=== PATIENT | male | born 1935 | race Asian ===

== ENCOUNTER 2017-03-28 13:10 | Inpatient (IN) | payer MEDICARE ==
[~2017-03-28] VITALS: Ht 167.6 cm; Wt 72.7 kg
[2017-03-28] VITALS (24 sets, daily range): BP systolic 97–124; BP diastolic 62–90
[2017-03-28] MEDS ORDERED: Piperacillin/Tazobactam 4.5 GM in NS 110 ML IV STA (13:19)
--- NOTE | 2017-03-28 13:25 | Emergency Room Report ---
History of Present Illness General Chief Complaint: Dyspnea/Respdistress Source: Medical Record Present Illness HPI 81YOM BIBEMS from SNF for cough, fever from [facility] Supposedly pulled out Gtube, Sandoval was placed in its place to hold open stoma History of Atrial Fib with Rvr- unsure if took Cardizem today On Coumadin Not contributing to HPI All info from patient record, chart Allergies: Coded Allergies: No Known Allergies (Unverified , 03/28/17) Patient History Past Medical History: AFib, psych hx, other - PNA Past Surgical History: unable to obtain Pertinent Family History: unable to obtain Social History: Denies: alcohol use, drug use, smoking Immunizations: UTD Reviewed Nursing Documentation: PMH: Agreed, PSxH: Agreed Nursing Documentation-PMH Hx Cardiac Problems: Yes Hx Hypertension: Yes Hx Pacemaker: No Hx Asthma: No Hx Diabetes: No Hx Cancer: No Hx Dialysis: No History Of Psychiatric Problem: Yes Review of Systems All Other Systems: limited - Non-verbal Physical Exam Vital Signs Date Time Temp Pulse Resp B/P Pulse Ox O2 Delivery O2 Flow Rate FiO2 03/28/17 13:12 104.2 116 26 130/90 94 Non-Rebreather Sp02 EP Interpretation: reviewed, abnormal General Appearance: normal inspection, well appearing, no apparent distress, alert, GCS 15, moderate distress, other - Diaphoretic Head: normocephalic, atraumatic Eyes: bilateral eye EOMI, bilateral eye PERRL ENT: normal ENT inspection, hearing grossly normal, normal voice Neck: normal inspection, full range of motion, supple, no bony tend Respiratory: normal inspection, lungs clear, normal breath sounds, no respiratory distress, no retraction, no wheezing Cardiovascular #1: no edema, tachycardia, irregularly irregular Gastrointestinal: normal inspection, normal bowel sounds, non tender, soft, no guarding, no hernia, other - Sandoval cath in Gtube access site. Genitourinary: no CVA tenderness Musculoskeletal: normal inspection, back normal, normal range of motion, Charbel' s Sign negative Neurologic: normal inspection, alert, oriented x3, responsive, record press supervisor III-XII nml as tested, motor strength/tone normal, speech normal Psychiatric: normal inspection, judgement/insight normal, mood/affect normal Skin: normal inspection, normal color, no rash Medical Decision Making Medicare Attestation I Keke Johnson MD hereby attest that the medical record entry for date of service, 03/28/17 accurately reflects signatures/notations that I made in my capacity as MD when I treated/diagnosed the above listed Medicare beneficiary. I attest that this information is true, accurate and complete to the best of my knowledge. I understand that any falsification, omission, or concealment of material fact may subject me to administrative, civil, or criminal liability. This patient warrants hospital admission for extreme of age and has a condition that cannot be treated as outpatient. Diagnostic Impression: Primary Impression: Sepsis Qualified Codes: A41.9 - Sepsis, unspecified organism Additional Impressions: Atrial fibrillation with tachycardic ventricular rate Hyperkalemia NANI (acute kidney injury) ER Course Sepsis - Tachycardia, fever - From SNF, covered with empiric Abx - CXR no obvious PNA - ?aspiration - Blood, Urine Cx pending Atrial fib with RVR - On Cardizem. Initial rate 160 - Improved after tx for sepsis and with IV cardizem 10mg IV Elevated troponin - Likely demand ischemia in setting of sepsis, RVR - On Coumadin so will NOT give ASA HyperK - Gave calcium, kayexelate - Did NOT give albuterol given tachycardia Gtube replacement to Dr Ayers for consult placed by Dr Whittington Endorsed to Dr Whittington at 2pm for tele admit EKG Diagnostic Results Rate: tachycardiac Rhythm: other - Atrial fib ST Segments: no acute changes ASA given to the pt in ED: No Rhythm Strip Diag. Results EP Interpretation: yes Rate: 160 Rhythm: NSR, no PVC's, no ectopy Last Vital Signs Date Time Temp Pulse Resp B/P Pulse Ox O2 Delivery O2 Flow Rate FiO2 03/28/17 13:12 104.2 116 26 130/90 94 Non-Rebreather Status: improved Disposition: ADMITTED INPATIENT Condition: Serious KEKE JOHNSON M.D. Mar 28, 2017 13:25
[2017-03-28] MEDS ORDERED: ACETAMINOP160 MG/51 GT (13:28)
[2017-03-28] MEDS ORDERED: PROTONIX40 M2 GT (13:28)
[2017-03-28] MEDS ORDERED: REGLAN10 MG GT (13:28)
[2017-03-28] MEDS ORDERED: CARDIZEM60 MG GT (13:28)
[2017-03-28] MEDS ORDERED: ALBUTEROL2.5 MG/3 M INH (13:28)
[2017-03-28] MEDS ORDERED: Acetaminophen 650 MG SUPP RECTAL ONE (13:30)
[2017-03-28] MEDS ORDERED: JEVITY 1.5 CA1000 ML GT (13:33)
[2017-03-28] MEDS ORDERED: COUMADIN4 MG GT (13:33)
[2017-03-28] MEDS ORDERED: Zosyn 4.5gm inj ONE (13:40)
[2017-03-28 13:44] LABS: MEAN CORPUSCULAR HEMOGLOBIN 30.5 PG (27.0-31.0); MEAN CORPUSCULAR HGB CONC 31.8 G/DL (32.0-36.0); MEAN CORPUSCULAR VOLUME 96 FL (80-99); MEAN PLATELET VOLUME 5.4 FL (6.5-10.1); PLATELET COUNT 212 K/UL (150-450); RED BLOOD COUNT 5.25 M/UL (4.70-6.10); RED CELL DISTRIBUTION WIDTH 15.9 % (11.6-14.8); WHITE BLOOD COUNT 10.9 K/UL (4.8-10.8)
[2017-03-28 13:56] LABS: ALANINE AMINOTRANSFERASE 18 U/L (3-41); ALBUMIN/GLOBULIN RATIO 1.2 (1.0-2.7); ANION GAP 19 (5-15); ASPARTATE AMINO TRANSFERASE 24 U/L (5-40); CALCIUM 9.9 mg/dL (8.6-10.2); CARBON DIOXIDE 21 mEQ/L (20-30); CHLORIDE 105 mEQ/L (98-107); CREATININE 1.3 mg/dL (0.7-1.2); HEMOLYSIS 4; POTASSIUM 5.6 mEQ/L (3.4-4.9); SODIUM 145 mEQ/L (135-145)
[2017-03-28 13:59] LABS: TROPONIN I 0.52 ng/mL (<=0.30)
[2017-03-28] MEDS ORDERED: Diltiazem 25mg/5ml IV ONE ×2 (14:00→14:45)
[2017-03-28 14:03] LABS: BAND NEUTROPHILS % (MANUAL) 0 % (0-8); BASOPHILS % (MANUAL) 0 % (0-2); EOSINOPHILS % (MANUAL) 0 % (0-3); LYMPHOCYTES % (MANUAL) 15 % (20-45); NEUTROPHILS % (MANUAL) 77 % (45-75); PLATELET ESTIMATE ADEQUATE; PLATELET MORPHOLOGY NORMAL; REFLEX LACTIC ACID YES OR NO YES; TOTAL CELLS COUNTED 100
[2017-03-28 14:04] LABS: ANISOCYTOSIS 1+; STOMATOCYTES 1+
[2017-03-28 14:07] LABS: CKMB 1.6 ng/mL (< 6.7)
[2017-03-28] MEDS ORDERED: Calcium Gluconate 1gm/10ml vial IVP ONE (14:15)
[2017-03-28] MEDS: Sodium Polystyrene Sulfonate 15gm Powder ORAL ONE ×2 (14:15→14:52)
[2017-03-28 14:17] LABS: BILIRUBIN,DIRECT 0.2 mg/dL (0.1-0.3)
[2017-03-28] MEDS ORDERED: DuoNeb 0.5-3(2.5)mg/3ml neb HHN PRN (14:30)
[2017-03-28] MEDS ORDERED: Vancomycin 1gm inj IVPB ONE (14:36)
--- NOTE | 2017-03-28 14:40 | Diagnostic Imaging Report ---
Indication: Dyspnea Comparison: None A single view chest radiograph was obtained. Findings: Lungs are clear. Heart is mildly enlarged. Bones are osteopenic. Aorta is mildly enlarged. Impression: No acute disease
[2017-03-28] MEDS ORDERED: Sodium Polystyrene Sulfonate Enema RECTAL ONE (15:15)
[2017-03-28 16:27] LABS: APPEARANCE,URINE SLIGHTLY CLOUDY; KETONES,URINE 1+ (NEGATIVE); LEUKOCYTE ESTERASE ,URINE 1+ (NEGATIVE); NITRITE,URINE NEGATIVE (NEGATIVE); PH,URINE 5 (4.5-8.0); PROTEIN,URINE 3+ (NEGATIVE); UROBILINOGEN,URINE NORMAL MG/DL (0.0-1.0)
[2017-03-28 16:38] LABS: AMORPHOUS SEDIMENT,UR FEW /LPF; BACTERIA,URINE MANY /HPF; RBC,URINE 60-80 /HPF (0 - 0)
[2017-03-28] MEDS ORDERED: Acetaminophen 650 MG SUPP RECTAL PRN (17:00)
[2017-03-28] MEDS: Solu-MEDROL 40mg Inj IVP SCH (17:00)
[2017-03-28] MEDS ORDERED: Vancomycin 1250mg/D5W 250ml IVPB ONE (18:00)
--- NOTE | 2017-03-28 21:45 | Cardiology Progress Note ---
Subjective Subjective 48 Objective Last 24 Hour Vital Signs Date Time Temp Pulse Resp B/P Pulse Ox O2 Delivery O2 Flow Rate FiO2 03/28/17 18:54 159 107/78 03/28/17 18:46 98.7 150 33 107/78 100 Simple Mask 8.0 03/28/17 18:05 133 27 112/86 100 Simple Mask 4.0 03/28/17 18:00 151 03/28/17 17:00 133 27 112/86 100 Simple Mask 8.0 03/28/17 14:50 122 119/90 03/28/17 14:30 104.2 122 7 119/90 100 Non-Rebreather 15.0 03/28/17 14:01 116 130/90 03/28/17 13:20 134 26 Simple Mask 8.0 03/28/17 13:20 102.0 134 26 115/82 100 Simple Mask 8.0 03/28/17 13:12 104.2 116 26 130/90 94 Non-Rebreather Laboratory Tests Test 03/28/17 13:25 03/28/17 15:25 03/28/17 16:00 White Blood Count 10.9 K/UL (4.8-10.8) H Red Blood Count 5.25 M/UL (4.70-6.10) Hemoglobin 16.0 G/DL (14.2-18.0) Hematocrit 50.5 % (42.0-52.0) Mean Corpuscular Volume 96 FL (80-99) Mean Corpuscular Hemoglobin 30.5 PG (27.0-31.0) Mean Corpuscular Hemoglobin Concent 31.8 G/DL (32.0-36.0) L Red Cell Distribution Width 15.9 % (11.6-14.8) H Platelet Count 212 K/UL (150-450) Mean Platelet Volume 5.4 FL (6.5-10.1) L Neutrophils (%) (Auto) % (45.0-75.0) Lymphocytes (%) (Auto) % (20.0-45.0) Monocytes (%) (Auto) % (1.0-10.0) Eosinophils (%) (Auto) % (0.0-3.0) Basophils (%) (Auto) % (0.0-2.0) Differential Total Cells Counted 100 Neutrophils % (Manual) 77 % (45-75) H Lymphocytes % (Manual) 15 % (20-45) L Monocytes % (Manual) 8 % (1-10) Eosinophils % (Manual) 0 % (0-3) Basophils % (Manual) 0 % (0-2) Band Neutrophils 0 % (0-8) Platelet Estimate Adequate Platelet Morphology Normal Anisocytosis 1+ Stomatocytes 1+ Sodium Level 145 mEQ/L (135-145) Potassium Level 5.6 mEQ/L (3.4-4.9) H Chloride Level 105 mEQ/L (98-107) Carbon Dioxide Level 21 mEQ/L (20-30) Anion Gap 19 (5-15) H Blood Urea Nitrogen 45 mg/dL (7-23) H Creatinine 1.3 mg/dL (0.7-1.2) H Estimat Glomerular Filtration Rate mL/min (>60) Glucose Level 136 mg/dL (74-106) H Lactic Acid Level 3.40 mmol/L (0.66-2.22) H 2.10 mmol/L (0.66-2.22) Calcium Level 9.9 mg/dL (8.6-10.2) Total Bilirubin 1.3 mg/dL (0.0-1.2) H Direct Bilirubin 0.2 mg/dL (0.1-0.3) Aspartate Amino Transf (AST/SGOT) 24 U/L (5-40) Alanine Aminotransferase (ALT/SGPT) 18 U/L (3-41) Alkaline Phosphatase 94 U/L (40-129) Total Creatine Kinase 56 U/L (38-174) Creatine Kinase MB 1.6 ng/mL (< 6.7) Creatine Kinase MB Relative Index 2.8 Troponin I 0.52 ng/mL (<=0.30) *H Pro-B-Type Natriuretic Peptide 83178 pg/mL (0-450) H Total Protein 8.0 g/dL (6.6-8.7) Albumin 4.4 g/dL (3.5-5.2) Globulin 3.6 g/dL Albumin/Globulin Ratio 1.2 (1.0-2.7) Urine Color Red Urine Appearance Slightly cloudy Urine pH 5 (4.5-8.0) Urine Specific [place] 1.025 (1.005-1.035) Urine Protein 3+ (NEGATIVE) H Urine Glucose (UA) Negative (NEGATIVE) Urine Ketones 1+ (NEGATIVE) H Urine Occult Blood 5+ (NEGATIVE) H Urine Nitrite Negative (NEGATIVE) Urine Bilirubin Negative (NEGATIVE) Urine Urobilinogen Normal MG/DL (0.0-1.0) Urine Leukocyte Esterase 1+ (NEGATIVE) H Urine RBC 60-80 /HPF (0 - 0) H Urine WBC 10-15 /HPF (0 - 0) H Urine Squamous Epithelial Cells None /LPF (NONE/OCC) Urine Amorphous Sediment Few /LPF (NONE) H Urine Bacteria Many /HPF (NONE) H NOBLE MALDONADO Mar 28, 2017 21:45
[2017-03-28] MEDS ORDERED: Zosyn 2.25gm inj IV SCH (22:00)
[2017-03-28] MEDS: Zoysn 3.37gm in D5W 110ml IVPB SCH (22:06)
--- NOTE | 2017-03-28 22:11 | Infectious Diseases Prog Note ---
Assessment/Plan Assessment/Plan Full consult dictated: A) 1) sepsis, uti, fevers, sob 2) arely 3) pmh noted P) 1) zosyn and vancomycin 2) check labs, cultures and chest x-ray 3) thank you Subjective Allergies: Coded Allergies: No Known Allergies (Unverified , 03/28/17) Objective Vital Signs Last 24 Hour Vital Signs Date Time Temp Pulse Resp B/P Pulse Ox O2 Delivery O2 Flow Rate FiO2 03/28/17 21:00 108 24 124/83 100 Simple Mask 8.0 03/28/17 20:00 111 23 120/71 100 Simple Mask 8.0 03/28/17 18:54 159 107/78 03/28/17 18:46 98.7 150 33 107/78 100 Simple Mask 8.0 03/28/17 18:05 133 27 112/86 100 Simple Mask 4.0 03/28/17 18:00 151 03/28/17 17:00 133 27 112/86 100 Simple Mask 8.0 03/28/17 14:50 122 119/90 03/28/17 14:30 104.2 122 7 119/90 100 Non-Rebreather 15.0 03/28/17 14:01 116 130/90 03/28/17 13:20 134 26 Simple Mask 8.0 03/28/17 13:20 102.0 134 26 115/82 100 Simple Mask 8.0 03/28/17 13:12 104.2 116 26 130/90 94 Non-Rebreather Height (Feet): 5 Height (Inches): 6.00 Weight (Pounds): 130 Laboratory Tests Test 03/28/17 13:25 03/28/17 15:25 03/28/17 16:00 03/28/17 21:50 White Blood Count 10.9 K/UL (4.8-10.8) H Red Blood Count 5.25 M/UL (4.70-6.10) Hemoglobin 16.0 G/DL (14.2-18.0) Hematocrit 50.5 % (42.0-52.0) Mean Corpuscular Volume 96 FL (80-99) Mean Corpuscular Hemoglobin 30.5 PG (27.0-31.0) Mean Corpuscular Hemoglobin Concent 31.8 G/DL (32.0-36.0) L Red Cell Distribution Width 15.9 % (11.6-14.8) H Platelet Count 212 K/UL (150-450) Mean Platelet Volume 5.4 FL (6.5-10.1) L Neutrophils (%) (Auto) % (45.0-75.0) Lymphocytes (%) (Auto) % (20.0-45.0) Monocytes (%) (Auto) % (1.0-10.0) Eosinophils (%) (Auto) % (0.0-3.0) Basophils (%) (Auto) % (0.0-2.0) Differential Total Cells Counted 100 Neutrophils % (Manual) 77 % (45-75) H Lymphocytes % (Manual) 15 % (20-45) L Monocytes % (Manual) 8 % (1-10) Eosinophils % (Manual) 0 % (0-3) Basophils % (Manual) 0 % (0-2) Band Neutrophils 0 % (0-8) Platelet Estimate Adequate Platelet Morphology Normal Anisocytosis 1+ Stomatocytes 1+ Sodium Level 145 mEQ/L (135-145) Potassium Level 5.6 mEQ/L (3.4-4.9) H Chloride Level 105 mEQ/L (98-107) Carbon Dioxide Level 21 mEQ/L (20-30) Anion Gap 19 (5-15) H Blood Urea Nitrogen 45 mg/dL (7-23) H Creatinine 1.3 mg/dL (0.7-1.2) H Estimat Glomerular Filtration Rate mL/min (>60) Glucose Level 136 mg/dL (74-106) H Lactic Acid Level 3.40 mmol/L (0.66-2.22) H 2.10 mmol/L (0.66-2.22) Pending Calcium Level 9.9 mg/dL (8.6-10.2) Total Bilirubin 1.3 mg/dL (0.0-1.2) H Direct Bilirubin 0.2 mg/dL (0.1-0.3) Aspartate Amino Transf (AST/SGOT) 24 U/L (5-40) Alanine Aminotransferase (ALT/SGPT) 18 U/L (3-41) Alkaline Phosphatase 94 U/L (40-129) Total Creatine Kinase 56 U/L (38-174) Creatine Kinase MB 1.6 ng/mL (< 6.7) Creatine Kinase MB Relative Index 2.8 Troponin I 0.52 ng/mL (<=0.30) *H Pending Pro-B-Type Natriuretic Peptide 97036 pg/mL (0-450) H Total Protein 8.0 g/dL (6.6-8.7) Albumin 4.4 g/dL (3.5-5.2) Globulin 3.6 g/dL Albumin/Globulin Ratio 1.2 (1.0-2.7) Urine Color Red Urine Appearance Slightly cloudy Urine pH 5 (4.5-8.0) Urine Specific [place] 1.025 (1.005-1.035) Urine Protein 3+ (NEGATIVE) H Urine Glucose (UA) Negative (NEGATIVE) Urine Ketones 1+ (NEGATIVE) H Urine Occult Blood 5+ (NEGATIVE) H Urine Nitrite Negative (NEGATIVE) Urine Bilirubin Negative (NEGATIVE) Urine Urobilinogen Normal MG/DL (0.0-1.0) Urine Leukocyte Esterase 1+ (NEGATIVE) H Urine RBC 60-80 /HPF (0 - 0) H Urine WBC 10-15 /HPF (0 - 0) H Urine Squamous Epithelial Cells None /LPF (NONE/OCC) Urine Amorphous Sediment Few /LPF (NONE) H Urine Bacteria Many /HPF (NONE) H Current Medications Medications (Trade) Dose Ordered Sig/Angel Route PRN Reason Start Time Stop Time Status Last Admin Dose Admin Acetaminophen 650 mg 650 mg Q4H PRN RECTAL Mild Pain (Pain Scale 1-3) 03/28/17 17:00 04/27/17 16:59 03/28/17 17:20 Albuterol/ Ipratropium (DuoNeb 0.5-3(2.5)mg/3ml) 3 ml 5x DAILYPRN PRN HHN Shortness of Breath 03/28/17 14:30 04/02/17 14:29 Clotrimazole (Lotrimin) 1 applic TWICE A DAY TOPIC 03/28/17 18:00 04/27/17 17:59 Dextrose STAT PRN IV Hypoglycemia 03/28/17 14:30 04/27/17 14:29 Diltiazem HCl/ Dextrose (Cardizem/D5W) 125 ml @ 0 mls/hr Q24H IV 03/28/17 19:00 03/29/17 18:59 03/28/17 18:54 Methylprednisolone Sodium Succinate (Solu-MEDROL) 40 mg EVERY 6 HOURS IVP 03/28/17 17:00 04/27/17 16:59 03/28/17 17:00 Ondansetron HCl (Zofran) 4 mg Q6H PRN IVP Nausea & Vomiting 03/28/17 14:30 04/27/17 14:29 Piperacillin Sod/ Tazobactam Sod/ Dextrose (Zosyn/D5W) 110 ml @ 27.5 mls/hr EVERY 8 HOURS IVPB 03/28/17 22:00 04/02/17 21:59 03/28/17 22:06 Sodium Chloride (0.45% NS 1000ml) 1,000 ml @ 50 mls/hr Q20H IV 03/28/17 17:00 04/27/17 16:59 03/28/17 17:00 Vancomycin HCl (Vanco rx to dose) 1 ea DAILY PRN MISC PRN RX PROTOCOL 03/28/17 16:30 04/27/17 16:29 Vancomycin HCl 750 mg/Dextrose 275 ml @ 183.708 mls/hr Q24H IVPB 03/29/17 18:00 04/03/17 17:59 ZANE DE LEON Mar 28, 2017 22:11
[2017-03-28 22:26] LABS: TROPONIN I < 0.30 ng/mL (<=0.30)
--- NOTE | 2017-03-28 23:15 | History and Physical Report ---
DATE OF ADMISSION: 03/28/2017 CHIEF COMPLAINT: Shortness of breath. HISTORY OF PRESENT ILLNESS: This is an 81-year-old [place] male, who is a resident of [facility]. I was called yesterday about the patient pulling his GT tube. This morning, the patient became short of breath and is transferred to this hospital ER. He is admitted to ICU in full-blown respiratory failure. The patient's daughter is at the bedside. The patient just came in few weeks ago to a [place] from [facility]. PAST MEDICAL HISTORY: 1. Status post CVA. 2. Chronic atrial fibrillation. 3. Hypokalemia. 4. COPD. HOME MEDICATIONS: Tylenol, albuterol, diltiazem, metoclopramide, Protonix, and Coumadin. ALLERGIES: No known drug allergies. FAMILY HISTORY: Unremarkable. SOCIAL HISTORY: [facility]. HABITS: He is nonsmoker. REVIEW OF SYSTEMS: Unable to obtain due to his mental status. PHYSICAL EXAMINATION: GENERAL: This is an elderly [place] male, who is in respiratory distress. VITAL SIGNS: Blood pressure 130/70, heart rate initially 160 to 170 and after Cardizem bolus went down to 116, . HEENT: Head is normocephalic and atraumatic. Pupils are equal, round, and reactive to light and accommodation. The patient is diaphoretic. NECK: Supple. Trachea midline. There was no lymphadenopathy or thyromegaly. LUNGS: HEART: Tachycardic and irregularly irregular. ABDOMEN: Slightly distended. Bowel sounds were active. He has a Sandoval catheter inserted in lieu of the G-tube. EXTREMITIES: No clubbing, cyanosis, or edema. He has advanced muscle wasting. NEUROLOGICAL: He is obtunded. There were no gross focal findings. LABORATORY AND ANCILLARY DATA: CBC, hemoglobin 16, otherwise within normal limits. Chemistry shows a sodium 145, potassium 5.6, BUN 45, creatinine 1.3, and glucose 136. Lactic acid is 3.4. Troponin level 0.52. ProBNP 11,116. ASSESSMENT: 1. Most likely aspiration episode with pneumonia. 2. Sepsis. 3. Status post cerebrovascular accident. 4. Chronic atrial fibrillation. 5. Hypokalemia. 6. Chronic obstructive pulmonary disease. PLAN: 1. Admit to intensive care unit. 2. Intravenous antibiotics. 3. ID, Pulmonary, and Cardiology consult. 4. Continue Coumadin per pharmacy protocol. 5. Obtain new G-tube. Eugene Caraballo M.D. DR: LUIS M JOB#: [id number] CC:
[2017-03-28 23:23] LABS: INR 1.3 (0.9-1.1)
[2017-03-29] VITALS (61 sets, daily range): BP systolic 94–134; BP diastolic 64–93
[2017-03-29] MEDS: Solu-MEDROL 40mg Inj IVP SCH ×5 (00:22→23:34)
[2017-03-29 05:45] LABS: TROPONIN I < 0.30 ng/mL (<=0.30)
[2017-03-29 05:54] LABS: BASOPHILS % (AUTO) 0.2 % (0.0-2.0); LYMPHOCYTES % (AUTO) 25.8 % (20.0-45.0); MEAN CORPUSCULAR HEMOGLOBIN 31.2 PG (27.0-31.0); MEAN CORPUSCULAR HGB CONC 32.6 G/DL (32.0-36.0); MEAN CORPUSCULAR VOLUME 96 FL (80-99); MEAN PLATELET VOLUME 5.9 FL (6.5-10.1); MONOCYTES % (AUTO) 1.5 % (1.0-10.0); NEUTROPHILS % (AUTO) 72.6 % (45.0-75.0); PLATELET COUNT 173 K/UL (150-450); RED BLOOD COUNT 4.06 M/UL (4.70-6.10); RED CELL DISTRIBUTION WIDTH 15.6 % (11.6-14.8); WHITE BLOOD COUNT 9.2 K/UL (4.8-10.8)
[2017-03-29] MEDS: Zoysn 3.37gm in D5W 110ml IVPB SCH ×3 (05:54→21:42)
[2017-03-29 05:56] LABS: ANION GAP 12 (5-15); CALCIUM 8.7 mg/dL (8.6-10.2); CARBON DIOXIDE 23 mEQ/L (20-30); CHLORIDE 111 mEQ/L (98-107); HEMOLYSIS 4; MAGNESIUM 2.3 mg/dL (1.7-2.5); POTASSIUM 4.4 mEQ/L (3.4-4.9); SODIUM 146 mEQ/L (135-145)
[2017-03-29] MEDS ORDERED: Tubing IV Secondary IV ONE (10:19)
[2017-03-29] MEDS ORDERED: Acetaminophen 650mg/20.3ml GT PRN (11:00)
--- NOTE | 2017-03-29 11:45 | Diagnostic Imaging Report ---
Indications: Dorsal breath Technique: Portable AP chest Findings: Comparison: 03/28/17 Inspiratory effort has decreased. Linear density has developed in the left lung base. Right lung remains clear except for persistent mild prominence of bronchovascular markings in space. Cardiac silhouette remains enlarged. Pulmonary vasculature remains within normal limits. No pleural abnormality. IMPRESSION: Element of subsegmental atelectasis left lung base Persistent prominence vascular markings right lung base, likely compressive Stable cardiomegaly
--- NOTE | 2017-03-29 12:00 | Consultation ---
DATE OF CONSULTATION: 03/28/2017 CARDIOLOGY CONSULTATION CONSULTING PHYSICIAN: Alona Frye M.D. REFERRING PHYSICIAN: Eugene Caraballo M.D. REASON FOR EVALUATION: Septic shock and atrial fibrillation with rapid ventricular rate. HISTORY OF PRESENT ILLNESS: History is taken from discussion with the emergency department physician, . The patient is nonverbal and unable to give any history. [facility] and heart rate increasing, atrial fibrillation, which appears to be chronic. He also has some significant psychiatric background disorder and has a G-tube which actually he pulled and a Sandoval catheter was put in place. Based on the previous records, the patient was on Coumadin before. Unfortunately, because of lack of communication with the patient, I cannot obtain review of systems. MEDICATIONS: His home medications prior to admission were all reviewed. PHYSICAL EXAMINATION: GENERAL: Reveals a sick man, stiff without motion, opens his eyes, does not follow any instructions. He has clutches rubber ball in his right hand. He appears to be flushed. VITAL SIGNS: Significant for blood pressure 115/80, heart rate is 130, temperature was 102.0, and oxygen saturation was on simple mask, it was 94 to 100%. Again, the patient appears to be very toxic, stiff. HEENT: He opens only his right eye, but I do not see obvious facial asymmetry. LUNGS: He has scattered rales. He looks cachectic. His PMI is palpable in the sixth intercostal space in anterior axillary line. He has a bouncing PMI, left ventricular heave. S1 is loud. S2 is physiologically split and also loud. HEART: His heart rate is extremely fast and irregular. ABDOMEN: Soft. There is a G-tube sticking out and there is Band-Aid on the top of it. EXTREMITIES: Lower extremity, he has skin discoloration in the ankle areas, brownish discoloration. Distal pulses barely palpable. His extremities are cold, but there is no acute ischemic changes. NEUROLOGICAL: Again, the patient is very stiff, not moving and not clear if he has lateralized neurologic deficit. LABORATORY AND DIAGNOSTIC DATA: His chest x-ray did not show pneumonia. His EKG shows heart rate about 130 beats per minute and he has evidence of left ventricular hypertrophy with strain. His laboratory data revealed potassium of 5.6, creatinine 1.3, BUN is 45. Lactic acid 3.4 . Troponin 0.52. ProBNP is 11,015. Creatinine is 1.3. Anion gap is 19. IMPRESSION AND RECOMMENDATIONS: Atrial fibrillation with rapid ventricular rate, most likely due to sepsis and looks like it was not new because the patient was anticoagulated in the past, so rate is going to be controlled with IV diltiazem. Also, the patient is septic, source of sepsis is unclear. The workup is going to be done, maybe he does not show pneumonia because he is very dehydrated. He is on the way to intensive care unit. We are going to check his PT/INR. We are going to control his rate with diltiazem drip. His condition is critical and I spent approximately one hour evaluating this patient and I am going him follow him on a daily basis. Thank you very much for your consultation. Alona Frye M.D. DR: INDERJIT JOB#: [id number] CC:
--- NOTE | 2017-03-29 12:16 | Infectious Diseases Prog Note ---
Assessment/Plan Assessment/Plan Full consult dictated: A) 1) sepsis, uti, fevers, sob, chest x-ray - atx 2) arely 3) pmh noted 4) allergies - negative P) 1) zosyn and vancomycin 2) check labs, cultures and chest x-ray 3) d/w Dr Hernandez Subjective Allergies: Coded Allergies: No Known Allergies (Unverified , 03/28/17) Objective Vital Signs Last 24 Hour Vital Signs Date Time Temp Pulse Resp B/P Pulse Ox O2 Delivery O2 Flow Rate FiO2 03/29/17 12:02 89 03/29/17 12:01 97.6 89 16 118/80 100 Non-Rebreather 35 03/29/17 11:30 90 16 120/75 100 Non-Rebreather 35 03/29/17 11:10 89 16 118/80 100 Non-Rebreather 35 03/29/17 10:30 86 16 113/75 100 Non-Rebreather 35 03/29/17 10:02 90 16 124/90 100 Non-Rebreather 35 03/29/17 09:43 95 124/90 03/29/17 09:33 92 16 129/90 100 Non-Rebreather 35 03/29/17 09:02 98 15 134/72 100 Non-Rebreather 35 03/29/17 08:30 96 15 128/86 100 Non-Rebreather 35 03/29/17 08:00 97.5 98 15 124/68 100 Non-Rebreather 35 03/29/17 08:00 98 03/29/17 07:22 Venturi Mask 6.0 35 03/29/17 07:21 99 Venturi Mask 6.0 35 03/29/17 07:21 103 20 Venturi Mask 6.0 35 03/29/17 07:00 93 15 123/86 100 Non-Rebreather 35 03/29/17 06:45 100 17 117/81 100 Non-Rebreather 35 03/29/17 06:30 102 15 117/81 100 Non-Rebreather 35 03/29/17 06:15 102 18 115/68 100 Non-Rebreather 35 03/29/17 06:00 101 18 121/90 99 Non-Rebreather 35 03/29/17 05:45 100 16 110/93 99 Non-Rebreather 35 03/29/17 05:30 98 15 111/83 100 Non-Rebreather 35 03/29/17 05:15 100 15 126/69 100 Non-Rebreather 35 03/29/17 05:00 104 17 107/75 99 Non-Rebreather 35 03/29/17 04:45 108 17 107/75 99 Non-Rebreather 35 03/29/17 04:30 102 17 113/80 98 Non-Rebreather 35 03/29/17 04:15 99 18 110/74 99 Non-Rebreather 35 03/29/17 04:00 97.8 100 16 98/70 99 Non-Rebreather 35 03/29/17 04:00 100 03/29/17 03:45 101 18 105/70 99 Non-Rebreather 35 03/29/17 03:30 101 18 111/65 99 Non-Rebreather 35 03/29/17 03:15 100 16 105/80 99 Non-Rebreather 35 03/29/17 03:00 100 17 100/78 99 Non-Rebreather 35 03/29/17 02:45 103 19 101/77 99 Non-Rebreather 35 03/29/17 02:30 102 18 115/73 99 Non-Rebreather 35 03/29/17 02:15 108 21 116/80 98 Non-Rebreather 35 03/29/17 02:00 106 18 106/81 99 Non-Rebreather 35 03/29/17 01:45 109 20 114/82 99 Non-Rebreather 35 03/29/17 01:30 110 21 120/90 99 Non-Rebreather 35 03/29/17 01:15 113 21 123/93 99 Non-Rebreather 35 03/29/17 01:00 109 21 114/73 99 Non-Rebreather 35 03/29/17 00:45 110 22 98/66 98 Non-Rebreather 35 03/29/17 00:30 109 23 118/80 98 Non-Rebreather 35 03/29/17 00:15 111 22 106/78 97 Non-Rebreather 35 03/29/17 00:00 110 03/29/17 00:00 98.4 109 21 106/78 98 Non-Rebreather 35 03/28/17 23:45 110 22 110/72 98 Non-Rebreather 35 03/28/17 23:30 110 22 112/75 100 Non-Rebreather 35 03/28/17 23:15 108 22 97/73 100 Non-Rebreather 35 03/28/17 23:00 110 24 116/68 100 Non-Rebreather 35 03/28/17 22:45 108 23 116/68 100 Non-Rebreather 35 03/28/17 22:30 109 23 120/84 100 Non-Rebreather 35 03/28/17 22:15 110 24 104/83 100 Non-Rebreather 35 03/28/17 22:00 115 24 109/87 100 Simple Mask 8.0 03/28/17 21:45 107 24 105/62 100 Non-Rebreather 35 03/28/17 21:30 107 24 105/62 100 Non-Rebreather 35 03/28/17 21:15 108 23 116/71 100 Non-Rebreather 35 03/28/17 21:00 108 24 124/83 100 Simple Mask 8.0 03/28/17 20:45 109 22 115/83 100 Non-Rebreather 35 03/28/17 20:30 110 23 99/70 100 Non-Rebreather 35 03/28/17 20:15 111 23 112/74 100 Non-Rebreather 35 03/28/17 20:00 121 03/28/17 20:00 111 23 120/71 100 Simple Mask 8.0 03/28/17 19:45 98.8 116 25 108/89 100 Non-Rebreather 35 03/28/17 19:30 118 24 108/89 100 Non-Rebreather 35 03/28/17 19:30 96 Venturi Mask 6.0 35 03/28/17 19:30 Venturi Mask 6.0 35 03/28/17 19:30 120 20 Venturi Mask 6.0 35 03/28/17 19:15 121 25 120/71 100 Non-Rebreather 35 03/28/17 19:00 131 24 120/71 100 Non-Rebreather 35 03/28/17 18:54 159 107/78 03/28/17 18:46 98.7 150 33 107/78 100 Simple Mask 8.0 03/28/17 18:05 133 27 112/86 100 Simple Mask 4.0 03/28/17 18:00 151 03/28/17 17:00 133 27 112/86 100 Simple Mask 8.0 03/28/17 14:50 122 119/90 03/28/17 14:30 104.2 122 7 119/90 100 Non-Rebreather 15.0 03/28/17 14:01 116 130/90 03/28/17 13:20 134 26 Simple Mask 8.0 03/28/17 13:20 102.0 134 26 115/82 100 Simple Mask 8.0 03/28/17 13:12 104.2 116 26 130/90 94 Non-Rebreather Height (Feet): 5 Height (Inches): 6.00 Weight (Pounds): 133 Microbiology Date/Time Source Procedure Growth Status 03/28/17 16:00 Urine,Clean Catch Urine Culture - Preliminary NO GROWTH Resulted Laboratory Tests Test 03/28/17 13:25 03/28/17 15:25 03/28/17 16:00 03/28/17 21:50 White Blood Count 10.9 K/UL (4.8-10.8) H Red Blood Count 5.25 M/UL (4.70-6.10) Hemoglobin 16.0 G/DL (14.2-18.0) Hematocrit 50.5 % (42.0-52.0) Mean Corpuscular Volume 96 FL (80-99) Mean Corpuscular Hemoglobin 30.5 PG (27.0-31.0) Mean Corpuscular Hemoglobin Concent 31.8 G/DL (32.0-36.0) L Red Cell Distribution Width 15.9 % (11.6-14.8) H Platelet Count 212 K/UL (150-450) Mean Platelet Volume 5.4 FL (6.5-10.1) L Neutrophils (%) (Auto) % (45.0-75.0) Lymphocytes (%) (Auto) % (20.0-45.0) Monocytes (%) (Auto) % (1.0-10.0) Eosinophils (%) (Auto) % (0.0-3.0) Basophils (%) (Auto) % (0.0-2.0) Differential Total Cells Counted 100 Neutrophils % (Manual) 77 % (45-75) H Lymphocytes % (Manual) 15 % (20-45) L Monocytes % (Manual) 8 % (1-10) Eosinophils % (Manual) 0 % (0-3) Basophils % (Manual) 0 % (0-2) Band Neutrophils 0 % (0-8) Platelet Estimate Adequate Platelet Morphology Normal Anisocytosis 1+ Stomatocytes 1+ Sodium Level 145 mEQ/L (135-145) Potassium Level 5.6 mEQ/L (3.4-4.9) H Chloride Level 105 mEQ/L (98-107) Carbon Dioxide Level 21 mEQ/L (20-30) Anion Gap 19 (5-15) H Blood Urea Nitrogen 45 mg/dL (7-23) H Creatinine 1.3 mg/dL (0.7-1.2) H Estimat Glomerular Filtration Rate mL/min (>60) Glucose Level 136 mg/dL (74-106) H Lactic Acid Level 3.40 mmol/L (0.66-2.22) H 2.10 mmol/L (0.66-2.22) 1.50 mmol/L (0.66-2.22) Calcium Level 9.9 mg/dL (8.6-10.2) Total Bilirubin 1.3 mg/dL (0.0-1.2) H Direct Bilirubin 0.2 mg/dL (0.1-0.3) Aspartate Amino Transf (AST/SGOT) 24 U/L (5-40) Alanine Aminotransferase (ALT/SGPT) 18 U/L (3-41) Alkaline Phosphatase 94 U/L (40-129) Total Creatine Kinase 56 U/L (38-174) Creatine Kinase MB 1.6 ng/mL (< 6.7) Creatine Kinase MB Relative Index 2.8 Troponin I 0.52 ng/mL (<=0.30) *H < 0.30 ng/mL (<=0.30) Pro-B-Type Natriuretic Peptide 69541 pg/mL (0-450) H Total Protein 8.0 g/dL (6.6-8.7) Albumin 4.4 g/dL (3.5-5.2) Globulin 3.6 g/dL Albumin/Globulin Ratio 1.2 (1.0-2.7) Urine Color Red Urine Appearance Slightly cloudy Urine pH 5 (4.5-8.0) Urine Specific [place] 1.025 (1.005-1.035) Urine Protein 3+ (NEGATIVE) H Urine Glucose (UA) Negative (NEGATIVE) Urine Ketones 1+ (NEGATIVE) H Urine Occult Blood 5+ (NEGATIVE) H Urine Nitrite Negative (NEGATIVE) Urine Bilirubin Negative (NEGATIVE) Urine Urobilinogen Normal MG/DL (0.0-1.0) Urine Leukocyte Esterase 1+ (NEGATIVE) H Urine RBC 60-80 /HPF (0 - 0) H Urine WBC 10-15 /HPF (0 - 0) H Urine Squamous Epithelial Cells None /LPF (NONE/OCC) Urine Amorphous Sediment Few /LPF (NONE) H Urine Bacteria Many /HPF (NONE) H Test 03/28/17 23:00 03/29/17 04:30 Prothrombin Time 14.0 SEC (9.30-11.50) H Prothromb Time International Ratio 1.3 (0.9-1.1) H White Blood Count 9.2 K/UL (4.8-10.8) Red Blood Count 4.06 M/UL (4.70-6.10) L Hemoglobin 12.7 G/DL (14.2-18.0) L Hematocrit 39.0 % (42.0-52.0) L Mean Corpuscular Volume 96 FL (80-99) Mean Corpuscular Hemoglobin 31.2 PG (27.0-31.0) H Mean Corpuscular Hemoglobin Concent 32.6 G/DL (32.0-36.0) Red Cell Distribution Width 15.6 % (11.6-14.8) H Platelet Count 173 K/UL (150-450) Mean Platelet Volume 5.9 FL (6.5-10.1) L Neutrophils (%) (Auto) 72.6 % (45.0-75.0) Lymphocytes (%) (Auto) 25.8 % (20.0-45.0) Monocytes (%) (Auto) 1.5 % (1.0-10.0) Eosinophils (%) (Auto) 0.0 % (0.0-3.0) Basophils (%) (Auto) 0.2 % (0.0-2.0) Sodium Level 146 mEQ/L (135-145) H Potassium Level 4.4 mEQ/L (3.4-4.9) Chloride Level 111 mEQ/L (98-107) H Carbon Dioxide Level 23 mEQ/L (20-30) Anion Gap 12 (5-15) Blood Urea Nitrogen 46 mg/dL (7-23) H Creatinine 1.0 mg/dL (0.7-1.2) Estimat Glomerular Filtration Rate mL/min (>60) Glucose Level 166 mg/dL (74-106) H Calcium Level 8.7 mg/dL (8.6-10.2) Magnesium Level 2.3 mg/dL (1.7-2.5) Troponin I < 0.30 ng/mL (<=0.30) Current Medications Medications (Trade) Dose Ordered Sig/Angel Route PRN Reason Start Time Stop Time Status Last Admin Dose Admin Acetaminophen (Tylenol) 650 mg Q4H PRN GT Mild Pain/Temp > 100.5 03/29/17 11:00 04/28/17 10:59 Albuterol/ Ipratropium (DuoNeb 0.5-3(2.5)mg/3ml) 3 ml 5x DAILYPRN PRN HHN Shortness of Breath 03/28/17 14:30 04/02/17 14:29 Clotrimazole (Lotrimin) 1 applic TWICE A DAY TOPIC 03/28/17 18:00 04/27/17 17:59 03/29/17 08:57 Dextrose STAT PRN IV Hypoglycemia 03/28/17 14:30 04/27/17 14:29 Diltiazem HCl/ Dextrose (Cardizem/D5W) 125 ml @ 0 mls/hr Q24H IV 03/28/17 19:00 03/29/17 18:59 03/29/17 09:43 Methylprednisolone Sodium Succinate (Solu-MEDROL) 40 mg EVERY 6 HOURS IVP 03/28/17 17:00 04/27/17 16:59 03/29/17 12:13 Ondansetron HCl (Zofran) 4 mg Q6H PRN IVP Nausea & Vomiting 03/28/17 14:30 04/27/17 14:29 Piperacillin Sod/ Tazobactam Sod/ Dextrose (Zosyn/D5W) 110 ml @ 27.5 mls/hr EVERY 8 HOURS IVPB 03/28/17 22:00 04/02/17 21:59 03/29/17 05:54 Sodium Chloride (0.45% NS 1000ml) 1,000 ml @ 50 mls/hr Q20H IV 03/28/17 17:00 04/27/17 16:59 03/28/17 17:00 Vancomycin HCl 750 mg/Dextrose 275 ml @ 183.708 mls/hr Q24H IVPB 03/29/17 18:00 04/03/17 17:59 Vancomycin HCl 1 ea 1 ea DAILY PRN MISC PRN RX PROTOCOL 03/28/17 16:30 04/27/17 16:29 ZANE DE LEON Mar 29, 2017 12:16
--- NOTE | 2017-03-29 12:23 | General Progress Note ---
Assessment/Plan Assessment/Plan Aspiration Pneumonia + Sepsis -improving. Rapid A. Fib. - improving DW pt's son + ID Subjective Allergies: Coded Allergies: No Known Allergies (Unverified , 03/28/17) Subjective More alert. Objective Last 24 Hour Vital Signs Date Time Temp Pulse Resp B/P Pulse Ox O2 Delivery O2 Flow Rate FiO2 03/29/17 12:02 89 03/29/17 12:01 97.6 89 16 118/80 100 Non-Rebreather 35 03/29/17 11:30 90 16 120/75 100 Non-Rebreather 35 03/29/17 11:10 89 16 118/80 100 Non-Rebreather 35 03/29/17 10:30 86 16 113/75 100 Non-Rebreather 35 03/29/17 10:02 90 16 124/90 100 Non-Rebreather 35 03/29/17 09:43 95 124/90 03/29/17 09:33 92 16 129/90 100 Non-Rebreather 35 03/29/17 09:02 98 15 134/72 100 Non-Rebreather 35 03/29/17 08:30 96 15 128/86 100 Non-Rebreather 35 03/29/17 08:00 97.5 98 15 124/68 100 Non-Rebreather 35 03/29/17 08:00 98 03/29/17 07:22 Venturi Mask 6.0 35 03/29/17 07:21 99 Venturi Mask 6.0 35 03/29/17 07:21 103 20 Venturi Mask 6.0 35 03/29/17 07:00 93 15 123/86 100 Non-Rebreather 35 03/29/17 06:45 100 17 117/81 100 Non-Rebreather 35 03/29/17 06:30 102 15 117/81 100 Non-Rebreather 35 03/29/17 06:15 102 18 115/68 100 Non-Rebreather 35 03/29/17 06:00 101 18 121/90 99 Non-Rebreather 35 03/29/17 05:45 100 16 110/93 99 Non-Rebreather 35 03/29/17 05:30 98 15 111/83 100 Non-Rebreather 35 03/29/17 05:15 100 15 126/69 100 Non-Rebreather 35 03/29/17 05:00 104 17 107/75 99 Non-Rebreather 35 03/29/17 04:45 108 17 107/75 99 Non-Rebreather 35 03/29/17 04:30 102 17 113/80 98 Non-Rebreather 35 03/29/17 04:15 99 18 110/74 99 Non-Rebreather 35 03/29/17 04:00 97.8 100 16 98/70 99 Non-Rebreather 35 03/29/17 04:00 100 03/29/17 03:45 101 18 105/70 99 Non-Rebreather 35 03/29/17 03:30 101 18 111/65 99 Non-Rebreather 35 03/29/17 03:15 100 16 105/80 99 Non-Rebreather 35 03/29/17 03:00 100 17 100/78 99 Non-Rebreather 35 03/29/17 02:45 103 19 101/77 99 Non-Rebreather 35 03/29/17 02:30 102 18 115/73 99 Non-Rebreather 35 03/29/17 02:15 108 21 116/80 98 Non-Rebreather 35 03/29/17 02:00 106 18 106/81 99 Non-Rebreather 35 03/29/17 01:45 109 20 114/82 99 Non-Rebreather 35 03/29/17 01:30 110 21 120/90 99 Non-Rebreather 35 03/29/17 01:15 113 21 123/93 99 Non-Rebreather 35 03/29/17 01:00 109 21 114/73 99 Non-Rebreather 35 03/29/17 00:45 110 22 98/66 98 Non-Rebreather 35 03/29/17 00:30 109 23 118/80 98 Non-Rebreather 35 03/29/17 00:15 111 22 106/78 97 Non-Rebreather 35 03/29/17 00:00 110 03/29/17 00:00 98.4 109 21 106/78 98 Non-Rebreather 35 03/28/17 23:45 110 22 110/72 98 Non-Rebreather 35 03/28/17 23:30 110 22 112/75 100 Non-Rebreather 35 03/28/17 23:15 108 22 97/73 100 Non-Rebreather 35 03/28/17 23:00 110 24 116/68 100 Non-Rebreather 35 03/28/17 22:45 108 23 116/68 100 Non-Rebreather 35 03/28/17 22:30 109 23 120/84 100 Non-Rebreather 35 03/28/17 22:15 110 24 104/83 100 Non-Rebreather 35 03/28/17 22:00 115 24 109/87 100 Simple Mask 8.0 03/28/17 21:45 107 24 105/62 100 Non-Rebreather 35 03/28/17 21:30 107 24 105/62 100 Non-Rebreather 35 03/28/17 21:15 108 23 116/71 100 Non-Rebreather 35 03/28/17 21:00 108 24 124/83 100 Simple Mask 8.0 03/28/17 20:45 109 22 115/83 100 Non-Rebreather 35 03/28/17 20:30 110 23 99/70 100 Non-Rebreather 35 03/28/17 20:15 111 23 112/74 100 Non-Rebreather 35 03/28/17 20:00 121 03/28/17 20:00 111 23 120/71 100 Simple Mask 8.0 03/28/17 19:45 98.8 116 25 108/89 100 Non-Rebreather 35 03/28/17 19:30 118 24 108/89 100 Non-Rebreather 35 03/28/17 19:30 96 Venturi Mask 6.0 35 03/28/17 19:30 Venturi Mask 6.0 35 03/28/17 19:30 120 20 Venturi Mask 6.0 35 03/28/17 19:15 121 25 120/71 100 Non-Rebreather 35 03/28/17 19:00 131 24 120/71 100 Non-Rebreather 35 03/28/17 18:54 159 107/78 03/28/17 18:46 98.7 150 33 107/78 100 Simple Mask 8.0 03/28/17 18:05 133 27 112/86 100 Simple Mask 4.0 03/28/17 18:00 151 03/28/17 17:00 133 27 112/86 100 Simple Mask 8.0 03/28/17 14:50 122 119/90 03/28/17 14:30 104.2 122 7 119/90 100 Non-Rebreather 15.0 03/28/17 14:01 116 130/90 03/28/17 13:20 134 26 Simple Mask 8.0 03/28/17 13:20 102.0 134 26 115/82 100 Simple Mask 8.0 03/28/17 13:12 104.2 116 26 130/90 94 Non-Rebreather Intake and Output 03/28/17 03/29/17 19:00 07:00 Intake Total 175 ml 735.0 ml Output Total 300 ml 480 ml Balance -125 ml 255.0 ml Intake IV Total 175 ml 735.0 ml Output Urine Total 300 ml 480 ml # Voids 2 1 Laboratory Tests 03/28/17 13:25: White Blood Count 10.9H, Red Blood Count 5.25, Hemoglobin 16.0, Hematocrit 50.5 , Mean Corpuscular Volume 96, Mean Corpuscular Hemoglobin 30.5, Mean Corpuscular Hemoglobin Concent 31.8L, Red Cell Distribution Width 15.9H, Platelet Count 212, Mean Platelet Volume 5.4L, Neutrophils (%) (Auto) , Lymphocytes (%) (Auto) , Monocytes (%) (Auto) , Eosinophils (%) (Auto) , Basophils (%) (Auto) , Differential Total Cells Counted 100, Neutrophils % ( Manual) 77H, Lymphocytes % (Manual) 15L, Monocytes % (Manual) 8, Eosinophils % ( Manual) 0, Basophils % (Manual) 0, Band Neutrophils 0, Platelet Estimate Adequate, Platelet Morphology Normal, Anisocytosis 1+, Stomatocytes 1+, Sodium Level 145, Potassium Level 5.6H, Chloride Level 105, Carbon Dioxide Level 21, Anion Gap 19H, Blood Urea Nitrogen 45H, Creatinine 1.3H, Estimat Glomerular Filtration Rate , Glucose Level 136H, Lactic Acid Level 3.40H, Calcium Level 9.9 , Total Bilirubin 1.3H, Direct Bilirubin 0.2, Aspartate Amino Transf (AST/SGOT) 24, Alanine Aminotransferase (ALT/SGPT) 18, Alkaline Phosphatase 94, Total Creatine Kinase 56, Creatine Kinase MB 1.6, Creatine Kinase MB Relative Index 2.8, Troponin I 0.52*H, Pro-B-Type Natriuretic Peptide [id number], Total Protein 8.0 , Albumin 4.4, Globulin 3.6, Albumin/Globulin Ratio 1.2 03/28/17 15:25: Lactic Acid Level 2.10 03/28/17 16:00: Urine Color Red, Urine Appearance Slightly cloudy, Urine pH 5, Urine Specific [place] 1.025, Urine Protein 3+H, Urine Glucose (UA) Negative, Urine Ketones 1+H , Urine Occult Blood 5+H, Urine Nitrite Negative, Urine Bilirubin Negative, Urine Urobilinogen Normal, Urine Leukocyte Esterase 1+H, Urine RBC 60-80H, Urine WBC 10-15H, Urine Squamous Epithelial Cells None, Urine Amorphous Sediment FewH, Urine Bacteria ManyH 03/28/17 21:50: Lactic Acid Level 1.50, Troponin I < 0.30 03/28/17 23:00: Prothrombin Time 14.0H, Prothromb Time International Ratio 1.3H 03/29/17 04:30: White Blood Count 9.2, Red Blood Count 4.06L, Hemoglobin 12.7L, Hematocrit 39.0L , Mean Corpuscular Volume 96, Mean Corpuscular Hemoglobin 31.2H, Mean Corpuscular Hemoglobin Concent 32.6, Red Cell Distribution Width 15.6H, Platelet Count 173, Mean Platelet Volume 5.9L, Neutrophils (%) (Auto) 72.6, Lymphocytes (%) (Auto) 25.8, Monocytes (%) (Auto) 1.5, Eosinophils (%) (Auto) 0.0, Basophils (%) (Auto) 0.2, Sodium Level 146H, Potassium Level 4.4, Chloride Level 111H, Carbon Dioxide Level 23, Anion Gap 12, Blood Urea Nitrogen 46H, Creatinine 1.0, Estimat Glomerular Filtration Rate , Glucose Level 166H, Calcium Level 8.7, Magnesium Level 2.3, Troponin I < 0.30 Height (Feet): 5 Height (Inches): 6.00 Weight (Pounds): 133 Objective CV IRR/IRR Lungs CTA Abd SNT + E No CCE VELIA RESENDIZ Mar 29, 2017 12:23
[2017-03-29 12:38] LABS: ABG ALLEN TEST POSITIVE; ABG BASE EXCESS -1.2; ABG PCO2 42.6 mmHg (35.0-45.0)
--- NOTE | 2017-03-29 12:38 | Consultation ---
Consult Note Consult Note HISTORY OF PRESENT ILLNESS: 81-year-old male patient, who is a resident of [facility]. Patient presented with acute shortness of breath and admitted to ICU with respiratory failure. The patient with recent admission to SNF. Patient unable to give any history. Patient admitted for sepsis and pneumonia and required antibiotics and oxygen. Patient care discussed in detail. I was asked to evaluate and recommend further. PAST MEDICAL HISTORY: 1. Status post CVA. 2. Chronic atrial fibrillation. 3. Hypokalemia. 4. COPD. [facility] MEDICATIONS: REVIEWED AND RECONCILED ALLERGIES: No known drug allergies. FAMILY HISTORY: noted SOCIAL HISTORY: He lives in skilled nursing. nonsmoker; debilitated REVIEW OF SYSTEMS: Unable to obtain PHYSICAL EXAMINATION: GENERAL: This is an elderly male chronically ill VITAL SIGNS: 118/80 89 98.4 14 HEENT: Head is normocephalic and atraumatic. Pupils are equal, round, and reactive to light and accommodation. NECK: Supple. Trachea midline. There was no lymphadenopathy or thyromegaly. LUNGS: scattered rhonchi with reduced air entry HEART: RR and irregularly irregular. ABDOMEN: Bowel sounds were active. He has a Sandoval catheter inserted in lieu of the G-tube. EXTREMITIES: No clubbing, cyanosis, or edema. He has advanced muscle wasting. NEUROLOGICAL: poor LOC nonfocal LABORATORY AND ANCILLARY DATA: Labs Test 03/28/17 13:25 03/28/17 15:25 03/28/17 16:00 03/28/17 21:50 White Blood Count 10.9 K/UL (4.8-10.8) Red Blood Count 5.25 M/UL (4.70-6.10) Hemoglobin 16.0 G/DL (14.2-18.0) Hematocrit 50.5 % (42.0-52.0) Mean Corpuscular Volume 96 FL (80-99) Mean Corpuscular Hemoglobin 30.5 PG (27.0-31.0) Mean Corpuscular Hemoglobin Concent 31.8 G/DL (32.0-36.0) Red Cell Distribution Width 15.9 % (11.6-14.8) Platelet Count 212 K/UL (150-450) Mean Platelet Volume 5.4 FL (6.5-10.1) Neutrophils (%) (Auto) % (45.0-75.0) Lymphocytes (%) (Auto) % (20.0-45.0) Monocytes (%) (Auto) % (1.0-10.0) Eosinophils (%) (Auto) % (0.0-3.0) Basophils (%) (Auto) % (0.0-2.0) Differential Total Cells Counted 100 Neutrophils % (Manual) 77 % (45-75) Lymphocytes % (Manual) 15 % (20-45) Monocytes % (Manual) 8 % (1-10) Eosinophils % (Manual) 0 % (0-3) Basophils % (Manual) 0 % (0-2) Band Neutrophils 0 % (0-8) Platelet Estimate Adequate Platelet Morphology Normal Anisocytosis 1+ Stomatocytes 1+ Sodium Level 145 mEQ/L (135-145) Potassium Level 5.6 mEQ/L (3.4-4.9) Chloride Level 105 mEQ/L (98-107) Carbon Dioxide Level 21 mEQ/L (20-30) Anion Gap 19 (5-15) Blood Urea Nitrogen 45 mg/dL (7-23) Creatinine 1.3 mg/dL (0.7-1.2) Estimat Glomerular Filtration Rate mL/min (>60) Glucose Level 136 mg/dL (74-106) Lactic Acid Level 3.40 mmol/L (0.66-2.22) 2.10 mmol/L (0.66-2.22) 1.50 mmol/L (0.66-2.22) Calcium Level 9.9 mg/dL (8.6-10.2) Total Bilirubin 1.3 mg/dL (0.0-1.2) Direct Bilirubin 0.2 mg/dL (0.1-0.3) Aspartate Amino Transf (AST/SGOT) 24 U/L (5-40) Alanine Aminotransferase (ALT/SGPT) 18 U/L (3-41) Alkaline Phosphatase 94 U/L (40-129) Total Creatine Kinase 56 U/L (38-174) Creatine Kinase MB 1.6 ng/mL (< 6.7) Creatine Kinase MB Relative Index 2.8 Troponin I 0.52 ng/mL (<=0.30) < 0.30 ng/mL (<=0.30) Pro-B-Type Natriuretic Peptide 39484 pg/mL (0-450) Total Protein 8.0 g/dL (6.6-8.7) Albumin 4.4 g/dL (3.5-5.2) Globulin 3.6 g/dL Albumin/Globulin Ratio 1.2 (1.0-2.7) Urine Color Red Urine Appearance Slightly cloudy Urine pH 5 (4.5-8.0) Urine Specific [place] 1.025 (1.005-1.035) Urine Protein 3+ (NEGATIVE) Urine Glucose (UA) Negative (NEGATIVE) Urine Ketones 1+ (NEGATIVE) Urine Occult Blood 5+ (NEGATIVE) Urine Nitrite Negative (NEGATIVE) Urine Bilirubin Negative (NEGATIVE) Urine Urobilinogen Normal MG/DL (0.0-1.0) Urine Leukocyte Esterase 1+ (NEGATIVE) Urine RBC 60-80 /HPF (0 - 0) Urine WBC 10-15 /HPF (0 - 0) Urine Squamous Epithelial Cells None /LPF (NONE/OCC) Urine Amorphous Sediment Few /LPF (NONE) Urine Bacteria Many /HPF (NONE) Test 03/28/17 23:00 03/29/17 04:30 Prothrombin Time 14.0 SEC (9.30-11.50) Prothromb Time International Ratio 1.3 (0.9-1.1) White Blood Count 9.2 K/UL (4.8-10.8) Red Blood Count 4.06 M/UL (4.70-6.10) Hemoglobin 12.7 G/DL (14.2-18.0) Hematocrit 39.0 % (42.0-52.0) Mean Corpuscular Volume 96 FL (80-99) Mean Corpuscular Hemoglobin 31.2 PG (27.0-31.0) Mean Corpuscular Hemoglobin Concent 32.6 G/DL (32.0-36.0) Red Cell Distribution Width 15.6 % (11.6-14.8) Platelet Count 173 K/UL (150-450) Mean Platelet Volume 5.9 FL (6.5-10.1) Neutrophils (%) (Auto) 72.6 % (45.0-75.0) Lymphocytes (%) (Auto) 25.8 % (20.0-45.0) Monocytes (%) (Auto) 1.5 % (1.0-10.0) Eosinophils (%) (Auto) 0.0 % (0.0-3.0) Basophils (%) (Auto) 0.2 % (0.0-2.0) Sodium Level 146 mEQ/L (135-145) Potassium Level 4.4 mEQ/L (3.4-4.9) Chloride Level 111 mEQ/L (98-107) Carbon Dioxide Level 23 mEQ/L (20-30) Anion Gap 12 (5-15) Blood Urea Nitrogen 46 mg/dL (7-23) Creatinine 1.0 mg/dL (0.7-1.2) Estimat Glomerular Filtration Rate mL/min (>60) Glucose Level 166 mg/dL (74-106) Calcium Level 8.7 mg/dL (8.6-10.2) Magnesium Level 2.3 mg/dL (1.7-2.5) Troponin I < 0.30 ng/mL (<=0.30) ASSESSMENT: 1. Probable pneumonia aspiration. 2. Sepsis syndrome. 3. Significant hypoxemia 4. Chronic atrial fibrillation. 5. Respiratory insufficiency 6. Chronic obstructive pulmonary disease. 7. acute renal insufficiency 8. Hypernatremia PLAN: 1. Admit to intensive care unit. 2. Intravenous antibiotics. 3. titrate oxygen 4. Continue Coumadin per pharmacy protocol. 5. obtain chest Xray and ABG 6. obtain Venous US impression, plan, and exam edited and reviewed in detail care discussed with WEN. FAY LLANOS Mar 29, 2017 12:38
--- NOTE | 2017-03-29 15:04 | Diagnostic Imaging Report ---
Indications: Percutaneous gastrostomy tube placement Technique: Portable AP view of the abdomen with administration of water soluble contrast through gastrostomy tube Findings: Comparison: None Percutaneous gastrostomy tube is present in the stomach. Injected contrast opacifies lumens of the tube, stomach both proximal and distal to the tube, and proximal small bowel. All are normal in caliber. No extraluminal contrast extravasation is demonstrated. Abdomen and pelvis incompletely imaged. Visualized portions of bowel gas pattern unremarkable. Degenerative changes and scoliosis are present in the lumbar spine. IMPRESSION: Percutaneous gastrostomy tube in stomach. No evidence of obstruction or extravasation. No other evidence of acute abdominopelvic disease, with limitation as described. Chronic changes as described.
[2017-03-29] MEDS: Famotidine 20 MG/ 2ML VIAL IVP SCH ×2 (15:19→21:42)
[2017-03-29 15:20] LABS: TROPONIN I < 0.30 ng/mL (<=0.30)
--- NOTE | 2017-03-29 15:20 | GI Initial Consult Note ---
History of Present Illness General Date patient seen: Mar 29, 2017 Time patient seen: 15:13 Reason for Hospitalization: Dyspnea/Respdistress Referring physician: VELIA HULL Reason for Consultation: GT REPLACEMENT Present Illness HPI 81YOM BIBEMS from SNF for cough, fever from [facility] Supposedly pulled out Gtube, Pierce was placed in its place to hold open stoma History of Atrial Fib with Rvr- unsure if took Cardizem today On Coumadin Not contributing to HPI All info from patient record, chart GI consult. HPI as noted. GI consulted for GT replacement. ROS limited, patient seen on floor with daughter bedside. NAD with no active s/sx of N/V/D. Per report GT needs to be replaced, pierce noted at site at this time. Patient presents today with mild anemia, elevated troponin levels and elevated lactic acid levels. Unknown history of endoscopic procedures. Home Meds Reported Medications Warfarin Sod* (COUMADIN*) 4 Mg Tablet, 4 MG GT DAILY, TAB 03/28/17 Lactose-Reduced Food/Fiber (Jevity 1.5 Jamaal Liquid) 237 Ml Liquid, 1000 ML GT, ML 03/28/17 Metoclopramide Hcl* (REGLAN*) 10 Mg Tablet, 10 MG GT Q8HR, TAB 03/28/17 Acetaminophen* (ACETAMINOPHEN*) 160 Mg/5 Ml Liquid, 320 MG GT Q4HR Y for Mild Pain/Temp > 100.5, ML 03/28/17 Pantoprazole Sodium (Protonix) 40 Mg Granpkt.dr, 20 MG GT EVERY 6 HOURS, PKT 03/28/17 Diltiazem Hcl* (CARDIZEM*) 60 Mg Tablet, 60 MG GT EVERY 6 HOURS, TAB 03/28/17 Albuterol Sulfate* (ALBUTEROL SULFATE HHN*) 2.5 Mg/3 Ml Vial.neb, 3 ML INH Q6H Y for Shortness of Breath, #30 EA 0 Refills 03/28/17 Med list reviewed/reconciled: Yes Allergies: Coded Allergies: No Known Allergies (Unverified , 03/28/17) Patient History Limited by: medical condition History Provided By: Family Member PMH Narrative Past Medical History: AFib, psych hx, other - PNA Past Surgical History: unable to obtain Pertinent Family History: unable to obtain Social History: Denies: alcohol use, drug use, smoking Immunizations: UTD Reviewed Nursing Documentation: PMH: Agreed, PSxH: Agreed Nursing Documentation-PMH Hx Cardiac Problems: Yes Hx Hypertension: Yes Hx Pacemaker: No Hx Asthma: No Hx Diabetes: No Hx Cancer: No Hx Dialysis: No History Of Psychiatric Problem: Yes Review of Systems All Other Systems: limited Physical Exam Vital Signs Date Time Temp Pulse Resp B/P Pulse Ox O2 Delivery O2 Flow Rate FiO2 03/28/17 13:12 104.2 116 26 130/90 94 Non-Rebreather 03/28/17 13:20 8.0 03/28/17 19:00 35 Sp02 EP Interpretation: reviewed Labs Laboratory Tests Test 03/28/17 15:25 03/28/17 16:00 03/28/17 21:50 03/28/17 23:00 Lactic Acid Level 2.10 mmol/L (0.66-2.22) 1.50 mmol/L (0.66-2.22) Urine Color Red Urine Appearance Slightly cloudy Urine pH 5 (4.5-8.0) Urine Specific [place] 1.025 (1.005-1.035) Urine Protein 3+ (NEGATIVE) H Urine Glucose (UA) Negative (NEGATIVE) Urine Ketones 1+ (NEGATIVE) H Urine Occult Blood 5+ (NEGATIVE) H Urine Nitrite Negative (NEGATIVE) Urine Bilirubin Negative (NEGATIVE) Urine Urobilinogen Normal MG/DL (0.0-1.0) Urine Leukocyte Esterase 1+ (NEGATIVE) H Urine RBC 60-80 /HPF (0 - 0) H Urine WBC 10-15 /HPF (0 - 0) H Urine Squamous Epithelial Cells None /LPF (NONE/OCC) Urine Amorphous Sediment Few /LPF (NONE) H Urine Bacteria Many /HPF (NONE) H Troponin I < 0.30 ng/mL (<=0.30) Prothrombin Time 14.0 SEC (9.30-11.50) H Prothromb Time International Ratio 1.3 (0.9-1.1) H Test 03/29/17 04:30 03/29/17 12:25 03/29/17 14:07 White Blood Count 9.2 K/UL (4.8-10.8) Red Blood Count 4.06 M/UL (4.70-6.10) L Hemoglobin 12.7 G/DL (14.2-18.0) L Hematocrit 39.0 % (42.0-52.0) L Mean Corpuscular Volume 96 FL (80-99) Mean Corpuscular Hemoglobin 31.2 PG (27.0-31.0) H Mean Corpuscular Hemoglobin Concent 32.6 G/DL (32.0-36.0) Red Cell Distribution Width 15.6 % (11.6-14.8) H Platelet Count 173 K/UL (150-450) Mean Platelet Volume 5.9 FL (6.5-10.1) L Neutrophils (%) (Auto) 72.6 % (45.0-75.0) Lymphocytes (%) (Auto) 25.8 % (20.0-45.0) Monocytes (%) (Auto) 1.5 % (1.0-10.0) Eosinophils (%) (Auto) 0.0 % (0.0-3.0) Basophils (%) (Auto) 0.2 % (0.0-2.0) Sodium Level 146 mEQ/L (135-145) H Potassium Level 4.4 mEQ/L (3.4-4.9) Chloride Level 111 mEQ/L (98-107) H Carbon Dioxide Level 23 mEQ/L (20-30) Anion Gap 12 (5-15) Blood Urea Nitrogen 46 mg/dL (7-23) H Creatinine 1.0 mg/dL (0.7-1.2) Estimat Glomerular Filtration Rate mL/min (>60) Glucose Level 166 mg/dL (74-106) H Calcium Level 8.7 mg/dL (8.6-10.2) Magnesium Level 2.3 mg/dL (1.7-2.5) Troponin I < 0.30 ng/mL (<=0.30) Pending Pro-B-Type Natriuretic Peptide 9240 pg/mL (0-450) H Arterial Blood pH 7.371 (7.350-7.450) Arterial Blood Partial Pressure CO2 42.6 mmHg (35.0-45.0) Arterial Blood Partial Pressure O2 106.6 mmHg (75.0-100.0) H Arterial Blood HCO3 24.1 mmol/L (22.0-26.0) Arterial Blood Oxygen Saturation 96.4 % (92.0-98.0) Arterial Blood Base Excess -1.2 Robert Test Positive General Appearance: no apparent distress Head: normocephalic EENT: normal ENT inspection Neck: full range of motion, supple Respiratory: other - mech vent Cardiovascular: normal rate Gastrointestinal: gt - changed to 20 FR Current Medications Current Medications Medications (Trade) Dose Ordered Sig/Angel Route PRN Reason Start Time Stop Time Status Last Admin Dose Admin Acetaminophen (Tylenol) 650 mg Q4H PRN GT Mild Pain/Temp > 100.5 03/29/17 11:00 04/28/17 10:59 Albuterol/ Ipratropium (DuoNeb 0.5-3(2.5)mg/3ml) 3 ml 5x DAILYPRN PRN HHN Shortness of Breath 03/28/17 14:30 04/02/17 14:29 Clotrimazole (Lotrimin) 1 applic TWICE A DAY TOPIC 03/28/17 18:00 04/27/17 17:59 03/29/17 08:57 Dextrose STAT PRN IV Hypoglycemia 03/28/17 14:30 04/27/17 14:29 Diltiazem HCl/ Dextrose (Cardizem/D5W) 125 ml @ 0 mls/hr Q24H IV 03/28/17 19:00 03/29/17 18:59 03/29/17 09:43 Famotidine (Pepcid I.v.) 20 mg Q12HR IVP 03/29/17 15:00 04/28/17 14:59 Methylprednisolone Sodium Succinate (Solu-MEDROL) 40 mg EVERY 6 HOURS IVP 03/28/17 17:00 04/27/17 16:59 03/29/17 12:13 Ondansetron HCl (Zofran) 4 mg Q6H PRN IVP Nausea & Vomiting 03/28/17 14:30 04/27/17 14:29 Piperacillin Sod/ Tazobactam Sod/ Dextrose (Zosyn/D5W) 110 ml @ 27.5 mls/hr EVERY 8 HOURS IVPB 03/28/17 22:00 04/02/17 21:59 03/29/17 14:25 Sodium Chloride (0.45% NS 1000ml) 1,000 ml @ 50 mls/hr Q20H IV 03/28/17 17:00 04/27/17 16:59 03/29/17 13:13 Vancomycin HCl 750 mg/Dextrose 275 ml @ 183.708 mls/hr Q24H IVPB 03/29/17 18:00 04/03/17 17:59 Vancomycin HCl 1 ea 1 ea DAILY PRN MISC PRN RX PROTOCOL 03/28/17 16:30 04/27/17 16:29 GI: Plan Problems: (1) PEG (percutaneous endoscopic gastrostomy) adjustment/replacement/removal (2) Anemia (3) G tube feedings Plan GT replaced with 20 fr >> KUB confirmed, okay to use. GTFs per dietary anemia work up OB stool r/o GI bleed ppi fu labs Discussed with Dr. Ayers. Thank you for referring this patient, we will follow. Evy Stephen N.P. Mar 29, 2017 15:20
[2017-03-29] MEDS ORDERED: Vancomycin 750 MG in D5W 275 ML IVPB SCH (18:00)
--- NOTE | 2017-03-29 22:38 | Cardiology Progress Note ---
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 He does not follow commands and there is no evidnece that he can hear or see Objective Last 24 Hour Vital Signs Date Time Temp Pulse Resp B/P Pulse Ox O2 Delivery O2 Flow Rate FiO2 03/29/17 21:36 84 94/68 03/29/17 21:00 87 17 96/64 100 Non-Rebreather 35 03/29/17 20:30 89 14 117/81 98 Non-Rebreather 35 03/29/17 20:00 84 16 113/76 99 Non-Rebreather 35 03/29/17 20:00 84 03/29/17 19:30 Venturi Mask 6.0 35 03/29/17 19:30 104 20 Venturi Mask 6.0 35 03/29/17 19:30 99 Venturi Mask 6.0 35 03/29/17 19:30 98.1 86 18 94/70 100 Non-Rebreather 35 03/29/17 19:00 86 18 115/66 100 Non-Rebreather 35 03/29/17 18:30 84 16 104/74 100 Non-Rebreather 35 03/29/17 18:00 85 18 119/81 100 Non-Rebreather 35 03/29/17 17:30 80 12 116/70 100 Non-Rebreather 35 03/29/17 17:00 84 12 124/71 100 Non-Rebreather 35 03/29/17 16:30 82 12 118/81 100 Non-Rebreather 35 03/29/17 16:00 97.8 86 12 116/75 100 Non-Rebreather 35 03/29/17 16:00 86 03/29/17 15:30 88 12 120/76 100 Non-Rebreather 35 03/29/17 15:00 88 12 132/82 100 Non-Rebreather 35 03/29/17 14:30 89 16 131/91 100 Non-Rebreather 35 03/29/17 14:00 92 16 125/75 100 Non-Rebreather 35 03/29/17 13:30 88 16 128/70 100 Non-Rebreather 35 03/29/17 13:08 92 16 112/68 100 Non-Rebreather 35 03/29/17 12:30 91 16 119/76 100 Non-Rebreather 35 03/29/17 12:02 89 03/29/17 12:01 97.6 89 16 118/80 100 Non-Rebreather 35 03/29/17 11:30 90 16 120/75 100 Non-Rebreather 35 03/29/17 11:10 89 16 118/80 100 Non-Rebreather 35 03/29/17 10:30 86 16 113/75 100 Non-Rebreather 35 03/29/17 10:02 90 16 124/90 100 Non-Rebreather 35 03/29/17 09:43 95 124/90 03/29/17 09:33 92 16 129/90 100 Non-Rebreather 35 03/29/17 09:02 98 15 134/72 100 Non-Rebreather 35 03/29/17 08:30 96 15 128/86 100 Non-Rebreather 35 03/29/17 08:00 97.5 98 15 124/68 100 Non-Rebreather 35 03/29/17 08:00 98 03/29/17 07:22 Venturi Mask 6.0 35 03/29/17 07:21 99 Venturi Mask 6.0 35 03/29/17 07:21 103 20 Venturi Mask 6.0 35 03/29/17 07:00 93 15 123/86 100 Non-Rebreather 35 03/29/17 06:45 100 17 117/81 100 Non-Rebreather 35 03/29/17 06:30 102 15 117/81 100 Non-Rebreather 35 03/29/17 06:15 102 18 115/68 100 Non-Rebreather 35 03/29/17 06:00 101 18 121/90 99 Non-Rebreather 35 03/29/17 05:45 100 16 110/93 99 Non-Rebreather 35 03/29/17 05:30 98 15 111/83 100 Non-Rebreather 35 03/29/17 05:15 100 15 126/69 100 Non-Rebreather 35 03/29/17 05:00 104 17 107/75 99 Non-Rebreather 35 03/29/17 04:45 108 17 107/75 99 Non-Rebreather 35 03/29/17 04:30 102 17 113/80 98 Non-Rebreather 35 03/29/17 04:15 99 18 110/74 99 Non-Rebreather 35 03/29/17 04:00 97.8 100 16 98/70 99 Non-Rebreather 35 03/29/17 04:00 100 03/29/17 03:45 101 18 105/70 99 Non-Rebreather 35 03/29/17 03:30 101 18 111/65 99 Non-Rebreather 35 03/29/17 03:15 100 16 105/80 99 Non-Rebreather 35 03/29/17 03:00 100 17 100/78 99 Non-Rebreather 35 03/29/17 02:45 103 19 101/77 99 Non-Rebreather 35 03/29/17 02:30 102 18 115/73 99 Non-Rebreather 35 03/29/17 02:15 108 21 116/80 98 Non-Rebreather 35 03/29/17 02:00 106 18 106/81 99 Non-Rebreather 35 03/29/17 01:45 109 20 114/82 99 Non-Rebreather 35 03/29/17 01:30 110 21 120/90 99 Non-Rebreather 35 03/29/17 01:15 113 21 123/93 99 Non-Rebreather 35 03/29/17 01:00 109 21 114/73 99 Non-Rebreather 35 03/29/17 00:45 110 22 98/66 98 Non-Rebreather 35 03/29/17 00:30 109 23 118/80 98 Non-Rebreather 35 03/29/17 00:15 111 22 106/78 97 Non-Rebreather 35 03/29/17 00:00 110 03/29/17 00:00 98.4 109 21 106/78 98 Non-Rebreather 35 03/28/17 23:45 110 22 110/72 98 Non-Rebreather 35 03/28/17 23:30 110 22 112/75 100 Non-Rebreather 35 03/28/17 23:15 108 22 97/73 100 Non-Rebreather 35 03/28/17 23:00 110 24 116/68 100 Non-Rebreather 35 03/28/17 22:45 108 23 116/68 100 Non-Rebreather 35 General Appearance: other - comatose EENT: other Neck: normal inspection Rhythm: Afib Cardiovascular: tachycardia, irregularly irregular, other - distant S1 Respiratory/Chest: crackles/rales Abdomen: soft, guarding Extremities: slow capillary refill Intake and Output 03/28/17 03/29/17 19:00 07:00 Intake Total 175 ml 735.0 ml Output Total 300 ml 480 ml Balance -125 ml 255.0 ml IV Total 175 ml 735.0 ml Output Urine Total 300 ml 480 ml # Voids 2 1 Laboratory Tests Test 03/28/17 23:00 03/29/17 04:30 03/29/17 12:25 03/29/17 14:07 Prothrombin Time 14.0 SEC (9.30-11.50) H Prothromb Time International Ratio 1.3 (0.9-1.1) H White Blood Count 9.2 K/UL (4.8-10.8) Red Blood Count 4.06 M/UL (4.70-6.10) L Hemoglobin 12.7 G/DL (14.2-18.0) L Hematocrit 39.0 % (42.0-52.0) L Mean Corpuscular Volume 96 FL (80-99) Mean Corpuscular Hemoglobin 31.2 PG (27.0-31.0) H Mean Corpuscular Hemoglobin Concent 32.6 G/DL (32.0-36.0) Red Cell Distribution Width 15.6 % (11.6-14.8) H Platelet Count 173 K/UL (150-450) Mean Platelet Volume 5.9 FL (6.5-10.1) L Neutrophils (%) (Auto) 72.6 % (45.0-75.0) Lymphocytes (%) (Auto) 25.8 % (20.0-45.0) Monocytes (%) (Auto) 1.5 % (1.0-10.0) Eosinophils (%) (Auto) 0.0 % (0.0-3.0) Basophils (%) (Auto) 0.2 % (0.0-2.0) Sodium Level 146 mEQ/L (135-145) H Potassium Level 4.4 mEQ/L (3.4-4.9) Chloride Level 111 mEQ/L (98-107) H Carbon Dioxide Level 23 mEQ/L (20-30) Anion Gap 12 (5-15) Blood Urea Nitrogen 46 mg/dL (7-23) H Creatinine 1.0 mg/dL (0.7-1.2) Estimat Glomerular Filtration Rate mL/min (>60) Glucose Level 166 mg/dL (74-106) H Calcium Level 8.7 mg/dL (8.6-10.2) Magnesium Level 2.3 mg/dL (1.7-2.5) Troponin I < 0.30 ng/mL (<=0.30) < 0.30 ng/mL (<=0.30) Pro-B-Type Natriuretic Peptide 9240 pg/mL (0-450) H Arterial Blood pH 7.371 (7.350-7.450) Arterial Blood Partial Pressure CO2 42.6 mmHg (35.0-45.0) Arterial Blood Partial Pressure O2 106.6 mmHg (75.0-100.0) H Arterial Blood HCO3 24.1 mmol/L (22.0-26.0) Arterial Blood Oxygen Saturation 96.4 % (92.0-98.0) Arterial Blood Base Excess -1.2 Robert Test Positive Microbiology Date/Time Source Procedure Growth Status 03/28/17 16:00 Urine,Clean Catch Urine Culture - Preliminary NO GROWTH Resulted NOBLE MALDONADO Mar 29, 2017 22:38
[2017-03-30] VITALS (45 sets, daily range): BP systolic 87–143; BP diastolic 54–97
--- NOTE | 2017-03-30 00:45 | Consultation ---
DATE OF CONSULTATION: 03/29/2017 INFECTIOUS DISEASE CONSULTATION CONSULTING PHYSICIAN: Tyrell Parish M.D. ATTENDING PHYSICIAN: Eugene Caraballo M.D. REASON FOR CONSULTATION: Sepsis and UTI. CHIEF COMPLAINT: Sepsis, fever, and leukocytosis. HISTORY OF PRESENT ILLNESS: This is an 81-year-old male, who is currently is in the ICU at [facility]. The patient was noted to be septic. The patient has fevers as high as 104 and altered mental status and SIRS criteria. Initial chest x-ray was negative. However, the patient has elevated respiratory rate. The patient's urinalysis was consistent with urinary tract infection, which had 1+ leukocyte esterase, 10-15 white blood cells, and many bacteria. Final urine culture at this time is pending. The patient was placed on vancomycin and Zosyn. Chest x-ray showed atelectasis only, no focal consolidation upon review. Case discussed with Dr. Caraballo and the patient's son. MAR was noted. Orders were noted. Notes were reviewed. Case was discussed with RN. PAST MEDICAL HISTORY: The patient had a recent history of herpes zoster ophthalmicus of the left eye which seems to have resolved. Upon reviewing records, he is status post full treatment course with acyclovir. Other past medical history includes history of sepsis in the past, pneumonia, weakness, dysphagia, history of cerebrospinal fluid drainage device, hypertension, diabetes, anemia, gastritis, G-tube, feeding tube, dementia, GERD, BPH, asthma, aspiration risk, weakness, . MEDICATIONS: Upon reviewing the MAR, he is on the following medications. He is on vancomycin, acetaminophen, diltiazem, clotrimazole, and methylprednisolone. He is on vancomycin, Zosyn, albuterol, and Zofran. Outside medications were noted and reconciled. ALLERGIES: No known drug allergies. SOCIAL HISTORY: Negative for smoking, alcohol, or drug abuse. FAMILY HISTORY: Noncontributory. No mention of exposure to tuberculosis or cancer. REVIEW OF SYSTEMS: Constitutional: The patient has generalized weakness and fatigue. Came with fevers. No chills. He opens his eyes today more than yesterday when I saw him. He is on a Ventimask. Head And Neck: No obvious head pain or neck pain. Cardiac: No pressures. Gastrointestinal: No nausea, vomiting, or diarrhea. Genitourinary: The patient does have a Sandoval, no rectal tube. Pulmonary: Shortness of breath noted, but no significant secretions or hemoptysis. Skin: No rash. Neurologic: No seizures. He has generalized weakness. He open his eyes . He did came in with fevers. Review of Systems are otherwise limited. PHYSICAL EXAMINATION: GENERAL: The patient is actually overall more alert today than yesterday. VITAL SIGNS: T-max 104.2 degrees and now is 97.6 degrees, pulse rate is 89, respiratory rate 16, saturation 100%, he is on a nonrebreather, blood pressure 118/80, temperature 97.6 degrees, . His FiO2 35%. HEAD AND NECK: Eye exam, no icterus. Oral exam, no thrush. He seems dry. Normocephalic. No obvious facial droop. Left eye shows no evidence of any vesicles or shingles at this time. NECK: No neck stiffness. Supple. HEART: Regular. No gallop or murmur. LUNGS: Clear bilaterally. No rhonchi or rales. ABDOMEN: Soft. Positive bowel sounds. G-tube. No abdominal cellulitis noted. G-tube is covered. SKIN: No rash or dermatitis. MUSCULOSKELETAL: No effusion or contractures. PERIPHERAL VASCULAR: No cyanosis or gangrene. RECTAL: Deferred. GENITOURINARY: Has Sandoval. Urine is cloudy. LINES: Line site is without phlebitis. NEUROLOGIC: Generalized weakness and response. LABORATORY DATA: Laboratory data is as follows: UA had 1+ leukocyte esterase, 10 to 15 white blood cells, many bacteria, 6 to 8 RBCs. Creatinine is 1.0. White count as high as 10.9 and now is 12.7. Cultures are pending at this time. Chest x-ray initially showed no acute disease and atelectasis. ASSESSMENT AND PLAN: 1. The patient has sepsis, fevers, and leukocytosis, questionable urinary tract infection, questionable aspiration, healthcare-acquired pneumonia. Chest x-ray so far is negative. Check final cultures. Continue Zosyn, vancomycin, and IV antibiotics for MRSA gram-negative coverage. Check final workup and cultures. 2. History of diabetes. 3. Hypertension. 4. Weakness. 5. History of sepsis and pneumonia. 6. Dysphagia, Gastrostomy tube and aspiration risk. 7. History of cerebrospinal fluid drainage. 8. Continue treatment for hypertension and diabetes per primary. 9. Anemia. 10. Gastritis. 11. Decreased gait. 12. Altered mental status. 13. Age-related disability. 14. Dementia. 15. Gastroesophageal reflux disease. 16. Benign prostatic hypertrophy. 17. Normal pressure hydrocephalus. 18. Sandoval. 19. Case discussed with Dr. Caraballo. 20. MAR was noted. 21. Case was discussed with RN. 22. Family history is noncontributory. 23. Social history is negative. 24. Orders were noted. 25. Records were reviewed. 26. Continue treatment per primary consultants. 27. Skin care protocol and ICU care. Tyrell Parish M.D. DR: ROSANGELA JOB#: [id number] CC:
--- NOTE | 2017-03-30 02:00 | Consultation ---
DATE OF CONSULTATION: ADDENDUM He does have a history of the hypertension, atrial fibrillation, dementia, history of left eye herpes zoster, cochlear implants, and history of weakness. He does have a history of pneumonia also looks like, but no history of diabetes or normal pressure hydrocephalus or any history of diabetes or any history of, I think, removal of cerebrospinal fluid. He does have history of dementia. Tyrell Parish M.D. DR: URBANO JOB#: [id number] CC:
[2017-03-30 05:42] LABS: BASOPHILS % (AUTO) 0.4 % (0.0-2.0); LYMPHOCYTES % (AUTO) 19.7 % (20.0-45.0); MEAN CORPUSCULAR HEMOGLOBIN 30.6 PG (27.0-31.0); MEAN CORPUSCULAR HGB CONC 32.2 G/DL (32.0-36.0); MEAN CORPUSCULAR VOLUME 95 FL (80-99); MONOCYTES % (AUTO) 1.6 % (1.0-10.0); NEUTROPHILS % (AUTO) 78.4 % (45.0-75.0); PLATELET COUNT 173 K/UL (150-450); RED BLOOD COUNT 3.86 M/UL (4.70-6.10); RED CELL DISTRIBUTION WIDTH 15.2 % (11.6-14.8); WHITE BLOOD COUNT 9.6 K/UL (4.8-10.8)
[2017-03-30] MEDS: Solu-MEDROL 40mg Inj IVP SCH ×4 (06:03→23:29)
[2017-03-30] MEDS: Zoysn 3.37gm in D5W 110ml IVPB SCH ×3 (06:04→21:56)
[2017-03-30 06:18] LABS: TROPONIN I < 0.30 ng/mL (<=0.30)
[2017-03-30 06:20] LABS: FERRITIN 386 ng/mL (10-230); THYROID STIMULATING HORMONE 0.793 uIU/mL (0.300-4.500)
[2017-03-30 06:21] LABS: ANION GAP 12 (5-15); CALCIUM 8.7 mg/dL (8.6-10.2); CARBON DIOXIDE 23 mEQ/L (20-30); CHLORIDE 108 mEQ/L (98-107); CREATININE 0.8 mg/dL (0.7-1.2); HEMOLYSIS 7; POTASSIUM 3.9 mEQ/L (3.4-4.9); SODIUM 143 mEQ/L (135-145)
[2017-03-30] MEDS: Famotidine 20 MG/ 2ML VIAL IVP SCH ×2 (08:46→20:38)
[2017-03-30] MEDS ORDERED: NS 275ml ONE (08:48)
[2017-03-30] MEDS ORDERED: 1/2 NS 1000ml IV ONE (08:48)
--- NOTE | 2017-03-30 09:45 | Critical Care Progress Note ---
Assessment/Plan Assessment/Plan ASSESSMENT: 1. Probable pneumonia aspiration. 2. Sepsis syndrome. 3. Significant hypoxemia 4. Chronic atrial fibrillation. 5. Respiratory insufficiency 6. Chronic obstructive pulmonary disease. 7. acute renal insufficiency 8. Hypernatremia 9. Hypoxemia PLAN: 1. Intensive care unit. 2. Intravenous antibiotics noted and cultures 3. titrate oxygen 4. Continue Coumadin per pharmacy protocol. 5. obtain chest Xray and ABG 6. await Venous US 7. monitor ABG and worsening acidosis medications/laboratory data/nursing notes/ICU care reviewed in detail note reviewed and edited care discussed with RN and RT ICU time spent 35 minutes Critical Care - Subjective Interval Events: in the ICU still on 100% ROS Limited/Unobtainable: Yes Condition: critical EKG Rhythm: Sinus Rhythm I&O: Intake and Output 03/30/17 03/31/17 19:00 07:00 Intake Total 115.0 ml Balance 115.0 ml IV Total 115.0 ml Critical Care - Objective CXR: minimal infiltrates Last 24 Hour Vital Signs Date Time Temp Pulse Resp B/P (MAP) Pulse Ox O2 Delivery O2 Flow Rate FiO2 03/30/17 09:30 76 15 111/87 99 Venturi Mask 30 03/30/17 09:00 88 15 113/86 99 Venturi Mask 30 03/30/17 08:30 76 14 112/79 100 Venturi Mask 30 03/30/17 08:00 70 03/30/17 08:00 84 13 107/54 100 Venturi Mask 30 03/30/17 07:30 97.7 81 14 116/72 100 Venturi Mask 30 03/30/17 07:13 100 Venturi Mask 4.0 30 03/30/17 07:13 75 20 Venturi Mask 4.0 30 03/30/17 07:13 Venturi Mask 4.0 30 03/30/17 07:00 85 12 115/72 100 Venturi Mask 35 03/30/17 06:00 77 13 102/68 100 Non-Rebreather 30 03/30/17 05:30 82 15 108/84 100 Non-Rebreather 30 03/30/17 05:00 82 15 143/73 100 Non-Rebreather 35 03/30/17 04:30 83 17 113/83 100 Non-Rebreather 35 03/30/17 04:00 84 03/30/17 04:00 96.6 84 18 119/78 100 Non-Rebreather 35 03/30/17 03:30 91 12 140/95 100 Non-Rebreather 35 03/30/17 03:00 78 15 107/82 100 Non-Rebreather 35 03/30/17 02:30 78 15 97/75 100 Non-Rebreather 35 03/30/17 02:00 78 16 100/69 100 Non-Rebreather 35 03/30/17 01:30 83 14 107/76 99 Non-Rebreather 35 03/30/17 01:00 83 14 106/79 100 Non-Rebreather 35 03/30/17 00:30 80 18 117/83 100 Non-Rebreather 35 03/30/17 00:00 90 03/30/17 00:00 97.2 90 19 116/97 99 Non-Rebreather 35 03/29/17 23:30 83 16 106/76 100 Non-Rebreather 35 03/29/17 23:00 87 17 116/72 100 Non-Rebreather 35 03/29/17 22:30 86 14 117/68 99 Non-Rebreather 35 03/29/17 22:00 83 15 105/66 100 Non-Rebreather 35 03/29/17 21:36 84 94/68 03/29/17 21:30 82 15 94/68 100 Non-Rebreather 35 03/29/17 21:00 87 17 96/64 100 Non-Rebreather 35 03/29/17 20:30 89 14 117/81 98 Non-Rebreather 35 03/29/17 20:00 84 16 113/76 99 Non-Rebreather 35 03/29/17 20:00 84 03/29/17 19:30 Venturi Mask 6.0 35 03/29/17 19:30 104 20 Venturi Mask 6.0 35 03/29/17 19:30 99 Venturi Mask 6.0 35 03/29/17 19:30 98.1 86 18 94/70 100 Non-Rebreather 35 03/29/17 19:00 86 18 115/66 100 Non-Rebreather 35 03/29/17 18:30 84 16 104/74 100 Non-Rebreather 35 03/29/17 18:00 85 18 119/81 100 Non-Rebreather 35 03/29/17 17:30 80 12 116/70 100 Non-Rebreather 35 03/29/17 17:00 84 12 124/71 100 Non-Rebreather 35 03/29/17 16:30 82 12 118/81 100 Non-Rebreather 35 03/29/17 16:00 97.8 86 12 116/75 100 Non-Rebreather 35 03/29/17 16:00 86 03/29/17 15:30 88 12 120/76 100 Non-Rebreather 35 03/29/17 15:00 88 12 132/82 100 Non-Rebreather 35 03/29/17 14:30 89 16 131/91 100 Non-Rebreather 35 03/29/17 14:00 92 16 125/75 100 Non-Rebreather 35 03/29/17 13:30 88 16 128/70 100 Non-Rebreather 35 03/29/17 13:08 92 16 112/68 100 Non-Rebreather 35 03/29/17 12:30 91 16 119/76 100 Non-Rebreather 35 03/29/17 12:02 89 03/29/17 12:01 97.6 89 16 118/80 100 Non-Rebreather 35 03/29/17 11:30 90 16 120/75 100 Non-Rebreather 35 03/29/17 11:10 89 16 118/80 100 Non-Rebreather 35 03/29/17 10:30 86 16 113/75 100 Non-Rebreather 35 03/29/17 10:02 90 16 124/90 100 Non-Rebreather 35 03/29/17 09:43 95 124/90 Labs: Labs Test 03/28/17 13:25 03/28/17 15:25 03/28/17 16:00 03/28/17 21:50 White Blood Count 10.9 K/UL (4.8-10.8) Red Blood Count 5.25 M/UL (4.70-6.10) Hemoglobin 16.0 G/DL (14.2-18.0) Hematocrit 50.5 % (42.0-52.0) Mean Corpuscular Volume 96 FL (80-99) Mean Corpuscular Hemoglobin 30.5 PG (27.0-31.0) Mean Corpuscular Hemoglobin Concent 31.8 G/DL (32.0-36.0) Red Cell Distribution Width 15.9 % (11.6-14.8) Platelet Count 212 K/UL (150-450) Mean Platelet Volume 5.4 FL (6.5-10.1) Neutrophils (%) (Auto) % (45.0-75.0) Lymphocytes (%) (Auto) % (20.0-45.0) Monocytes (%) (Auto) % (1.0-10.0) Eosinophils (%) (Auto) % (0.0-3.0) Basophils (%) (Auto) % (0.0-2.0) Differential Total Cells Counted 100 Neutrophils % (Manual) 77 % (45-75) Lymphocytes % (Manual) 15 % (20-45) Monocytes % (Manual) 8 % (1-10) Eosinophils % (Manual) 0 % (0-3) Basophils % (Manual) 0 % (0-2) Band Neutrophils 0 % (0-8) Platelet Estimate Adequate Platelet Morphology Normal Anisocytosis 1+ Stomatocytes 1+ Sodium Level 145 mEQ/L (135-145) Potassium Level 5.6 mEQ/L (3.4-4.9) Chloride Level 105 mEQ/L (98-107) Carbon Dioxide Level 21 mEQ/L (20-30) Anion Gap 19 (5-15) Blood Urea Nitrogen 45 mg/dL (7-23) Creatinine 1.3 mg/dL (0.7-1.2) Estimat Glomerular Filtration Rate mL/min (>60) Glucose Level 136 mg/dL (74-106) Lactic Acid Level 3.40 mmol/L (0.66-2.22) 2.10 mmol/L (0.66-2.22) 1.50 mmol/L (0.66-2.22) Calcium Level 9.9 mg/dL (8.6-10.2) Total Bilirubin 1.3 mg/dL (0.0-1.2) Direct Bilirubin 0.2 mg/dL (0.1-0.3) Aspartate Amino Transf (AST/SGOT) 24 U/L (5-40) Alanine Aminotransferase (ALT/SGPT) 18 U/L (3-41) Alkaline Phosphatase 94 U/L (40-129) Total Creatine Kinase 56 U/L (38-174) Creatine Kinase MB 1.6 ng/mL (< 6.7) Creatine Kinase MB Relative Index 2.8 Troponin I 0.52 ng/mL (<=0.30) < 0.30 ng/mL (<=0.30) Pro-B-Type Natriuretic Peptide 45974 pg/mL (0-450) Total Protein 8.0 g/dL (6.6-8.7) Albumin 4.4 g/dL (3.5-5.2) Globulin 3.6 g/dL Albumin/Globulin Ratio 1.2 (1.0-2.7) Urine Color Red Urine Appearance Slightly cloudy Urine pH 5 (4.5-8.0) Urine Specific [place] 1.025 (1.005-1.035) Urine Protein 3+ (NEGATIVE) Urine Glucose (UA) Negative (NEGATIVE) Urine Ketones 1+ (NEGATIVE) Urine Occult Blood 5+ (NEGATIVE) Urine Nitrite Negative (NEGATIVE) Urine Bilirubin Negative (NEGATIVE) Urine Urobilinogen Normal MG/DL (0.0-1.0) Urine Leukocyte Esterase 1+ (NEGATIVE) Urine RBC 60-80 /HPF (0 - 0) Urine WBC 10-15 /HPF (0 - 0) Urine Squamous Epithelial Cells None /LPF (NONE/OCC) Urine Amorphous Sediment Few /LPF (NONE) Urine Bacteria Many /HPF (NONE) Test 03/28/17 23:00 03/29/17 04:30 03/29/17 12:25 03/29/17 14:07 Prothrombin Time 14.0 SEC (9.30-11.50) Prothromb Time International Ratio 1.3 (0.9-1.1) White Blood Count 9.2 K/UL (4.8-10.8) Red Blood Count 4.06 M/UL (4.70-6.10) Hemoglobin 12.7 G/DL (14.2-18.0) Hematocrit 39.0 % (42.0-52.0) Mean Corpuscular Volume 96 FL (80-99) Mean Corpuscular Hemoglobin 31.2 PG (27.0-31.0) Mean Corpuscular Hemoglobin Concent 32.6 G/DL (32.0-36.0) Red Cell Distribution Width 15.6 % (11.6-14.8) Platelet Count 173 K/UL (150-450) Mean Platelet Volume 5.9 FL (6.5-10.1) Neutrophils (%) (Auto) 72.6 % (45.0-75.0) Lymphocytes (%) (Auto) 25.8 % (20.0-45.0) Monocytes (%) (Auto) 1.5 % (1.0-10.0) Eosinophils (%) (Auto) 0.0 % (0.0-3.0) Basophils (%) (Auto) 0.2 % (0.0-2.0) Sodium Level 146 mEQ/L (135-145) Potassium Level 4.4 mEQ/L (3.4-4.9) Chloride Level 111 mEQ/L (98-107) Carbon Dioxide Level 23 mEQ/L (20-30) Anion Gap 12 (5-15) Blood Urea Nitrogen 46 mg/dL (7-23) Creatinine 1.0 mg/dL (0.7-1.2) Estimat Glomerular Filtration Rate mL/min (>60) Glucose Level 166 mg/dL (74-106) Calcium Level 8.7 mg/dL (8.6-10.2) Magnesium Level 2.3 mg/dL (1.7-2.5) Troponin I < 0.30 ng/mL (<=0.30) < 0.30 ng/mL (<=0.30) Pro-B-Type Natriuretic Peptide 9240 pg/mL (0-450) Arterial Blood pH 7.371 (7.350-7.450) Arterial Blood Partial Pressure CO2 42.6 mmHg (35.0-45.0) Arterial Blood Partial Pressure O2 106.6 mmHg (75.0-100.0) Arterial Blood HCO3 24.1 mmol/L (22.0-26.0) Arterial Blood Oxygen Saturation 96.4 % (92.0-98.0) Arterial Blood Base Excess -1.2 Roebrt Test Positive Test 03/30/17 04:30 03/30/17 05:00 White Blood Count 9.6 K/UL (4.8-10.8) Red Blood Count 3.86 M/UL (4.70-6.10) Hemoglobin 11.8 G/DL (14.2-18.0) Hematocrit 36.6 % (42.0-52.0) Mean Corpuscular Volume 95 FL (80-99) Mean Corpuscular Hemoglobin 30.6 PG (27.0-31.0) Mean Corpuscular Hemoglobin Concent 32.2 G/DL (32.0-36.0) Red Cell Distribution Width 15.2 % (11.6-14.8) Platelet Count 173 K/UL (150-450) Mean Platelet Volume 6.0 FL (6.5-10.1) Neutrophils (%) (Auto) 78.4 % (45.0-75.0) Lymphocytes (%) (Auto) 19.7 % (20.0-45.0) Monocytes (%) (Auto) 1.6 % (1.0-10.0) Eosinophils (%) (Auto) 0.0 % (0.0-3.0) Basophils (%) (Auto) 0.4 % (0.0-2.0) Sodium Level 143 mEQ/L (135-145) Potassium Level 3.9 mEQ/L (3.4-4.9) Chloride Level 108 mEQ/L (98-107) Carbon Dioxide Level 23 mEQ/L (20-30) Anion Gap 12 (5-15) Blood Urea Nitrogen 40 mg/dL (7-23) Creatinine 0.8 mg/dL (0.7-1.2) Estimat Glomerular Filtration Rate mL/min (>60) Glucose Level 157 mg/dL (74-106) Calcium Level 8.7 mg/dL (8.6-10.2) Iron Level 102 ug/dL (59-158) Total Iron Binding Capacity 210 ug/dL (250-400) Percent Iron Saturation 49 % (15-50) Unsaturated Iron Binding 108 ug/dL (112-346) Ferritin 386 ng/mL (10-230) Troponin I < 0.30 ng/mL (<=0.30) Carcinoembryonic Antigen 4.4 ng/mL Vitamin B12 Level 1499 pg/mL (211-946) Thyroid Stimulating Hormone (TSH) 0.793 uIU/mL (0.300-4.500) Free Thyroxine 1.39 ng/dL (0.86-1.85) Stool Occult Blood Positive (NEGATIVE) Objective: WDWN NAD reduced LOC clear breath sounds bilaterally with minimal rhonchi [id number] without MRG NABS nontender no HSM no CCE nonfocal weak overall on oxygen Micro: Microbiology Date/Time Source Procedure Growth Status 03/28/17 13:47 Blood Blood Culture - Preliminary NO GROWTH AFTER 24 HOURS Resulted 03/28/17 13:25 Blood Blood Culture - Preliminary NO GROWTH AFTER 24 HOURS Resulted 03/28/17 16:00 Urine,Clean Catch Urine Culture - Preliminary Mixed Urogenital Contaminants Resulted 03/28/17 16:05 Rectum VRE Culture - Final NO VANCOMYCIN RESISTANT ENTEROCOCCUS ... Complete FAY LLANOS Mar 30, 2017 09:45
--- NOTE | 2017-03-30 12:06 | General Progress Note ---
Assessment/Plan Assessment/Plan Aspiration Pneumonia + Sepsis -improving. Rapid A. Fib. - improving DW pt's son + ID OK for Tele Subjective Allergies: Coded Allergies: No Known Allergies (Unverified , 03/28/17) Subjective More alert. Objective Last 24 Hour Vital Signs Date Time Temp Pulse Resp B/P (MAP) Pulse Ox O2 Delivery O2 Flow Rate FiO2 03/30/17 12:00 72 03/30/17 12:00 98.1 72 14 112/73 15 Venturi Mask 30 03/30/17 11:30 89 18 112/73 100 Nasal Cannula 2.0 03/30/17 11:00 70 13 114/80 98 Nasal Cannula 2.0 03/30/17 10:30 74 15 116/81 99 Nasal Cannula 2.0 03/30/17 10:00 70 15 118/81 99 Venturi Mask 30 03/30/17 09:30 76 15 111/87 99 Venturi Mask 30 03/30/17 09:00 88 15 113/86 99 Venturi Mask 30 03/30/17 08:30 76 14 112/79 100 Venturi Mask 30 03/30/17 08:00 70 03/30/17 08:00 84 13 107/54 100 Venturi Mask 30 03/30/17 07:30 97.7 81 14 116/72 100 Venturi Mask 30 03/30/17 07:13 100 Venturi Mask 4.0 30 03/30/17 07:13 75 20 Venturi Mask 4.0 30 03/30/17 07:13 Venturi Mask 4.0 30 03/30/17 07:00 85 12 115/72 100 Venturi Mask 35 03/30/17 06:00 77 13 102/68 100 Non-Rebreather 30 03/30/17 05:30 82 15 108/84 100 Non-Rebreather 30 03/30/17 05:00 82 15 143/73 100 Non-Rebreather 35 03/30/17 04:30 83 17 113/83 100 Non-Rebreather 35 03/30/17 04:00 84 03/30/17 04:00 96.6 84 18 119/78 100 Non-Rebreather 35 03/30/17 03:30 91 12 140/95 100 Non-Rebreather 35 03/30/17 03:00 78 15 107/82 100 Non-Rebreather 35 03/30/17 02:30 78 15 97/75 100 Non-Rebreather 35 03/30/17 02:00 78 16 100/69 100 Non-Rebreather 35 03/30/17 01:30 83 14 107/76 99 Non-Rebreather 35 03/30/17 01:00 83 14 106/79 100 Non-Rebreather 35 03/30/17 00:30 80 18 117/83 100 Non-Rebreather 35 03/30/17 00:00 90 03/30/17 00:00 97.2 90 19 116/97 99 Non-Rebreather 35 03/29/17 23:30 83 16 106/76 100 Non-Rebreather 35 03/29/17 23:00 87 17 116/72 100 Non-Rebreather 35 03/29/17 22:30 86 14 117/68 99 Non-Rebreather 35 03/29/17 22:00 83 15 105/66 100 Non-Rebreather 35 03/29/17 21:36 84 94/68 03/29/17 21:30 82 15 94/68 100 Non-Rebreather 35 03/29/17 21:00 87 17 96/64 100 Non-Rebreather 35 03/29/17 20:30 89 14 117/81 98 Non-Rebreather 35 03/29/17 20:00 84 16 113/76 99 Non-Rebreather 35 03/29/17 20:00 84 03/29/17 19:30 Venturi Mask 6.0 35 03/29/17 19:30 104 20 Venturi Mask 6.0 35 03/29/17 19:30 99 Venturi Mask 6.0 35 03/29/17 19:30 98.1 86 18 94/70 100 Non-Rebreather 35 03/29/17 19:00 86 18 115/66 100 Non-Rebreather 35 03/29/17 18:30 84 16 104/74 100 Non-Rebreather 35 03/29/17 18:00 85 18 119/81 100 Non-Rebreather 35 03/29/17 17:30 80 12 116/70 100 Non-Rebreather 35 03/29/17 17:00 84 12 124/71 100 Non-Rebreather 35 03/29/17 16:30 82 12 118/81 100 Non-Rebreather 35 03/29/17 16:00 97.8 86 12 116/75 100 Non-Rebreather 35 03/29/17 16:00 86 03/29/17 15:30 88 12 120/76 100 Non-Rebreather 35 03/29/17 15:00 88 12 132/82 100 Non-Rebreather 35 03/29/17 14:30 89 16 131/91 100 Non-Rebreather 35 03/29/17 14:00 92 16 125/75 100 Non-Rebreather 35 03/29/17 13:30 88 16 128/70 100 Non-Rebreather 35 03/29/17 13:08 92 16 112/68 100 Non-Rebreather 35 03/29/17 12:30 91 16 119/76 100 Non-Rebreather 35 Intake and Output 03/30/17 03/31/17 19:00 07:00 Intake Total 115.0 ml Output Total 80 ml Balance 35.0 ml IV Total 115.0 ml Output Urine Total 80 ml Laboratory Tests 03/29/17 12:25: Arterial Blood pH 7.371, Arterial Blood Partial Pressure CO2 42.6, Arterial Blood Partial Pressure O2 106.6H, Arterial Blood HCO3 24.1, Arterial Blood Oxygen Saturation 96.4, Arterial Blood Base Excess -1.2, Robert Test Positive 03/29/17 14:07: Troponin I < 0.30 03/30/17 04:30: Troponin I < 0.30, White Blood Count 9.6, Red Blood Count 3.86L, Hemoglobin 11.8L, Hematocrit 36.6L, Mean Corpuscular Volume 95, Mean Corpuscular Hemoglobin 30.6, Mean Corpuscular Hemoglobin Concent 32.2, Red Cell Distribution Width 15.2H, Platelet Count 173, Mean Platelet Volume 6.0L, Neutrophils (%) (Auto) 78.4H, Lymphocytes (%) (Auto) 19.7L, Monocytes (%) (Auto ) 1.6, Eosinophils (%) (Auto) 0.0, Basophils (%) (Auto) 0.4, Reticulocyte Count 2.4H, Sodium Level 143, Potassium Level 3.9, Chloride Level 108H, Carbon Dioxide Level 23, Anion Gap 12, Blood Urea Nitrogen 40H, Creatinine 0.8, Estimat Glomerular Filtration Rate , Glucose Level 157H, Calcium Level 8.7, Iron Level 102, Total Iron Binding Capacity 210L, Percent Iron Saturation 49, Unsaturated Iron Binding 108L, Ferritin 386H, Carcinoembryonic Antigen 4.4H, Vitamin B12 Level 1499H, Folate [Pending], Thyroid Stimulating Hormone (TSH) 0.793, Free Thyroxine 1.39 03/30/17 05:00: Stool Occult Blood Positive Height (Feet): 5 Height (Inches): 6.00 Weight (Pounds): 134 Objective CV IRR/IRR Lungs CTA Abd SNT + E No CCE VELIA RESENDIZ Mar 30, 2017 12:06
--- NOTE | 2017-03-30 12:12 | GI Progress Note ---
Assessment/Plan Problems: (1) G tube feedings ICD Codes: Z93.1 - Gastrostomy status SNOMED: 207762838, 386921306 (2) PEG (percutaneous endoscopic gastrostomy) adjustment/replacement/removal ICD Codes: Z43.1 - Encounter for attention to gastrostomy SNOMED: 933743562, 245272924 (3) Anemia ICD Codes: D64.9 - Anemia, unspecified SNOMED: 192106837 Status: unchanged Status Narrative Discussed with Dr. Ayers. Assessment/Plan OB stool positive GT replaced with 20 fr >> KUB confirmed, okay to use. GTFs per dietary monitor H&H, prn transfusions ppi abx fu labs The patient was seen and examined at bedside and all new and available data was reviewed in the patients chart. I agree with the above findings, impression and plan. (Patient seen earlier today. Signature stamp does not reflect patient encounter time.). -Emma Ayers MD Subjective Subjective limited Objective Last 24 Hour Vital Signs Date Time Temp Pulse Resp B/P (MAP) Pulse Ox O2 Delivery O2 Flow Rate FiO2 03/30/17 12:00 72 03/30/17 12:00 98.1 72 14 112/73 15 Venturi Mask 30 03/30/17 11:30 89 18 112/73 100 Nasal Cannula 2.0 03/30/17 11:00 70 13 114/80 98 Nasal Cannula 2.0 03/30/17 10:30 74 15 116/81 99 Nasal Cannula 2.0 03/30/17 10:00 70 15 118/81 99 Venturi Mask 30 03/30/17 09:30 76 15 111/87 99 Venturi Mask 30 03/30/17 09:00 88 15 113/86 99 Venturi Mask 30 03/30/17 08:30 76 14 112/79 100 Venturi Mask 30 03/30/17 08:00 70 03/30/17 08:00 84 13 107/54 100 Venturi Mask 30 03/30/17 07:30 97.7 81 14 116/72 100 Venturi Mask 30 03/30/17 07:13 100 Venturi Mask 4.0 30 03/30/17 07:13 75 20 Venturi Mask 4.0 30 03/30/17 07:13 Venturi Mask 4.0 30 03/30/17 07:00 85 12 115/72 100 Venturi Mask 35 03/30/17 06:00 77 13 102/68 100 Non-Rebreather 30 03/30/17 05:30 82 15 108/84 100 Non-Rebreather 30 03/30/17 05:00 82 15 143/73 100 Non-Rebreather 35 03/30/17 04:30 83 17 113/83 100 Non-Rebreather 35 03/30/17 04:00 84 03/30/17 04:00 96.6 84 18 119/78 100 Non-Rebreather 35 03/30/17 03:30 91 12 140/95 100 Non-Rebreather 35 03/30/17 03:00 78 15 107/82 100 Non-Rebreather 35 03/30/17 02:30 78 15 97/75 100 Non-Rebreather 35 03/30/17 02:00 78 16 100/69 100 Non-Rebreather 35 03/30/17 01:30 83 14 107/76 99 Non-Rebreather 35 03/30/17 01:00 83 14 106/79 100 Non-Rebreather 35 03/30/17 00:30 80 18 117/83 100 Non-Rebreather 35 03/30/17 00:00 90 03/30/17 00:00 97.2 90 19 116/97 99 Non-Rebreather 35 03/29/17 23:30 83 16 106/76 100 Non-Rebreather 35 03/29/17 23:00 87 17 116/72 100 Non-Rebreather 35 03/29/17 22:30 86 14 117/68 99 Non-Rebreather 35 03/29/17 22:00 83 15 105/66 100 Non-Rebreather 35 03/29/17 21:36 84 94/68 03/29/17 21:30 82 15 94/68 100 Non-Rebreather 35 03/29/17 21:00 87 17 96/64 100 Non-Rebreather 35 03/29/17 20:30 89 14 117/81 98 Non-Rebreather 35 03/29/17 20:00 84 16 113/76 99 Non-Rebreather 35 03/29/17 20:00 84 03/29/17 19:30 Venturi Mask 6.0 35 03/29/17 19:30 104 20 Venturi Mask 6.0 35 03/29/17 19:30 99 Venturi Mask 6.0 35 03/29/17 19:30 98.1 86 18 94/70 100 Non-Rebreather 35 03/29/17 19:00 86 18 115/66 100 Non-Rebreather 35 03/29/17 18:30 84 16 104/74 100 Non-Rebreather 35 03/29/17 18:00 85 18 119/81 100 Non-Rebreather 35 03/29/17 17:30 80 12 116/70 100 Non-Rebreather 35 03/29/17 17:00 84 12 124/71 100 Non-Rebreather 35 03/29/17 16:30 82 12 118/81 100 Non-Rebreather 35 03/29/17 16:00 97.8 86 12 116/75 100 Non-Rebreather 35 03/29/17 16:00 86 03/29/17 15:30 88 12 120/76 100 Non-Rebreather 35 03/29/17 15:00 88 12 132/82 100 Non-Rebreather 35 03/29/17 14:30 89 16 131/91 100 Non-Rebreather 35 03/29/17 14:00 92 16 125/75 100 Non-Rebreather 35 03/29/17 13:30 88 16 128/70 100 Non-Rebreather 35 03/29/17 13:08 92 16 112/68 100 Non-Rebreather 35 03/29/17 12:30 91 16 119/76 100 Non-Rebreather 35 Intake and Output 03/30/17 03/31/17 19:00 07:00 Intake Total 115.0 ml Output Total 80 ml Balance 35.0 ml IV Total 115.0 ml Output Urine Total 80 ml Laboratory Tests Test 03/29/17 12:25 03/29/17 14:07 03/30/17 04:30 03/30/17 05:00 Arterial Blood pH 7.371 (7.350-7.450) Arterial Blood Partial Pressure CO2 42.6 mmHg (35.0-45.0) Arterial Blood Partial Pressure O2 106.6 mmHg (75.0-100.0) H Arterial Blood HCO3 24.1 mmol/L (22.0-26.0) Arterial Blood Oxygen Saturation 96.4 % (92.0-98.0) Arterial Blood Base Excess -1.2 Robert Test Positive Troponin I < 0.30 ng/mL (<=0.30) < 0.30 ng/mL (<=0.30) White Blood Count 9.6 K/UL (4.8-10.8) Red Blood Count 3.86 M/UL (4.70-6.10) L Hemoglobin 11.8 G/DL (14.2-18.0) L Hematocrit 36.6 % (42.0-52.0) L Mean Corpuscular Volume 95 FL (80-99) Mean Corpuscular Hemoglobin 30.6 PG (27.0-31.0) Mean Corpuscular Hemoglobin Concent 32.2 G/DL (32.0-36.0) Red Cell Distribution Width 15.2 % (11.6-14.8) H Platelet Count 173 K/UL (150-450) Mean Platelet Volume 6.0 FL (6.5-10.1) L Neutrophils (%) (Auto) 78.4 % (45.0-75.0) H Lymphocytes (%) (Auto) 19.7 % (20.0-45.0) L Monocytes (%) (Auto) 1.6 % (1.0-10.0) Eosinophils (%) (Auto) 0.0 % (0.0-3.0) Basophils (%) (Auto) 0.4 % (0.0-2.0) Reticulocyte Count 2.4 % (0.0-2.0) H Sodium Level 143 mEQ/L (135-145) Potassium Level 3.9 mEQ/L (3.4-4.9) Chloride Level 108 mEQ/L (98-107) H Carbon Dioxide Level 23 mEQ/L (20-30) Anion Gap 12 (5-15) Blood Urea Nitrogen 40 mg/dL (7-23) H Creatinine 0.8 mg/dL (0.7-1.2) Estimat Glomerular Filtration Rate mL/min (>60) Glucose Level 157 mg/dL (74-106) H Calcium Level 8.7 mg/dL (8.6-10.2) Iron Level 102 ug/dL (59-158) Total Iron Binding Capacity 210 ug/dL (250-400) L Percent Iron Saturation 49 % (15-50) Unsaturated Iron Binding 108 ug/dL (112-346) L Ferritin 386 ng/mL (10-230) H Carcinoembryonic Antigen 4.4 ng/mL H Vitamin B12 Level 1499 pg/mL (211-946) H Folate Pending Thyroid Stimulating Hormone (TSH) 0.793 uIU/mL (0.300-4.500) Free Thyroxine 1.39 ng/dL (0.86-1.85) Stool Occult Blood Positive (NEGATIVE) Height (Feet): 5 Height (Inches): 6.00 Weight (Pounds): 134 General Appearance: no apparent distress, alert Cardiovascular: normal rate Respiratory/Chest: normal breath sounds, no respiratory distress Abdominal Exam: GT site - c/d/i Evy Stephen N.P. Mar 30, 2017 12:11 EMMA AYERS Mar 31, 2017 12:05
--- NOTE | 2017-03-30 15:42 | Cardiology Report ---
APPROVED REPORT EKG Measurement Heart [id number] Atrial fibrillation with rapid ventricular response Moderate voltage criteria for LVH, may be normal variant Abnormal ECG
[2017-03-30] MEDS ORDERED: Vancomycin 750mg/NS 250ml IVPB SCH (18:00)
--- NOTE | 2017-03-30 21:10 | Infectious Diseases Prog Note ---
Assessment/Plan Assessment/Plan ASSESSMENT AND PLAN: 1. sepsis, fevers, leukocytosis, ? uti, ? aspiration pna/hap - clinically improved, fevers and leukocytosis resolved - continue vancomycin and zosyn - check f/u labs and chest x-ray - icu to [facility] - d/w RN about transfer to [facility] or telemetry 2. History of diabetes. 3. Hypertension. 4. Weakness. 5. History of sepsis and pneumonia. 6. Dysphagia, Gastrostomy tube and aspiration risk. 7. History of cerebrospinal fluid drainage. 8. Continue treatment for hypertension and diabetes per primary. 9. Anemia. 10. Gastritis. 11. Decreased gait. 12. Altered mental status. 13. Age-related disability. 14. Dementia. 15. Gastroesophageal reflux disease. 16. Benign prostatic hypertrophy. 17. Normal pressure hydrocephalus. 18. condom catheter 19. Case discussed with Dr. Caraballo. 20. MAR was noted. 21. Case was discussed with RN. 22. Family history is noncontributory. 23. Social history is negative. 24. Orders were noted. 25. Records were reviewed. 26. Continue treatment per primary consultants. 27. Skin care protocol and ICU care. 28. allergies - negative 29. mrsa colonization and isolation Subjective Constitutional: Denies: fever HEENT: Reports: congestion - less Respiratory: Reports: shortness of breath - less Cardiovascular: Denies: chest pain Gastrointestinal/Abdominal: Denies: nausea, vomiting, diarrhea Genitourinary: Reports: other - + condom catheter Neurologic: Reports: weakness, other - generalized weakness Psychiatric: Reports: no symptoms Skin: Denies: rash Hematologic: Denies: bleeding Musculoskeletal: Denies: pain Allergies: Coded Allergies: No Known Allergies (Unverified , 03/28/17) Objective Vital Signs Last 24 Hour Vital Signs Date Time Temp Pulse Resp B/P (MAP) Pulse Ox O2 Delivery O2 Flow Rate FiO2 03/30/17 20:30 85 24 113/70 100 Nasal Cannula 2.0 03/30/17 20:00 87 03/30/17 20:00 97.5 89 24 87/83 100 Nasal Cannula 2.0 03/30/17 19:30 98 22 111/77 100 Nasal Cannula 2.0 03/30/17 19:00 82 18 113/83 100 Nasal Cannula 2.0 03/30/17 18:30 91 17 116/76 100 Nasal Cannula 2.0 03/30/17 18:00 98.0 90 20 117/82 100 Nasal Cannula 2.0 03/30/17 17:30 86 17 122/88 100 Nasal Cannula 2.0 03/30/17 17:00 87 18 123/93 100 Nasal Cannula 2.0 03/30/17 16:30 74 19 120/76 100 Nasal Cannula 2.0 03/30/17 16:00 98.2 90 20 118/78 100 Nasal Cannula 2.0 03/30/17 16:00 82 03/30/17 15:40 100 Nasal Cannula 2.0 28 03/30/17 15:40 82 20 Nasal Cannula 2.0 28 03/30/17 15:30 87 19 120/76 100 Nasal Cannula 2.0 03/30/17 15:00 82 18 122/80 100 Nasal Cannula 2.0 03/30/17 14:30 88 17 113/81 100 Nasal Cannula 2.0 03/30/17 14:00 76 17 114/86 100 Nasal Cannula 2.0 03/30/17 13:30 79 17 125/86 99 Nasal Cannula 2.0 03/30/17 13:00 75 16 124/82 99 Nasal Cannula 2.0 03/30/17 12:30 77 15 117/88 99 Nasal Cannula 2.0 03/30/17 12:00 72 03/30/17 12:00 98.1 72 14 112/73 15 Nasal Cannula 2.0 03/30/17 11:30 89 18 112/73 100 Nasal Cannula 2.0 03/30/17 11:00 70 13 114/80 98 Nasal Cannula 2.0 03/30/17 10:30 74 15 116/81 99 Nasal Cannula 2.0 03/30/17 10:00 70 15 118/81 99 Venturi Mask 30 03/30/17 09:30 76 15 111/87 99 Venturi Mask 30 03/30/17 09:00 88 15 113/86 99 Venturi Mask 30 03/30/17 08:30 76 14 112/79 100 Venturi Mask 30 03/30/17 08:00 70 03/30/17 08:00 84 13 107/54 100 Venturi Mask 30 03/30/17 07:30 97.7 81 14 116/72 100 Venturi Mask 30 03/30/17 07:13 100 Venturi Mask 4.0 30 03/30/17 07:13 75 20 Venturi Mask 4.0 30 03/30/17 07:13 Venturi Mask 4.0 30 03/30/17 07:00 85 12 115/72 100 Venturi Mask 35 03/30/17 06:00 77 13 102/68 100 Non-Rebreather 30 03/30/17 05:30 82 15 108/84 100 Non-Rebreather 30 03/30/17 05:00 82 15 143/73 100 Non-Rebreather 35 03/30/17 04:30 83 17 113/83 100 Non-Rebreather 35 03/30/17 04:00 84 03/30/17 04:00 96.6 84 18 119/78 100 Non-Rebreather 35 03/30/17 03:30 91 12 140/95 100 Non-Rebreather 35 03/30/17 03:00 78 15 107/82 100 Non-Rebreather 35 03/30/17 02:30 78 15 97/75 100 Non-Rebreather 35 03/30/17 02:00 78 16 100/69 100 Non-Rebreather 35 03/30/17 01:30 83 14 107/76 99 Non-Rebreather 35 03/30/17 01:00 83 14 106/79 100 Non-Rebreather 35 03/30/17 00:30 80 18 117/83 100 Non-Rebreather 35 03/30/17 00:00 90 03/30/17 00:00 97.2 90 19 116/97 99 Non-Rebreather 35 03/29/17 23:30 83 16 106/76 100 Non-Rebreather 35 03/29/17 23:00 87 17 116/72 100 Non-Rebreather 35 03/29/17 22:30 86 14 117/68 99 Non-Rebreather 35 03/29/17 22:00 83 15 105/66 100 Non-Rebreather 35 03/29/17 21:36 84 94/68 03/29/17 21:30 82 15 94/68 100 Non-Rebreather 35 Height (Feet): 5 Height (Inches): 6.00 Weight (Pounds): 134 General Appearance: no acute distress, other - neck supple HEENT: normocephalic, atraumatic, anicteric, mucous membranes moist, EOMI, pharynx normal, supple, no JVD Respiratory/Chest: no accessory muscle use, rhonchi - bilaterally Cardiovascular: normal rate, regular rhythm Abdomen: normal bowel sounds, soft, non tender, no organomegaly, non distended Genitourinary: other - + condom catheter - urine clearer Extremities: no cyanosis Skin: no rash Neurologic/Psychiatric: contract negotiator II-XII grossly normal, alert, responsive Lymphatic: no neck adenopathy Musculoskeletal: no effusion Objective 03/29 - chest x-ray: IMPRESSION: Element of subsegmental atelectasis left lung base Persistent prominence vascular markings right lung base, likely compressive Stable cardiomegaly Microbiology Date/Time Source Procedure Growth Status 03/28/17 13:47 Blood Blood Culture - Preliminary NO GROWTH AFTER 24 HOURS Resulted 03/28/17 13:25 Blood Blood Culture - Preliminary NO GROWTH AFTER 24 HOURS Resulted 03/28/17 16:05 Nasal Nares MRSA Culture - Final Staphylococcus Aureus - Mrsa Complete 03/28/17 16:00 Urine,Clean Catch Urine Culture - Preliminary Mixed Urogenital Contaminants Resulted 03/28/17 16:05 Rectum VRE Culture - Final NO VANCOMYCIN RESISTANT ENTEROCOCCUS ... Complete Laboratory Tests Test 03/30/17 04:30 03/30/17 05:00 White Blood Count 9.6 K/UL (4.8-10.8) Red Blood Count 3.86 M/UL (4.70-6.10) L Hemoglobin 11.8 G/DL (14.2-18.0) L Hematocrit 36.6 % (42.0-52.0) L Mean Corpuscular Volume 95 FL (80-99) Mean Corpuscular Hemoglobin 30.6 PG (27.0-31.0) Mean Corpuscular Hemoglobin Concent 32.2 G/DL (32.0-36.0) Red Cell Distribution Width 15.2 % (11.6-14.8) H Platelet Count 173 K/UL (150-450) Mean Platelet Volume 6.0 FL (6.5-10.1) L Neutrophils (%) (Auto) 78.4 % (45.0-75.0) H Lymphocytes (%) (Auto) 19.7 % (20.0-45.0) L Monocytes (%) (Auto) 1.6 % (1.0-10.0) Eosinophils (%) (Auto) 0.0 % (0.0-3.0) Basophils (%) (Auto) 0.4 % (0.0-2.0) Reticulocyte Count 2.4 % (0.0-2.0) H Sodium Level 143 mEQ/L (135-145) Potassium Level 3.9 mEQ/L (3.4-4.9) Chloride Level 108 mEQ/L (98-107) H Carbon Dioxide Level 23 mEQ/L (20-30) Anion Gap 12 (5-15) Blood Urea Nitrogen 40 mg/dL (7-23) H Creatinine 0.8 mg/dL (0.7-1.2) Estimat Glomerular Filtration Rate mL/min (>60) Glucose Level 157 mg/dL (74-106) H Calcium Level 8.7 mg/dL (8.6-10.2) Iron Level 102 ug/dL (59-158) Total Iron Binding Capacity 210 ug/dL (250-400) L Percent Iron Saturation 49 % (15-50) Unsaturated Iron Binding 108 ug/dL (112-346) L Ferritin 386 ng/mL (10-230) H Troponin I < 0.30 ng/mL (<=0.30) Carcinoembryonic Antigen 4.4 ng/mL H Vitamin B12 Level 1499 pg/mL (211-946) H Folate Pending Thyroid Stimulating Hormone (TSH) 0.793 uIU/mL (0.300-4.500) Free Thyroxine 1.39 ng/dL (0.86-1.85) Stool Occult Blood Positive (NEGATIVE) Current Medications Medications (Trade) Dose Ordered Sig/Angel Route PRN Reason Start Time Stop Time Status Last Admin Dose Admin Acetaminophen (Tylenol) 650 mg Q4H PRN GT Mild Pain/Temp > 100.5 03/29/17 11:00 04/28/17 10:59 Albuterol/ Ipratropium (DuoNeb 0.5-3(2.5)mg/3ml) 3 ml 5x DAILYPRN PRN HHN Shortness of Breath 03/28/17 14:30 04/02/17 14:29 Clotrimazole (Lotrimin) 1 applic TWICE A DAY TOPIC 03/28/17 18:00 04/27/17 17:59 03/30/17 17:28 Dextrose (Dextrose 50%) STAT PRN IV Hypoglycemia 03/28/17 14:30 04/27/17 14:29 Famotidine (Pepcid I.v.) 20 mg Q12HR IVP 03/29/17 15:00 04/28/17 14:59 03/30/17 20:38 Methylprednisolone Sodium Succinate (Solu-MEDROL) 40 mg EVERY 6 HOURS IVP 03/28/17 17:00 04/27/17 16:59 03/30/17 17:28 Ondansetron HCl (Zofran) 4 mg Q6H PRN IVP Nausea & Vomiting 03/28/17 14:30 04/27/17 14:29 Piperacillin Sod/ Tazobactam Sod 3.375 gm/Dextrose 110 ml @ 27.5 mls/hr EVERY 8 HOURS IVPB 03/28/17 22:00 04/02/17 21:59 03/30/17 14:00 Sodium Chloride 1,000 ml @ 50 mls/hr Q20H IV 03/28/17 17:00 04/27/17 16:59 03/30/17 08:46 Vancomycin HCl (Vanco rx to dose) 1 ea DAILY PRN MISC PRN RX PROTOCOL 03/28/17 16:30 04/27/17 16:29 Vancomycin/Sodium Chloride 250 ml @ 166.667 mls/hr Q24H IVPB 03/30/17 18:00 04/04/17 17:59 03/30/17 17:28 ZANE DE LEON Mar 30, 2017 21:10
--- NOTE | 2017-03-30 21:18 | Cardiology Progress Note ---
Assessment/Plan Assessment/Plan sepsis, on wide spectrum abx atrial fibrillation, chronic, rapid rate will switch to diltiazem through g-tube and discontinue diltiazem Iv d/w [facility] casework specialist and [facility] in ICU stable for transfer from ICU from cardiac standpoint has indications for full antiocagulation due to a fib for stroke prevention Subjective Subjective The patient is unresponsive. He does not follow commands and there is no evidence that he can hear or see Objective Last 24 Hour Vital Signs Date Time Temp Pulse Resp B/P (MAP) Pulse Ox O2 Delivery O2 Flow Rate FiO2 03/30/17 21:00 79 17 118/76 100 Nasal Cannula 2.0 03/30/17 20:30 85 24 113/70 100 Nasal Cannula 2.0 03/30/17 20:00 87 03/30/17 20:00 97.5 89 24 87/83 100 Nasal Cannula 2.0 03/30/17 19:30 98 22 111/77 100 Nasal Cannula 2.0 03/30/17 19:00 82 18 113/83 100 Nasal Cannula 2.0 03/30/17 18:30 91 17 116/76 100 Nasal Cannula 2.0 03/30/17 18:00 98.0 90 20 117/82 100 Nasal Cannula 2.0 03/30/17 17:30 86 17 122/88 100 Nasal Cannula 2.0 03/30/17 17:00 87 18 123/93 100 Nasal Cannula 2.0 03/30/17 16:30 74 19 120/76 100 Nasal Cannula 2.0 03/30/17 16:00 98.2 90 20 118/78 100 Nasal Cannula 2.0 03/30/17 16:00 82 03/30/17 15:40 100 Nasal Cannula 2.0 28 03/30/17 15:40 82 20 Nasal Cannula 2.0 28 03/30/17 15:30 87 19 120/76 100 Nasal Cannula 2.0 03/30/17 15:00 82 18 122/80 100 Nasal Cannula 2.0 03/30/17 14:30 88 17 113/81 100 Nasal Cannula 2.0 03/30/17 14:00 76 17 114/86 100 Nasal Cannula 2.0 03/30/17 13:30 79 17 125/86 99 Nasal Cannula 2.0 03/30/17 13:00 75 16 124/82 99 Nasal Cannula 2.0 03/30/17 12:30 77 15 117/88 99 Nasal Cannula 2.0 03/30/17 12:00 72 03/30/17 12:00 98.1 72 14 112/73 15 Nasal Cannula 2.0 03/30/17 11:30 89 18 112/73 100 Nasal Cannula 2.0 03/30/17 11:00 70 13 114/80 98 Nasal Cannula 2.0 03/30/17 10:30 74 15 116/81 99 Nasal Cannula 2.0 03/30/17 10:00 70 15 118/81 99 Venturi Mask 30 03/30/17 09:30 76 15 111/87 99 Venturi Mask 30 03/30/17 09:00 88 15 113/86 99 Venturi Mask 30 03/30/17 08:30 76 14 112/79 100 Venturi Mask 30 03/30/17 08:00 70 03/30/17 08:00 84 13 107/54 100 Venturi Mask 30 03/30/17 07:30 97.7 81 14 116/72 100 Venturi Mask 30 03/30/17 07:13 100 Venturi Mask 4.0 30 03/30/17 07:13 75 20 Venturi Mask 4.0 30 03/30/17 07:13 Venturi Mask 4.0 30 03/30/17 07:00 85 12 115/72 100 Venturi Mask 35 03/30/17 06:00 77 13 102/68 100 Non-Rebreather 30 03/30/17 05:30 82 15 108/84 100 Non-Rebreather 30 03/30/17 05:00 82 15 143/73 100 Non-Rebreather 35 03/30/17 04:30 83 17 113/83 100 Non-Rebreather 35 03/30/17 04:00 84 03/30/17 04:00 96.6 84 18 119/78 100 Non-Rebreather 35 03/30/17 03:30 91 12 140/95 100 Non-Rebreather 35 03/30/17 03:00 78 15 107/82 100 Non-Rebreather 35 03/30/17 02:30 78 15 97/75 100 Non-Rebreather 35 03/30/17 02:00 78 16 100/69 100 Non-Rebreather 35 03/30/17 01:30 83 14 107/76 99 Non-Rebreather 35 03/30/17 01:00 83 14 106/79 100 Non-Rebreather 35 03/30/17 00:30 80 18 117/83 100 Non-Rebreather 35 03/30/17 00:00 90 03/30/17 00:00 97.2 90 19 116/97 99 Non-Rebreather 35 03/29/17 23:30 83 16 106/76 100 Non-Rebreather 35 03/29/17 23:00 87 17 116/72 100 Non-Rebreather 35 03/29/17 22:30 86 14 117/68 99 Non-Rebreather 35 03/29/17 22:00 83 15 105/66 100 Non-Rebreather 35 03/29/17 21:36 84 94/68 03/29/17 21:30 82 15 94/68 100 Non-Rebreather 35 General Appearance: lethargic EENT: other - left eye closed Neck: no JVD, muscle spasm Rhythm: Afib Cardiovascular: tachycardia Respiratory/Chest: rhonchi - bilaterally Abdomen: soft, other - g tube Neurologic: other - right hemiplagia Intake and Output 03/30/17 03/31/17 19:00 07:00 Intake Total 1305.0 ml 162.5 ml Output Total 250 ml 150 ml Balance 1055.0 ml 12.5 ml IV Total 1040.0 ml 52.5 ml Tube Feeding 265 ml 110 ml Output Urine Total 250 ml 150 ml Laboratory Tests Test 03/30/17 04:30 03/30/17 05:00 White Blood Count 9.6 K/UL (4.8-10.8) Red Blood Count 3.86 M/UL (4.70-6.10) L Hemoglobin 11.8 G/DL (14.2-18.0) L Hematocrit 36.6 % (42.0-52.0) L Mean Corpuscular Volume 95 FL (80-99) Mean Corpuscular Hemoglobin 30.6 PG (27.0-31.0) Mean Corpuscular Hemoglobin Concent 32.2 G/DL (32.0-36.0) Red Cell Distribution Width 15.2 % (11.6-14.8) H Platelet Count 173 K/UL (150-450) Mean Platelet Volume 6.0 FL (6.5-10.1) L Neutrophils (%) (Auto) 78.4 % (45.0-75.0) H Lymphocytes (%) (Auto) 19.7 % (20.0-45.0) L Monocytes (%) (Auto) 1.6 % (1.0-10.0) Eosinophils (%) (Auto) 0.0 % (0.0-3.0) Basophils (%) (Auto) 0.4 % (0.0-2.0) Reticulocyte Count 2.4 % (0.0-2.0) H Sodium Level 143 mEQ/L (135-145) Potassium Level 3.9 mEQ/L (3.4-4.9) Chloride Level 108 mEQ/L (98-107) H Carbon Dioxide Level 23 mEQ/L (20-30) Anion Gap 12 (5-15) Blood Urea Nitrogen 40 mg/dL (7-23) H Creatinine 0.8 mg/dL (0.7-1.2) Estimat Glomerular Filtration Rate mL/min (>60) Glucose Level 157 mg/dL (74-106) H Calcium Level 8.7 mg/dL (8.6-10.2) Iron Level 102 ug/dL (59-158) Total Iron Binding Capacity 210 ug/dL (250-400) L Percent Iron Saturation 49 % (15-50) Unsaturated Iron Binding 108 ug/dL (112-346) L Ferritin 386 ng/mL (10-230) H Troponin I < 0.30 ng/mL (<=0.30) Carcinoembryonic Antigen 4.4 ng/mL H Vitamin B12 Level 1499 pg/mL (211-946) H Folate Pending Thyroid Stimulating Hormone (TSH) 0.793 uIU/mL (0.300-4.500) Free Thyroxine 1.39 ng/dL (0.86-1.85) Stool Occult Blood Positive (NEGATIVE) Microbiology Date/Time Source Procedure Growth Status 03/28/17 13:47 Blood Blood Culture - Preliminary NO GROWTH AFTER 24 HOURS Resulted 03/28/17 13:25 Blood Blood Culture - Preliminary NO GROWTH AFTER 24 HOURS Resulted 03/28/17 16:05 Nasal Nares MRSA Culture - Final Staphylococcus Aureus - Mrsa Complete 03/28/17 16:00 Urine,Clean Catch Urine Culture - Preliminary Mixed Urogenital Contaminants Resulted 03/28/17 16:05 Rectum VRE Culture - Final NO VANCOMYCIN RESISTANT ENTEROCOCCUS ... Complete NOBLE MALDONADO Mar 30, 2017 21:18
[2017-03-30] MEDS ORDERED: DuoNeb 0.5-3(2.5)mg/3ml neb HHN PRN (22:30)
[2017-03-30] MEDS ORDERED: Acetaminophen 650mg/20.3ml GT PRN (23:00)
[2017-03-31 03:48] VITALS: BP 131/80
[2017-03-31] MEDS: Piperacillin/Tazobactam 3.375 GM in D5W 110 ML IVPB SCH ×3 (06:14→21:21)
[2017-03-31] MEDS: Solu-MEDROL 40mg Inj IVP SCH ×4 (06:14→23:33)
[2017-03-31 07:14] LABS: BASOPHILS % (AUTO) 0.6 % (0.0-2.0); LYMPHOCYTES % (AUTO) 20.8 % (20.0-45.0); MEAN CORPUSCULAR HEMOGLOBIN 31.5 PG (27.0-31.0); MEAN CORPUSCULAR VOLUME 95 FL (80-99); MEAN PLATELET VOLUME 6.2 FL (6.5-10.1); MONOCYTES % (AUTO) 1.4 % (1.0-10.0); NEUTROPHILS % (AUTO) 77.3 % (45.0-75.0); PLATELET COUNT 147 K/UL (150-450); RED CELL DISTRIBUTION WIDTH 14.8 % (11.6-14.8); WHITE BLOOD COUNT 7.3 K/UL (4.8-10.8)
[2017-03-31 07:23] LABS: ANION GAP 13 (5-15); CALCIUM 8.3 mg/dL (8.6-10.2); CARBON DIOXIDE 23 mEQ/L (20-30); CHLORIDE 109 mEQ/L (98-107); CREATININE 0.8 mg/dL (0.7-1.2); HEMOLYSIS 64; SODIUM 145 mEQ/L (135-145)
[2017-03-31 08:04] VITALS: BP 115/70
--- NOTE | 2017-03-31 08:33 | General Progress Note ---
Assessment/Plan Assessment/Plan Aspiration Pneumonia + Sepsis -improving. Rapid A. Fib. - improving In CY. Subjective Allergies: Coded Allergies: No Known Allergies (Unverified , 03/28/17) Subjective More alert. Objective Last 24 Hour Vital Signs Date Time Temp Pulse Resp B/P (MAP) Pulse Ox O2 Delivery O2 Flow Rate FiO2 03/31/17 08:04 97.3 83 21 115/70 97 Nasal Cannula 2.0 03/31/17 07:44 99 Nasal Cannula 2.0 28 03/31/17 07:44 Nasal Cannula 2.0 28 03/31/17 07:43 85 20 Nasal Cannula 2.0 28 03/31/17 06:16 87 118/67 03/31/17 04:00 80 03/31/17 03:48 98.8 89 20 131/80 95 Nasal Cannula 2.0 03/31/17 00:00 83 03/30/17 23:53 98.4 63 22 121/74 98 Nasal Cannula 2.0 03/30/17 22:00 89 22 Nasal Cannula 2.0 28 03/30/17 22:00 80 17 118/71 100 Nasal Cannula 2.0 03/30/17 22:00 Nasal Cannula 3.0 32 03/30/17 22:00 98 Nasal Cannula 2.0 28 03/30/17 21:30 84 108/71 03/30/17 21:30 80 17 108/71 100 Nasal Cannula 2.0 03/30/17 21:00 79 17 118/76 100 Nasal Cannula 2.0 03/30/17 20:30 85 24 113/70 100 Nasal Cannula 2.0 03/30/17 20:00 87 03/30/17 20:00 97.5 89 24 87/83 100 Nasal Cannula 2.0 03/30/17 19:30 98 22 111/77 100 Nasal Cannula 2.0 03/30/17 19:00 82 18 113/83 100 Nasal Cannula 2.0 03/30/17 18:30 91 17 116/76 100 Nasal Cannula 2.0 03/30/17 18:00 98.0 90 20 117/82 100 Nasal Cannula 2.0 03/30/17 17:30 86 17 122/88 100 Nasal Cannula 2.0 03/30/17 17:00 87 18 123/93 100 Nasal Cannula 2.0 8/23/17 16:30 74 19 120/76 100 Nasal Cannula 2.0 03/30/17 16:00 98.2 90 20 118/78 100 Nasal Cannula 2.0 03/30/17 16:00 82 03/30/17 15:40 100 Nasal Cannula 2.0 28 03/30/17 15:40 82 20 Nasal Cannula 2.0 28 03/30/17 15:30 87 19 120/76 100 Nasal Cannula 2.0 03/30/17 15:00 82 18 122/80 100 Nasal Cannula 2.0 03/30/17 14:30 88 17 113/81 100 Nasal Cannula 2.0 03/30/17 14:00 76 17 114/86 100 Nasal Cannula 2.0 03/30/17 13:30 79 17 125/86 99 Nasal Cannula 2.0 03/30/17 13:00 75 16 124/82 99 Nasal Cannula 2.0 03/30/17 12:30 77 15 117/88 99 Nasal Cannula 2.0 03/30/17 12:00 72 03/30/17 12:00 98.1 72 14 112/73 15 Nasal Cannula 2.0 03/30/17 11:30 89 18 112/73 100 Nasal Cannula 2.0 03/30/17 11:00 70 13 114/80 98 Nasal Cannula 2.0 03/30/17 10:30 74 15 116/81 99 Nasal Cannula 2.0 03/30/17 10:00 70 15 118/81 99 Venturi Mask 30 03/30/17 09:30 76 15 111/87 99 Venturi Mask 30 03/30/17 09:00 88 15 113/86 99 Venturi Mask 30 Laboratory Tests 03/31/17 04:50: White Blood Count 7.3, Red Blood Count 3.70L, Hemoglobin 11.7L, Hematocrit 35.3L , Mean Corpuscular Volume 95, Mean Corpuscular Hemoglobin 31.5H, Mean Corpuscular Hemoglobin Concent 33.0, Red Cell Distribution Width 14.8, Platelet Count 147L, Mean Platelet Volume 6.2L, Neutrophils (%) (Auto) 77.3H, Lymphocytes (%) (Auto) 20.8, Monocytes (%) (Auto) 1.4, Eosinophils (%) (Auto) 0.0, Basophils (%) (Auto) 0.6, Sodium Level 145, Potassium Level 4.0, Chloride Level 109H, Carbon Dioxide Level 23, Anion Gap 13, Blood Urea Nitrogen 41H, Creatinine 0.8, Estimat Glomerular Filtration Rate , Glucose Level 136H, Calcium Level 8.3L Height (Feet): 5 Height (Inches): 6.00 Weight (Pounds): 139 Objective No distress. In CY. CV IRR/IRR Lungs CTA Abd SNT + E No CCE VEILA RESENDIZ Mar 31, 2017 08:33
[2017-03-31] MEDS ORDERED: Famotidine 20 MG/ 2ML VIAL IVP SCH (09:00)
--- NOTE | 2017-03-31 09:49 | GI Progress Note ---
Assessment/Plan Problems: (1) G tube feedings ICD Codes: Z93.1 - Gastrostomy status SNOMED: 134776274, 682648999 (2) PEG (percutaneous endoscopic gastrostomy) adjustment/replacement/removal ICD Codes: Z43.1 - Encounter for attention to gastrostomy SNOMED: 149825928, 117145719 (3) Anemia ICD Codes: D64.9 - Anemia, unspecified SNOMED: 882045106 Status: stable Status Narrative Discussed with Dr. Ayers. Assessment/Plan OB stool positive GT replaced with 20 fr >> KUB confirmed, okay to use. GT site care daily/prn fu cdiff, consider Imodium after sample collected GTFs per dietary monitor H&H, prn transfusions ppi abx fu labs The patient was seen and examined at bedside and all new and available data was reviewed in the patients chart. I agree with the above findings, impression and plan. (Patient seen earlier today. Signature stamp does not reflect patient encounter time.). -Diallo Ayers MD Subjective Subjective limited Objective Last 24 Hour Vital Signs Date Time Temp Pulse Resp B/P (MAP) Pulse Ox O2 Delivery O2 Flow Rate FiO2 03/31/17 08:04 97.3 83 21 115/70 97 Nasal Cannula 2.0 03/31/17 08:00 77 03/31/17 07:44 99 Nasal Cannula 2.0 28 03/31/17 07:44 Nasal Cannula 2.0 28 03/31/17 07:43 85 20 Nasal Cannula 2.0 28 03/31/17 06:16 87 118/67 03/31/17 04:00 80 03/31/17 03:48 98.8 89 20 131/80 95 Nasal Cannula 2.0 03/31/17 00:00 83 03/30/17 23:53 98.4 63 22 121/74 98 Nasal Cannula 2.0 03/30/17 22:00 89 22 Nasal Cannula 2.0 28 03/30/17 22:00 80 17 118/71 100 Nasal Cannula 2.0 03/30/17 22:00 Nasal Cannula 3.0 32 03/30/17 22:00 98 Nasal Cannula 2.0 28 03/30/17 21:30 84 108/71 03/30/17 21:30 80 17 108/71 100 Nasal Cannula 2.0 03/30/17 21:00 79 17 118/76 100 Nasal Cannula 2.0 03/30/17 20:30 85 24 113/70 100 Nasal Cannula 2.0 03/30/17 20:00 87 03/30/17 20:00 97.5 89 24 87/83 100 Nasal Cannula 2.0 03/30/17 19:30 98 22 111/77 100 Nasal Cannula 2.0 03/30/17 19:00 82 18 113/83 100 Nasal Cannula 2.0 03/30/17 18:30 91 17 116/76 100 Nasal Cannula 2.0 03/30/17 18:00 98.0 90 20 117/82 100 Nasal Cannula 2.0 03/30/17 17:30 86 17 122/88 100 Nasal Cannula 2.0 03/30/17 17:00 87 18 123/93 100 Nasal Cannula 2.0 03/30/17 16:30 74 19 120/76 100 Nasal Cannula 2.0 03/30/17 16:00 98.2 90 20 118/78 100 Nasal Cannula 2.0 03/30/17 16:00 82 03/30/17 15:40 100 Nasal Cannula 2.0 28 03/30/17 15:40 82 20 Nasal Cannula 2.0 28 03/30/17 15:30 87 19 120/76 100 Nasal Cannula 2.0 03/30/17 15:00 82 18 122/80 100 Nasal Cannula 2.0 03/30/17 14:30 88 17 113/81 100 Nasal Cannula 2.0 03/30/17 14:00 76 17 114/86 100 Nasal Cannula 2.0 03/30/17 13:30 79 17 125/86 99 Nasal Cannula 2.0 03/30/17 13:00 75 16 124/82 99 Nasal Cannula 2.0 03/30/17 12:30 77 15 117/88 99 Nasal Cannula 2.0 03/30/17 12:00 72 03/30/17 12:00 98.1 72 14 112/73 15 Nasal Cannula 2.0 03/30/17 11:30 89 18 112/73 100 Nasal Cannula 2.0 03/30/17 11:00 70 13 114/80 98 Nasal Cannula 2.0 03/30/17 10:30 74 15 116/81 99 Nasal Cannula 2.0 03/30/17 10:00 70 15 118/81 99 Venturi Mask 30 Intake and Output 03/31/17 04/01/17 19:00 07:00 # Bowel Movements 1 Laboratory Tests Test 03/31/17 04:50 White Blood Count 7.3 K/UL (4.8-10.8) Red Blood Count 3.70 M/UL (4.70-6.10) L Hemoglobin 11.7 G/DL (14.2-18.0) L Hematocrit 35.3 % (42.0-52.0) L Mean Corpuscular Volume 95 FL (80-99) Mean Corpuscular Hemoglobin 31.5 PG (27.0-31.0) H Mean Corpuscular Hemoglobin Concent 33.0 G/DL (32.0-36.0) Red Cell Distribution Width 14.8 % (11.6-14.8) Platelet Count 147 K/UL (150-450) L Mean Platelet Volume 6.2 FL (6.5-10.1) L Neutrophils (%) (Auto) 77.3 % (45.0-75.0) H Lymphocytes (%) (Auto) 20.8 % (20.0-45.0) Monocytes (%) (Auto) 1.4 % (1.0-10.0) Eosinophils (%) (Auto) 0.0 % (0.0-3.0) Basophils (%) (Auto) 0.6 % (0.0-2.0) Sodium Level 145 mEQ/L (135-145) Potassium Level 4.0 mEQ/L (3.4-4.9) Chloride Level 109 mEQ/L (98-107) H Carbon Dioxide Level 23 mEQ/L (20-30) Anion Gap 13 (5-15) Blood Urea Nitrogen 41 mg/dL (7-23) H Creatinine 0.8 mg/dL (0.7-1.2) Estimat Glomerular Filtration Rate mL/min (>60) Glucose Level 136 mg/dL (74-106) H Calcium Level 8.3 mg/dL (8.6-10.2) L Height (Feet): 5 Height (Inches): 6.00 Weight (Pounds): 139 General Appearance: no apparent distress Cardiovascular: normal rate Respiratory/Chest: no respiratory distress Abdominal Exam: site - c/d/i StephenEvy tejada N.P. Mar 31, 2017 09:49 DIALLO AYERS Mar 31, 2017 12:05
--- NOTE | 2017-03-31 11:50 | Diagnostic Imaging Report ---
Indication: Dyspnea Comparison: 03/29/17 A single view chest radiograph was obtained. Findings: The heart is borderline enlarged. Left hemidiaphragm is elevated with probable mild underlying atelectasis without significant change in appearance. Lungs are essentially clear. Impression: No change. Mild elevation of the left hemidiaphragm
[2017-03-31 12:12] VITALS: BP 132/67
--- NOTE | 2017-03-31 13:40 | Diagnostic Imaging Report ---
APPROVED REPORT CPT Code: 85877 Present Symptoms Shortness of breath BILATERAL: Imaging reveals a patent deep venous system bilaterally. There is no evidence of thrombus within the femoral, popliteal or tibial segments. The greater saphenous veins are also within normal limits. Doppler indicates normal spontaneous flow within these segments.
[2017-03-31] MEDS ORDERED: 1/2 NS 1000ml IV ONE (13:46)
--- NOTE | 2017-03-31 15:34 | Critical Care Progress Note ---
Assessment/Plan Assessment/Plan ASSESSMENT: 1. Probable pneumonia aspiration. 2. Sepsis syndrome. 3. Significant hypoxemia 4. Chronic atrial fibrillation. 5. Respiratory insufficiency 6. Chronic obstructive pulmonary disease. 7. acute renal insufficiency 8. Hypernatremia 9. Hypoxemia PLAN: 1. out of the ICU 2. Intravenous antibiotics noted and cultures 3. titrate oxygen and steroids 4. Continue Coumadin per pharmacy protocol. 5. obtain chest Xray and ABG 6. negative Venous US 7. monitor ABG and adjust medications/laboratory data/nursing notes reviewed in detail note reviewed and edited care discussed with RN and RT Critical Care - Subjective Interval Events: care noted and reviewed stable and transfer to [facility] noted ROS Limited/Unobtainable: Yes Condition: improving EKG Rhythm: Sinus Rhythm I&O: Intake and Output 03/31/17 04/01/17 19:00 07:00 Intake Total 300 ml Balance 300 ml IV Total 300 ml # Bowel Movements 1 Critical Care - Objective CXR: overall no change Last 24 Hour Vital Signs Date Time Temp Pulse Resp B/P (MAP) Pulse Ox O2 Delivery O2 Flow Rate FiO2 03/31/17 12:13 90 132/67 03/31/17 12:12 97.6 90 19 132/67 97 Nasal Cannula 2.0 03/31/17 12:00 78 03/31/17 08:04 97.3 83 21 115/70 97 Nasal Cannula 2.0 03/31/17 08:00 77 03/31/17 07:44 99 Nasal Cannula 2.0 03/31/17 07:44 Nasal Cannula 2.0 03/31/17 07:43 85 20 Nasal Cannula 2.0 03/31/17 06:16 87 118/67 03/31/17 04:00 80 03/31/17 03:48 98.8 89 20 131/80 95 Nasal Cannula 2.0 03/31/17 00:00 83 03/30/17 23:53 98.4 63 22 121/74 98 Nasal Cannula 2.0 03/30/17 22:00 89 22 Nasal Cannula 2.0 28 03/30/17 22:00 80 17 118/71 100 Nasal Cannula 2.0 03/30/17 22:00 Nasal Cannula 3.0 32 03/30/17 22:00 98 Nasal Cannula 2.0 28 03/30/17 21:30 84 108/71 03/30/17 21:30 80 17 108/71 100 Nasal Cannula 2.0 03/30/17 21:00 79 17 118/76 100 Nasal Cannula 2.0 03/30/17 20:30 85 24 113/70 100 Nasal Cannula 2.0 03/30/17 20:00 87 03/30/17 20:00 97.5 89 24 87/83 100 Nasal Cannula 2.0 03/30/17 19:30 98 22 111/77 100 Nasal Cannula 2.0 03/30/17 19:00 82 18 113/83 100 Nasal Cannula 2.0 03/30/17 18:30 91 17 116/76 100 Nasal Cannula 2.0 03/30/17 18:00 98.0 90 20 117/82 100 Nasal Cannula 2.0 03/30/17 17:30 86 17 122/88 100 Nasal Cannula 2.0 03/30/17 17:00 87 18 123/93 100 Nasal Cannula 2.0 03/30/17 16:30 74 19 120/76 100 Nasal Cannula 2.0 03/30/17 16:00 98.2 90 20 118/78 100 Nasal Cannula 2.0 03/30/17 16:00 82 03/30/17 15:40 100 Nasal Cannula 2.0 28 03/30/17 15:40 82 20 Nasal Cannula 2.0 28 Labs: Labs Test 03/28/17 16:00 03/28/17 21:50 03/28/17 23:00 03/29/17 04:30 Urine Color Red Urine Appearance Slightly cloudy Urine pH 5 (4.5-8.0) Urine Specific [place] 1.025 (1.005-1.035) Urine Protein 3+ (NEGATIVE) Urine Glucose (UA) Negative (NEGATIVE) Urine Ketones 1+ (NEGATIVE) Urine Occult Blood 5+ (NEGATIVE) Urine Nitrite Negative (NEGATIVE) Urine Bilirubin Negative (NEGATIVE) Urine Urobilinogen Normal MG/DL (0.0-1.0) Urine Leukocyte Esterase 1+ (NEGATIVE) Urine RBC 60-80 /HPF (0 - 0) Urine WBC 10-15 /HPF (0 - 0) Urine Squamous Epithelial Cells None /LPF (NONE/OCC) Urine Amorphous Sediment Few /LPF (NONE) Urine Bacteria Many /HPF (NONE) Lactic Acid Level 1.50 mmol/L (0.66-2.22) Troponin I < 0.30 ng/mL (<=0.30) < 0.30 ng/mL (<=0.30) Prothrombin Time 14.0 SEC (9.30-11.50) Prothromb Time International Ratio 1.3 (0.9-1.1) White Blood Count 9.2 K/UL (4.8-10.8) Red Blood Count 4.06 M/UL (4.70-6.10) Hemoglobin 12.7 G/DL (14.2-18.0) Hematocrit 39.0 % (42.0-52.0) Mean Corpuscular Volume 96 FL (80-99) Mean Corpuscular Hemoglobin 31.2 PG (27.0-31.0) Mean Corpuscular Hemoglobin Concent 32.6 G/DL (32.0-36.0) Red Cell Distribution Width 15.6 % (11.6-14.8) Platelet Count 173 K/UL (150-450) Mean Platelet Volume 5.9 FL (6.5-10.1) Neutrophils (%) (Auto) 72.6 % (45.0-75.0) Lymphocytes (%) (Auto) 25.8 % (20.0-45.0) Monocytes (%) (Auto) 1.5 % (1.0-10.0) Eosinophils (%) (Auto) 0.0 % (0.0-3.0) Basophils (%) (Auto) 0.2 % (0.0-2.0) Sodium Level 146 mEQ/L (135-145) Potassium Level 4.4 mEQ/L (3.4-4.9) Chloride Level 111 mEQ/L (98-107) Carbon Dioxide Level 23 mEQ/L (20-30) Anion Gap 12 (5-15) Blood Urea Nitrogen 46 mg/dL (7-23) Creatinine 1.0 mg/dL (0.7-1.2) Estimat Glomerular Filtration Rate mL/min (>60) Glucose Level 166 mg/dL (74-106) Calcium Level 8.7 mg/dL (8.6-10.2) Magnesium Level 2.3 mg/dL (1.7-2.5) Pro-B-Type Natriuretic Peptide 9240 pg/mL (0-450) Test 03/29/17 12:25 03/29/17 14:07 03/30/17 04:30 03/30/17 05:00 Arterial Blood pH 7.371 (7.350-7.450) Arterial Blood Partial Pressure CO2 42.6 mmHg (35.0-45.0) Arterial Blood Partial Pressure O2 106.6 mmHg (75.0-100.0) Arterial Blood HCO3 24.1 mmol/L (22.0-26.0) Arterial Blood Oxygen Saturation 96.4 % (92.0-98.0) Arterial Blood Base Excess -1.2 Robert Test Positive Troponin I < 0.30 ng/mL (<=0.30) < 0.30 ng/mL (<=0.30) White Blood Count 9.6 K/UL (4.8-10.8) Red Blood Count 3.86 M/UL (4.70-6.10) Hemoglobin 11.8 G/DL (14.2-18.0) Hematocrit 36.6 % (42.0-52.0) Mean Corpuscular Volume 95 FL (80-99) Mean Corpuscular Hemoglobin 30.6 PG (27.0-31.0) Mean Corpuscular Hemoglobin Concent 32.2 G/DL (32.0-36.0) Red Cell Distribution Width 15.2 % (11.6-14.8) Platelet Count 173 K/UL (150-450) Mean Platelet Volume 6.0 FL (6.5-10.1) Neutrophils (%) (Auto) 78.4 % (45.0-75.0) Lymphocytes (%) (Auto) 19.7 % (20.0-45.0) Monocytes (%) (Auto) 1.6 % (1.0-10.0) Eosinophils (%) (Auto) 0.0 % (0.0-3.0) Basophils (%) (Auto) 0.4 % (0.0-2.0) Reticulocyte Count 2.4 % (0.0-2.0) Sodium Level 143 mEQ/L (135-145) Potassium Level 3.9 mEQ/L (3.4-4.9) Chloride Level 108 mEQ/L (98-107) Carbon Dioxide Level 23 mEQ/L (20-30) Anion Gap 12 (5-15) Blood Urea Nitrogen 40 mg/dL (7-23) Creatinine 0.8 mg/dL (0.7-1.2) Estimat Glomerular Filtration Rate mL/min (>60) Glucose Level 157 mg/dL (74-106) Calcium Level 8.7 mg/dL (8.6-10.2) Iron Level 102 ug/dL (59-158) Total Iron Binding Capacity 210 ug/dL (250-400) Percent Iron Saturation 49 % (15-50) Unsaturated Iron Binding 108 ug/dL (112-346) Ferritin 386 ng/mL (10-230) Carcinoembryonic Antigen 4.4 ng/mL Vitamin B12 Level 1499 pg/mL (211-946) Folate >20.0 ng/mL (>3.0) Thyroid Stimulating Hormone (TSH) 0.793 uIU/mL (0.300-4.500) Free Thyroxine 1.39 ng/dL (0.86-1.85) Stool Occult Blood Positive (NEGATIVE) Test 03/31/17 04:50 White Blood Count 7.3 K/UL (4.8-10.8) Red Blood Count 3.70 M/UL (4.70-6.10) Hemoglobin 11.7 G/DL (14.2-18.0) Hematocrit 35.3 % (42.0-52.0) Mean Corpuscular Volume 95 FL (80-99) Mean Corpuscular Hemoglobin 31.5 PG (27.0-31.0) Mean Corpuscular Hemoglobin Concent 33.0 G/DL (32.0-36.0) Red Cell Distribution Width 14.8 % (11.6-14.8) Platelet Count 147 K/UL (150-450) Mean Platelet Volume 6.2 FL (6.5-10.1) Neutrophils (%) (Auto) 77.3 % (45.0-75.0) Lymphocytes (%) (Auto) 20.8 % (20.0-45.0) Monocytes (%) (Auto) 1.4 % (1.0-10.0) Eosinophils (%) (Auto) 0.0 % (0.0-3.0) Basophils (%) (Auto) 0.6 % (0.0-2.0) Sodium Level 145 mEQ/L (135-145) Potassium Level 4.0 mEQ/L (3.4-4.9) Chloride Level 109 mEQ/L (98-107) Carbon Dioxide Level 23 mEQ/L (20-30) Anion Gap 13 (5-15) Blood Urea Nitrogen 41 mg/dL (7-23) Creatinine 0.8 mg/dL (0.7-1.2) Estimat Glomerular Filtration Rate mL/min (>60) Glucose Level 136 mg/dL (74-106) Calcium Level 8.3 mg/dL (8.6-10.2) Objective: WDWN NAD reduced LOC clear breath sounds bilaterally with occasional rhonchi [id number] without MRG NABS nontender no HSM no CCE nonfocal weak overall on oxygen Micro: Microbiology Date/Time Source Procedure Growth Status 03/28/17 16:05 Nasal Nares MRSA Culture - Final Staphylococcus Aureus - Mrsa Complete 03/28/17 16:00 Urine,Clean Catch Urine Culture - Final Mixed Urogenital Contaminants Complete 03/28/17 16:05 Rectum VRE Culture - Final NO VANCOMYCIN RESISTANT ENTEROCOCCUS ... Complete FAY LLANOS Mar 31, 2017 15:34
--- NOTE | 2017-03-31 15:34 | Infectious Diseases Prog Note ---
Assessment/Plan Assessment/Plan ASSESSMENT AND PLAN: 1. sepsis, fevers, leukocytosis, ? uti, ? aspiration pna/hap vs atx, high aspiration risk - clinically improved, fevers and leukocytosis resolved - continue vancomycin and zosyn - day # 4 abx - check f/u labs and chest x-ray - telemetry - d/w RN 2. History of diabetes. 3. Hypertension. 4. Weakness. 5. History of sepsis and pneumonia. 6. Dysphagia, Gastrostomy tube and aspiration risk. 7. History of cerebrospinal fluid drainage. 8. Continue treatment for hypertension and diabetes per primary. 9. Anemia. 10. Gastritis. 11. Decreased gait. 12. Altered mental status. 13. Age-related disability. 14. Dementia. 15. Gastroesophageal reflux disease. 16. Benign prostatic hypertrophy. 17. Normal pressure hydrocephalus. 18. condom catheter 19. Case discussed with Dr. Caraballo. 20. MAR was noted. 21. Case was discussed with RN. 22. Family history is noncontributory. 23. Social history is negative. 24. Orders were noted. 25. Records were reviewed. 26. Continue treatment per primary consultants. 27. Skin care protocol and ICU care. 28. allergies - negative 29. mrsa colonization and isolation Subjective Constitutional: Reports: fatigue, Denies: fever HEENT: Reports: congestion - mild Respiratory: Reports: shortness of breath - mild Cardiovascular: Denies: chest pain Gastrointestinal/Abdominal: Denies: nausea, vomiting, diarrhea Genitourinary: Reports: other - + pierce Neurologic: Denies: headache Psychiatric: Denies: depression Skin: Denies: rash Hematologic: Denies: bleeding Musculoskeletal: Denies: pain Allergies: Coded Allergies: No Known Allergies (Unverified , 03/28/17) Objective Vital Signs Last 24 Hour Vital Signs Date Time Temp Pulse Resp B/P (MAP) Pulse Ox O2 Delivery O2 Flow Rate FiO2 03/31/17 12:13 90 132/67 03/31/17 12:12 97.6 90 19 132/67 97 Nasal Cannula 2.0 03/31/17 12:00 78 03/31/17 08:04 97.3 83 21 115/70 97 Nasal Cannula 2.0 03/31/17 08:00 77 03/31/17 07:44 99 Nasal Cannula 2.0 28 03/31/17 07:44 Nasal Cannula 2.0 28 03/31/17 07:43 85 20 Nasal Cannula 2.0 28 03/31/17 06:16 87 118/67 03/31/17 04:00 80 03/31/17 03:48 98.8 89 20 131/80 95 Nasal Cannula 2.0 03/31/17 00:00 83 03/30/17 23:53 98.4 63 22 121/74 98 Nasal Cannula 2.0 03/30/17 22:00 89 22 Nasal Cannula 2.0 28 03/30/17 22:00 80 17 118/71 100 Nasal Cannula 2.0 03/30/17 22:00 Nasal Cannula 3.0 32 03/30/17 22:00 98 Nasal Cannula 2.0 28 03/30/17 21:30 84 108/71 03/30/17 21:30 80 17 108/71 100 Nasal Cannula 2.0 03/30/17 21:00 79 17 118/76 100 Nasal Cannula 2.0 03/30/17 20:30 85 24 113/70 100 Nasal Cannula 2.0 03/30/17 20:00 87 03/30/17 20:00 97.5 89 24 87/83 100 Nasal Cannula 2.0 03/30/17 19:30 98 22 111/77 100 Nasal Cannula 2.0 03/30/17 19:00 82 18 113/83 100 Nasal Cannula 2.0 03/30/17 18:30 91 17 116/76 100 Nasal Cannula 2.0 03/30/17 18:00 98.0 90 20 117/82 100 Nasal Cannula 2.0 03/30/17 17:30 86 17 122/88 100 Nasal Cannula 2.0 03/30/17 17:00 87 18 123/93 100 Nasal Cannula 2.0 03/30/17 16:30 74 19 120/76 100 Nasal Cannula 2.0 03/30/17 16:00 98.2 90 20 118/78 100 Nasal Cannula 2.0 03/30/17 16:00 82 03/30/17 15:40 100 Nasal Cannula 2.0 28 03/30/17 15:40 82 20 Nasal Cannula 2.0 28 03/30/17 15:30 87 19 120/76 100 Nasal Cannula 2.0 Height (Feet): 5 Height (Inches): 6.00 Weight (Pounds): 139 General Appearance: no acute distress HEENT: normocephalic, atraumatic, anicteric, mucous membranes moist, EOMI, pharynx normal, supple, no JVD Respiratory/Chest: no respiratory distress, no accessory muscle use, rhonchi - bilaterally Cardiovascular: normal rate, regular rhythm, no gallop/murmur, no JVD Abdomen: normal bowel sounds, soft, non tender, no organomegaly, non distended Genitourinary: other - + pierce Extremities: no cyanosis Skin: no rash Neurologic/Psychiatric: piece meat trimmer II-XII grossly normal, alert, responsive Lymphatic: no neck adenopathy Musculoskeletal: no effusion Objective 03/29 - chest x-ray: IMPRESSION: Element of subsegmental atelectasis left lung base Persistent prominence vascular markings right lung base, likely compressive Stable cardiomegaly Chest x-ray - 03/31 - Findings: The heart is borderline enlarged. Left hemidiaphragm is elevated with probable mild underlying atelectasis without significant change in appearance. Lungs are essentially clear. Impression: No change. Mild elevation of the left hemidiaphragm Microbiology Date/Time Source Procedure Growth Status 03/28/17 16:05 Nasal Nares MRSA Culture - Final Staphylococcus Aureus - Mrsa Complete 03/28/17 16:00 Urine,Clean Catch Urine Culture - Final Mixed Urogenital Contaminants Complete 03/28/17 16:05 Rectum VRE Culture - Final NO VANCOMYCIN RESISTANT ENTEROCOCCUS ... Complete Laboratory Tests Test 03/31/17 04:50 White Blood Count 7.3 K/UL (4.8-10.8) Red Blood Count 3.70 M/UL (4.70-6.10) L Hemoglobin 11.7 G/DL (14.2-18.0) L Hematocrit 35.3 % (42.0-52.0) L Mean Corpuscular Volume 95 FL (80-99) Mean Corpuscular Hemoglobin 31.5 PG (27.0-31.0) H Mean Corpuscular Hemoglobin Concent 33.0 G/DL (32.0-36.0) Red Cell Distribution Width 14.8 % (11.6-14.8) Platelet Count 147 K/UL (150-450) L Mean Platelet Volume 6.2 FL (6.5-10.1) L Neutrophils (%) (Auto) 77.3 % (45.0-75.0) H Lymphocytes (%) (Auto) 20.8 % (20.0-45.0) Monocytes (%) (Auto) 1.4 % (1.0-10.0) Eosinophils (%) (Auto) 0.0 % (0.0-3.0) Basophils (%) (Auto) 0.6 % (0.0-2.0) Sodium Level 145 mEQ/L (135-145) Potassium Level 4.0 mEQ/L (3.4-4.9) Chloride Level 109 mEQ/L (98-107) H Carbon Dioxide Level 23 mEQ/L (20-30) Anion Gap 13 (5-15) Blood Urea Nitrogen 41 mg/dL (7-23) H Creatinine 0.8 mg/dL (0.7-1.2) Estimat Glomerular Filtration Rate mL/min (>60) Glucose Level 136 mg/dL (74-106) H Calcium Level 8.3 mg/dL (8.6-10.2) L Current Medications Medications (Trade) Dose Ordered Sig/Angel Route PRN Reason Start Time Stop Time Status Last Admin Dose Admin Acetaminophen (Tylenol) 650 mg Q4H PRN GT Mild Pain/Temp > 100.5 03/30/17 23:00 04/28/17 10:59 Albuterol/ Ipratropium (DuoNeb 0.5-3(2.5)mg/3ml) 3 ml 5x DAILYPRN PRN HHN Shortness of Breath 03/30/17 22:30 04/02/17 14:29 Clotrimazole (Lotrimin) 1 applic TWICE A DAY TOPIC 03/31/17 09:00 04/27/17 17:59 03/31/17 08:41 Dextrose (Dextrose 50%) STAT PRN IV Hypoglycemia 03/30/17 23:02 04/29/17 23:01 Diltiazem HCl (Cardizem) 60 mg EVERY 6 HOURS GT 03/31/17 18:00 04/30/17 17:59 Famotidine (Pepcid I.v.) 20 mg Q12HR IVP 03/31/17 09:00 04/28/17 14:59 03/31/17 08:44 Methylprednisolone Sodium Succinate (Solu-MEDROL) 40 mg EVERY 6 HOURS IVP 03/31/17 00:00 04/27/17 16:59 03/31/17 12:13 Ondansetron HCl (Zofran) 4 mg Q6H PRN IVP Nausea & Vomiting 03/30/17 23:04 04/29/17 23:03 Piperacillin Sod/ Tazobactam Sod 3.375 gm/Dextrose 110 ml @ 27.5 mls/hr EVERY 8 HOURS IVPB 03/31/17 06:00 04/02/17 21:59 03/31/17 13:52 Sodium Chloride 1,000 ml @ 50 mls/hr Q20H IV 03/30/17 23:00 04/27/17 22:59 03/30/17 23:29 Vancomycin HCl (Vanco rx to dose) 1 ea DAILY PRN MISC PRN RX PROTOCOL 03/31/17 09:00 04/27/17 16:29 Vancomycin/Sodium Chloride 250 ml @ 166.667 mls/hr Q24H IVPB 03/31/17 18:00 04/04/17 17:59 ZANE DE LEON Mar 31, 2017 15:34
[2017-03-31 15:58] VITALS: BP 127/72
--- NOTE | 2017-03-31 17:40 | Cardiology Progress Note ---
Assessment/Plan Assessment/Plan satrial fibrillation, better controlled on cardizem he has indications for antiocagulation, but his Hb was dropping (could be dilutional) and his blood OB positive will rigo and d/w Dr Caraballo if he is candidate for antiocagulation continue diltiazem every 6 hours Subjective Subjective The patient is unresponsive. He does not follow commands and there is no evidence that he can hear or see, although nurse indicated today, that with his family, he is more agitated, when he heaers their voicese Objective Last 24 Hour Vital Signs Date Time Temp Pulse Resp B/P (MAP) Pulse Ox O2 Delivery O2 Flow Rate FiO2 03/31/17 15:58 97.9 90 21 127/72 97 Nasal Cannula 2.0 03/31/17 12:13 90 132/67 03/31/17 12:12 97.6 90 19 132/67 97 Nasal Cannula 2.0 03/31/17 12:00 78 03/31/17 08:04 97.3 83 21 115/70 97 Nasal Cannula 2.0 03/31/17 08:00 77 03/31/17 07:44 99 Nasal Cannula 2.0 28 03/31/17 07:44 Nasal Cannula 2.0 28 03/31/17 07:43 85 20 Nasal Cannula 2.0 28 03/31/17 06:16 87 118/67 03/31/17 04:00 80 03/31/17 03:48 98.8 89 20 131/80 95 Nasal Cannula 2.0 03/31/17 00:00 83 03/30/17 23:53 98.4 63 22 121/74 98 Nasal Cannula 2.0 03/30/17 22:00 89 22 Nasal Cannula 2.0 28 03/30/17 22:00 80 17 118/71 100 Nasal Cannula 2.0 03/30/17 22:00 Nasal Cannula 3.0 32 03/30/17 22:00 98 Nasal Cannula 2.0 28 03/30/17 21:30 84 108/71 03/30/17 21:30 80 17 108/71 100 Nasal Cannula 2.0 03/30/17 21:00 79 17 118/76 100 Nasal Cannula 2.0 03/30/17 20:30 85 24 113/70 100 Nasal Cannula 2.0 03/30/17 20:00 87 03/30/17 20:00 97.5 89 24 87/83 100 Nasal Cannula 2.0 03/30/17 19:30 98 22 111/77 100 Nasal Cannula 2.0 03/30/17 19:00 82 18 113/83 100 Nasal Cannula 2.0 03/30/17 18:30 91 17 116/76 100 Nasal Cannula 2.0 03/30/17 18:00 98.0 90 20 117/82 100 Nasal Cannula 2.0 General Appearance: other - non verbal and not interactive with enviroment EENT: PERRL/EOMI - left eye closed, facial droop Neck: no JVD Rhythm: Afib Cardiovascular: tachycardia Respiratory/Chest: accessory muscle use, rhonchi - bilaterally Abdomen: soft - g tube Extremities: other - no edema Neurologic: unresponsiveness Intake and Output 03/31/17 04/01/17 19:00 07:00 Intake Total 300 ml Balance 300 ml IV Total 300 ml # Bowel Movements 1 Laboratory Tests Test 03/31/17 04:50 White Blood Count 7.3 K/UL (4.8-10.8) Red Blood Count 3.70 M/UL (4.70-6.10) L Hemoglobin 11.7 G/DL (14.2-18.0) L Hematocrit 35.3 % (42.0-52.0) L Mean Corpuscular Volume 95 FL (80-99) Mean Corpuscular Hemoglobin 31.5 PG (27.0-31.0) H Mean Corpuscular Hemoglobin Concent 33.0 G/DL (32.0-36.0) Red Cell Distribution Width 14.8 % (11.6-14.8) Platelet Count 147 K/UL (150-450) L Mean Platelet Volume 6.2 FL (6.5-10.1) L Neutrophils (%) (Auto) 77.3 % (45.0-75.0) H Lymphocytes (%) (Auto) 20.8 % (20.0-45.0) Monocytes (%) (Auto) 1.4 % (1.0-10.0) Eosinophils (%) (Auto) 0.0 % (0.0-3.0) Basophils (%) (Auto) 0.6 % (0.0-2.0) Sodium Level 145 mEQ/L (135-145) Potassium Level 4.0 mEQ/L (3.4-4.9) Chloride Level 109 mEQ/L (98-107) H Carbon Dioxide Level 23 mEQ/L (20-30) Anion Gap 13 (5-15) Blood Urea Nitrogen 41 mg/dL (7-23) H Creatinine 0.8 mg/dL (0.7-1.2) Estimat Glomerular Filtration Rate mL/min (>60) Glucose Level 136 mg/dL (74-106) H Calcium Level 8.3 mg/dL (8.6-10.2) NOBLE YORK Mar 31, 2017 17:40
[2017-03-31] MEDS: Vancomycin 750mg/NS 250ml 250 ML IVPB SCH (18:38)
[2017-03-31 20:41] VITALS: BP 118/77
[2017-03-31 23:30] VITALS: BP 124/67
[2017-04-01 03:48] VITALS: BP 112/76
[2017-04-01] MEDS: Solu-MEDROL 40mg Inj IVP SCH (05:57)
[2017-04-01] MEDS: Piperacillin/Tazobactam 3.375 GM in D5W 110 ML IVPB SCH ×3 (06:02→22:52)
[2017-04-01 06:11] LABS: LYMPHOCYTES % (AUTO) 18.4 % (20.0-45.0); MEAN CORPUSCULAR HEMOGLOBIN 31.8 PG (27.0-31.0); MEAN CORPUSCULAR HGB CONC 33.4 G/DL (32.0-36.0); MEAN CORPUSCULAR VOLUME 95 FL (80-99); MEAN PLATELET VOLUME 6.1 FL (6.5-10.1); MONOCYTES % (AUTO) 1.7 % (1.0-10.0); NEUTROPHILS % (AUTO) 79.8 % (45.0-75.0); PLATELET COUNT 165 K/UL (150-450); RED BLOOD COUNT 3.72 M/UL (4.70-6.10); RED CELL DISTRIBUTION WIDTH 15.2 % (11.6-14.8); WHITE BLOOD COUNT 6.1 K/UL (4.8-10.8)
[2017-04-01 06:34] LABS: ANION GAP 10 (5-15); CALCIUM 8.2 mg/dL (8.6-10.2); CARBON DIOXIDE 25 mEQ/L (20-30); CHLORIDE 108 mEQ/L (98-107); CREATININE 0.8 mg/dL (0.7-1.2); HEMOLYSIS 3; MAGNESIUM 2.4 mg/dL (1.7-2.5); PHOSPHORUS 2.2 mg/dL (2.5-4.8); POTASSIUM 3.6 mEQ/L (3.4-4.9); SODIUM 143 mEQ/L (135-145)
[2017-04-01 08:00] VITALS: BP 125/88
--- NOTE | 2017-04-01 10:15 | GI Progress Note ---
Assessment/Plan Problems: (1) G tube feedings ICD Codes: Z93.1 - Gastrostomy status SNOMED: 196256314, 862756447 (2) PEG (percutaneous endoscopic gastrostomy) adjustment/replacement/removal ICD Codes: Z43.1 - Encounter for attention to gastrostomy SNOMED: 416923380, 428877609 (3) Anemia ICD Codes: D64.9 - Anemia, unspecified SNOMED: 837187295 Status: stable Status Narrative Discussed with Dr. Ayers. Assessment/Plan OB stool positive GT replaced with 20 fr >> KUB confirmed, okay to use. GT site care daily/prn fu cdiff, consider Imodium after sample collected GTFs per dietary monitor H&H, prn transfusions ppi abx fu labs Subjective Subjective limited Objective Last 24 Hour Vital Signs Date Time Temp Pulse Resp B/P (MAP) Pulse Ox O2 Delivery O2 Flow Rate FiO2 04/01/17 08:00 97.0 68 20 125/88 99 Nasal Cannula 2.0 04/01/17 05:57 88 147/98 04/01/17 04:00 73 04/01/17 03:48 98.2 77 19 112/76 98 Nasal Cannula 04/01/17 00:00 70 03/31/17 23:33 80 126/66 03/31/17 23:30 98.0 67 20 124/67 Nasal Cannula 03/31/17 20:41 98.0 78 21 118/77 98 Nasal Cannula 03/31/17 20:11 Nasal Cannula 2.0 28 03/31/17 20:11 88 20 Nasal Cannula 2.0 28 03/31/17 20:11 97 Nasal Cannula 2.0 28 03/31/17 20:00 63 03/31/17 18:39 90 127/72 03/31/17 16:00 78 03/31/17 15:58 97.9 90 21 127/72 97 Nasal Cannula 2.0 03/31/17 12:13 90 132/67 03/31/17 12:12 97.6 90 19 132/67 97 Nasal Cannula 2.0 03/31/17 12:00 78 Laboratory Tests Test 04/01/17 05:30 White Blood Count 6.1 K/UL (4.8-10.8) Red Blood Count 3.72 M/UL (4.70-6.10) L Hemoglobin 11.8 G/DL (14.2-18.0) L Hematocrit 35.4 % (42.0-52.0) L Mean Corpuscular Volume 95 FL (80-99) Mean Corpuscular Hemoglobin 31.8 PG (27.0-31.0) H Mean Corpuscular Hemoglobin Concent 33.4 G/DL (32.0-36.0) Red Cell Distribution Width 15.2 % (11.6-14.8) H Platelet Count 165 K/UL (150-450) Mean Platelet Volume 6.1 FL (6.5-10.1) L Neutrophils (%) (Auto) 79.8 % (45.0-75.0) H Lymphocytes (%) (Auto) 18.4 % (20.0-45.0) L Monocytes (%) (Auto) 1.7 % (1.0-10.0) Eosinophils (%) (Auto) 0.0 % (0.0-3.0) Basophils (%) (Auto) 0.0 % (0.0-2.0) Sodium Level 143 mEQ/L (135-145) Potassium Level 3.6 mEQ/L (3.4-4.9) Chloride Level 108 mEQ/L (98-107) H Carbon Dioxide Level 25 mEQ/L (20-30) Anion Gap 10 (5-15) Blood Urea Nitrogen 35 mg/dL (7-23) H Creatinine 0.8 mg/dL (0.7-1.2) Estimat Glomerular Filtration Rate mL/min (>60) Glucose Level 218 mg/dL (74-106) H Calcium Level 8.2 mg/dL (8.6-10.2) L Phosphorus Level 2.2 mg/dL (2.5-4.8) L Magnesium Level 2.4 mg/dL (1.7-2.5) Height (Feet): 5 Height (Inches): 6.00 Weight (Pounds): 146 General Appearance: alert Cardiovascular: normal rate Respiratory/Chest: other - NC Abdominal Exam: GT site - c/d/i Evy Stephen N.P. Apr 01, 2017 10:15
[2017-04-01] MEDS ORDERED: Potassium Phosphate 30 MM in NS 275 ML IV ONE (12:00)
[2017-04-01 12:01] VITALS: BP 135/91
--- NOTE | 2017-04-01 12:35 | Critical Care Progress Note ---
Assessment/Plan Assessment/Plan ASSESSMENT: 1. Probable pneumonia aspiration. 2. Sepsis syndrome. 3. Significant hypoxemia 4. Chronic atrial fibrillation. 5. Respiratory insufficiency 6. Chronic obstructive pulmonary disease. 7. acute renal insufficiency 8. Hypernatremia 9. Hypoxemia PLAN: 1. stable in CY 2. Intravenous antibiotics noted and cultures 3. titrate oxygen and dc steroids 4. Continue Coumadin per pharmacy protocol. 5. monitor chest Xray and ABG 6. optimize care medications/laboratory data/nursing notes reviewed in detail note reviewed and edited care discussed with RN and RT Critical Care - Subjective Interval Events: CARE NOTED findings reviewed no distress on tele EKG Rhythm: Sinus Rhythm Critical Care - Objective Last 24 Hour Vital Signs Date Time Temp Pulse Resp B/P (MAP) Pulse Ox O2 Delivery O2 Flow Rate FiO2 04/01/17 12:01 97.0 80 22 135/91 97 Nasal Cannula 2.0 04/01/17 09:43 Nasal Cannula 2.0 28 04/01/17 09:42 98 Nasal Cannula 2.0 28 04/01/17 09:41 67 20 Nasal Cannula 2.0 28 04/01/17 08:00 97.0 68 20 125/88 99 Nasal Cannula 2.0 04/01/17 08:00 74 04/01/17 05:57 88 147/98 04/01/17 04:00 73 04/01/17 03:48 98.2 77 19 112/76 98 Nasal Cannula 04/01/17 00:00 70 03/31/17 23:33 80 126/66 03/31/17 23:30 98.0 67 20 124/67 Nasal Cannula 03/31/17 20:41 98.0 78 21 118/77 98 Nasal Cannula 03/31/17 20:11 Nasal Cannula 2.0 28 03/31/17 20:11 88 20 Nasal Cannula 2.0 28 03/31/17 20:11 97 Nasal Cannula 2.0 28 03/31/17 20:00 63 03/31/17 18:39 90 127/72 03/31/17 16:00 78 03/31/17 15:58 97.9 90 21 127/72 97 Nasal Cannula 2.0 Objective: WDWN NAD reduced LOC clear breath sounds bilaterally with occasional rhonchi [id number] without MRG NABS nontender no HSM no CCE nonfocal weak overall on oxygen FAY LLANOS Apr 01, 2017 12:35
--- NOTE | 2017-04-01 13:28 | General Progress Note ---
Assessment/Plan Assessment/Plan Aspiration Pneumonia + Sepsis -improving. Rapid A. Fib. - improving Needs to be coumadinized!! In CY. Subjective Allergies: Coded Allergies: No Known Allergies (Unverified , 03/28/17) Subjective More alert. Objective Last 24 Hour Vital Signs Date Time Temp Pulse Resp B/P (MAP) Pulse Ox O2 Delivery O2 Flow Rate FiO2 04/01/17 13:20 80 135/91 04/01/17 12:01 97.0 80 22 135/91 97 Nasal Cannula 2.0 04/01/17 09:43 Nasal Cannula 2.0 28 04/01/17 09:42 98 Nasal Cannula 2.0 28 04/01/17 09:41 67 20 Nasal Cannula 2.0 28 04/01/17 08:00 97.0 68 20 125/88 99 Nasal Cannula 2.0 04/01/17 08:00 74 04/01/17 05:57 88 147/98 04/01/17 04:00 73 04/01/17 03:48 98.2 77 19 112/76 98 Nasal Cannula 04/01/17 00:00 70 03/31/17 23:33 80 126/66 03/31/17 23:30 98.0 67 20 124/67 Nasal Cannula 03/31/17 20:41 98.0 78 21 118/77 98 Nasal Cannula 03/31/17 20:11 Nasal Cannula 2.0 28 03/31/17 20:11 88 20 Nasal Cannula 2.0 28 03/31/17 20:11 97 Nasal Cannula 2.0 28 03/31/17 20:00 63 03/31/17 18:39 90 127/72 03/31/17 16:00 78 03/31/17 15:58 97.9 90 21 127/72 97 Nasal Cannula 2.0 Laboratory Tests 04/01/17 05:30: White Blood Count 6.1, Red Blood Count 3.72L, Hemoglobin 11.8L, Hematocrit 35.4L , Mean Corpuscular Volume 95, Mean Corpuscular Hemoglobin 31.8H, Mean Corpuscular Hemoglobin Concent 33.4, Red Cell Distribution Width 15.2H, Platelet Count 165, Mean Platelet Volume 6.1L, Neutrophils (%) (Auto) 79.8H, Lymphocytes (%) (Auto) 18.4L, Monocytes (%) (Auto) 1.7, Eosinophils (%) (Auto) 0.0, Basophils (%) (Auto) 0.0, Sodium Level 143, Potassium Level 3.6, Chloride Level 108H, Carbon Dioxide Level 25, Anion Gap 10, Blood Urea Nitrogen 35H, Creatinine 0.8, Estimat Glomerular Filtration Rate , Glucose Level 218H, Calcium Level 8.2L, Phosphorus Level 2.2L, Magnesium Level 2.4 Height (Feet): 5 Height (Inches): 6.00 Weight (Pounds): 146 Objective No distress. In CY. CV IRR/IRR Lungs CTA Abd SNT + E No CCE VELIA RESENDIZ Apr 01, 2017 13:28
[2017-04-01 16:00] VITALS: BP 130/83
[2017-04-01] MEDS ORDERED: NS 275ml ONE (16:13)
[2017-04-01] MEDS ORDERED: 1/2 NS 1000ml IV ONE (16:13)
[2017-04-01] MEDS ORDERED: Tubing IV Secondary IV ONE (16:13)
--- NOTE | 2017-04-01 16:38 | Cardiology Progress Note ---
Assessment/Plan Assessment/Plan atrial fibrillation, better controlled on cardizem continue diltiazem every 6 hours echo results noted, EF is normal Noted that patient was started on Coumadin the patient remains comatose, despite on treatment of sepsis if he has severe vascular brain damage due to stroke, the benefit of coumadin is questionable will d/w Dr Caraballo Subjective Subjective The lito joiner comatose, no change, no imrpovement Objective Last 24 Hour Vital Signs Date Time Temp Pulse Resp B/P (MAP) Pulse Ox O2 Delivery O2 Flow Rate FiO2 04/01/17 16:00 97.1 78 21 130/83 99 Nasal Cannula 2.0 04/01/17 13:20 80 135/91 04/01/17 12:01 97.0 80 22 135/91 97 Nasal Cannula 2.0 04/01/17 12:00 80 04/01/17 09:43 Nasal Cannula 2.0 28 04/01/17 09:42 98 Nasal Cannula 2.0 28 04/01/17 09:41 67 20 Nasal Cannula 2.0 28 04/01/17 08:00 97.0 68 20 125/88 99 Nasal Cannula 2.0 04/01/17 08:00 74 04/01/17 05:57 88 147/98 04/01/17 04:00 73 04/01/17 03:48 98.2 77 19 112/76 98 Nasal Cannula 04/01/17 00:00 70 03/31/17 23:33 80 126/66 03/31/17 23:30 98.0 67 20 124/67 Nasal Cannula 03/31/17 20:41 98.0 78 21 118/77 98 Nasal Cannula 03/31/17 20:11 Nasal Cannula 2.0 28 03/31/17 20:11 88 20 Nasal Cannula 2.0 28 03/31/17 20:11 97 Nasal Cannula 2.0 28 03/31/17 20:00 63 03/31/17 18:39 90 127/72 General Appearance: lethargic Neck: supple Rhythm: Afib Cardiovascular: tachycardia Respiratory/Chest: crackles/rales Abdomen: hypoactive bowel sounds, other - g-tube, feeding in progress Extremities: other - right hemiplegia Intake and Output 04/01/17 04/02/17 19:00 07:00 Intake Total 222.5 ml Balance 222.5 ml IV Total 222.5 ml Laboratory Tests Test 04/01/17 05:30 White Blood Count 6.1 K/UL (4.8-10.8) Red Blood Count 3.72 M/UL (4.70-6.10) L Hemoglobin 11.8 G/DL (14.2-18.0) L Hematocrit 35.4 % (42.0-52.0) L Mean Corpuscular Volume 95 FL (80-99) Mean Corpuscular Hemoglobin 31.8 PG (27.0-31.0) H Mean Corpuscular Hemoglobin Concent 33.4 G/DL (32.0-36.0) Red Cell Distribution Width 15.2 % (11.6-14.8) H Platelet Count 165 K/UL (150-450) Mean Platelet Volume 6.1 FL (6.5-10.1) L Neutrophils (%) (Auto) 79.8 % (45.0-75.0) H Lymphocytes (%) (Auto) 18.4 % (20.0-45.0) L Monocytes (%) (Auto) 1.7 % (1.0-10.0) Eosinophils (%) (Auto) 0.0 % (0.0-3.0) Basophils (%) (Auto) 0.0 % (0.0-2.0) Sodium Level 143 mEQ/L (135-145) Potassium Level 3.6 mEQ/L (3.4-4.9) Chloride Level 108 mEQ/L (98-107) H Carbon Dioxide Level 25 mEQ/L (20-30) Anion Gap 10 (5-15) Blood Urea Nitrogen 35 mg/dL (7-23) H Creatinine 0.8 mg/dL (0.7-1.2) Estimat Glomerular Filtration Rate mL/min (>60) Glucose Level 218 mg/dL (74-106) H Calcium Level 8.2 mg/dL (8.6-10.2) L Phosphorus Level 2.2 mg/dL (2.5-4.8) L Magnesium Level 2.4 mg/dL (1.7-2.5) NOBLE MALDONADO Apr 01, 2017 16:38
[2017-04-01 17:44] LABS: INR 1.6 (0.9-1.1); PROTHROMBIN TIME 15.8 SEC (9.30-11.50)
[2017-04-01] MEDS: Vancomycin 750mg/NS 250ml 250 ML IVPB SCH (18:17)
[2017-04-01] MEDS ORDERED: Warfarin Sodium 2.5mg ORAL ONE (18:30)
--- NOTE | 2017-04-01 18:33 | Cardiology Report ---
APPROVED REPORT EXAM: Two-dimensional and M-mode echocardiogram with Doppler and color Doppler. INDICATION Atrial Fibrillation M-Mode DIMENSIONS IVSd2.1 (0.7-1.1cm)Aortic Root3.6 (2.0-3.7cm) LVDd4.7 (3.5-5.6cm)Aortic Cusp Exc.1.9 (1.5-2.0cm) PWd1.0 (0.7-1.1cm) IVSs2.2 cm LVDs3.6 (2.5-4.0cm) PWs1.8 cm Normal left ventricular chamber size,midl global hypokinesis Left ventricular ejection fraction estimated to be 45-50 %. Moderate left ventricular hypertrophy. Anterior Echo-free space, may be due to pericardial fat or effusion. Moderate bi-atrial enlargement. Right ventricular chamber size is within normal limits. Focal aortic valve sclerosis with adequate cusp excursion. Thickened mitral valve leaflets with normal excursion. Mitral annulus and aortic root calcification. Pulmonic valve not well visualized. Normal tricuspid valve structure. Subcostal views not obtainable due to G-tube site. A color flow and spectral Doppler study was performed and revealed: Mild aortic insufficiency. Moderate mitral regurgitation. Can not determine left ventricular diastolic function by mitral diastolic velocities due to atrial fibrillation. Mild tricuspid regurgitation. Tricuspid systolic velocities suggests peak right ventricular systolic pressure of 31 mmHg.
[2017-04-01 20:30] VITALS: BP 128/70
[2017-04-02] VITALS: BP 115/80
[2017-04-02 04:25] VITALS: BP 136/94
[2017-04-02] MEDS: Piperacillin/Tazobactam 3.375 GM in D5W 110 ML IVPB SCH ×3 (05:45→22:26)
[2017-04-02 07:25] LABS: BASOPHILS % (AUTO) 0.6 % (0.0-2.0); LYMPHOCYTES % (AUTO) 15.3 % (20.0-45.0); MEAN CORPUSCULAR HEMOGLOBIN 31.4 PG (27.0-31.0); MEAN CORPUSCULAR HGB CONC 32.8 G/DL (32.0-36.0); MEAN CORPUSCULAR VOLUME 96 FL (80-99); MEAN PLATELET VOLUME 5.7 FL (6.5-10.1); MONOCYTES % (AUTO) 3.8 % (1.0-10.0); NEUTROPHILS % (AUTO) 80.3 % (45.0-75.0); PLATELET COUNT 167 K/UL (150-450); RED BLOOD COUNT 3.61 M/UL (4.70-6.10); WHITE BLOOD COUNT 7.2 K/UL (4.8-10.8)
[2017-04-02 07:44] LABS: ANION GAP 10 (5-15); CALCIUM 8.1 mg/dL (8.6-10.2); CARBON DIOXIDE 25 mEQ/L (20-30); CHLORIDE 105 mEQ/L (98-107); CREATININE 0.6 mg/dL (0.7-1.2); HEMOLYSIS 3; PHOSPHORUS 2.4 mg/dL (2.5-4.8); POTASSIUM 3.8 mEQ/L (3.4-4.9); SODIUM 140 mEQ/L (135-145)
[2017-04-02 08:00] VITALS: BP 132/73
[2017-04-02 08:26] LABS: INR 1.5 (0.9-1.1); PROTHROMBIN TIME 14.8 SEC (9.30-11.50)
--- NOTE | 2017-04-02 09:05 | Critical Care Progress Note ---
Assessment/Plan Assessment/Plan ASSESSMENT: 1. Respiratory infection, clearing 2. Sepsis syndrome. 3. Significant hypoxemia 4. Chronic atrial fibrillation. 5. Respiratory insufficiency 6. Chronic obstructive pulmonary disease. 7. acute renal insufficiency 8. Hypernatremia 9. Hypoxemia PLAN: 1. stable as is; taper oxygen 2. Intravenous antibiotics and taper per ID 3. titrate oxygen and currently off steroids 4. Continue Coumadin per pharmacy protocol. 5. monitor chest Xray and ABG pending reevaluation 6. optimize care and proceed with dc soon medications/laboratory data/nursing notes reviewed in detail note reviewed and edited care discussed with RN and RT Critical Care - Subjective Interval Events: comfortable NAD care noted and reviewed Condition: stable EKG Rhythm: Sinus Rhythm Critical Care - Objective CXR: fairly clear Last 24 Hour Vital Signs Date Time Temp Pulse Resp B/P (MAP) Pulse Ox O2 Delivery O2 Flow Rate FiO2 04/02/17 08:00 97.5 72 21 132/73 98 Nasal Cannula 2.0 04/02/17 05:46 80 115/80 04/02/17 04:25 98.0 83 20 136/94 99 Nasal Cannula 2.0 04/02/17 04:00 80 04/02/17 00:00 97.0 83 20 115/80 98 Nasal Cannula 2.0 04/02/17 00:00 80 04/01/17 23:21 74 128/70 04/01/17 20:30 97.0 74 20 128/70 96 Nasal Cannula 2.0 04/01/17 20:00 77 04/01/17 19:45 Nasal Cannula 2.0 28 04/01/17 19:45 94 Nasal Cannula 2.0 28 04/01/17 19:45 79 20 Nasal Cannula 2.0 28 04/01/17 18:17 73 130/83 04/01/17 16:00 97.1 78 21 130/83 99 Nasal Cannula 2.0 04/01/17 16:00 73 04/01/17 13:20 80 135/91 04/01/17 12:01 97.0 80 22 135/91 97 Nasal Cannula 2.0 04/01/17 12:00 80 04/01/17 09:43 Nasal Cannula 2.0 28 04/01/17 09:42 98 Nasal Cannula 2.0 28 04/01/17 09:41 67 20 Nasal Cannula 2.0 28 Labs: Laboratory Tests Test 8/25/17 17:00 04/02/17 05:15 Prothrombin Time 15.8 SEC (9.30-11.50) H 14.8 SEC (9.30-11.50) H Prothromb Time International Ratio 1.6 (0.9-1.1) H 1.5 (0.9-1.1) H Vancomycin Level Trough 7.2 ug/mL (5.0-12.0) White Blood Count 7.2 K/UL (4.8-10.8) Red Blood Count 3.61 M/UL (4.70-6.10) L Hemoglobin 11.3 G/DL (14.2-18.0) L Hematocrit 34.5 % (42.0-52.0) L Mean Corpuscular Volume 96 FL (80-99) Mean Corpuscular Hemoglobin 31.4 PG (27.0-31.0) H Mean Corpuscular Hemoglobin Concent 32.8 G/DL (32.0-36.0) Red Cell Distribution Width 15.0 % (11.6-14.8) H Platelet Count 167 K/UL (150-450) Mean Platelet Volume 5.7 FL (6.5-10.1) L Neutrophils (%) (Auto) 80.3 % (45.0-75.0) H Lymphocytes (%) (Auto) 15.3 % (20.0-45.0) L Monocytes (%) (Auto) 3.8 % (1.0-10.0) Eosinophils (%) (Auto) 0.0 % (0.0-3.0) Basophils (%) (Auto) 0.6 % (0.0-2.0) Sodium Level 140 mEQ/L (135-145) Potassium Level 3.8 mEQ/L (3.4-4.9) Chloride Level 105 mEQ/L (98-107) Carbon Dioxide Level 25 mEQ/L (20-30) Anion Gap 10 (5-15) Blood Urea Nitrogen 25 mg/dL (7-23) H Creatinine 0.6 mg/dL (0.7-1.2) L Estimat Glomerular Filtration Rate mL/min (>60) Glucose Level 172 mg/dL (74-106) H Calcium Level 8.1 mg/dL (8.6-10.2) L Phosphorus Level 2.4 mg/dL (2.5-4.8) L Objective: WDWN NAD reduced LOC clear breath sounds bilaterally without rhonchi or wheeze [id number] without MRG NABS nontender no HSM no CCE nonfocal weak overall on oxygen FAY LLANOS Apr 02, 2017 09:05
--- NOTE | 2017-04-02 09:24 | General Progress Note ---
Assessment/Plan Assessment/Plan 1) sepsis--most likely aspiration PNA 2) A fib with RVR--rate is controlled 3) NANI 4) HTN 5) DM 6) aneia 7) s/p PEG 8) hx of normal pressure hydrocephalus Plan Continue Coumadin per Rx continue Abx Subjective Allergies: Coded Allergies: No Known Allergies (Unverified , 03/28/17) Subjective No acute event. No reported fever Objective Last 24 Hour Vital Signs Date Time Temp Pulse Resp B/P (MAP) Pulse Ox O2 Delivery O2 Flow Rate FiO2 04/02/17 08:00 97.5 72 21 132/73 98 Nasal Cannula 2.0 04/02/17 05:46 80 115/80 04/02/17 04:25 98.0 83 20 136/94 99 Nasal Cannula 2.0 04/02/17 04:00 80 04/02/17 00:00 97.0 83 20 115/80 98 Nasal Cannula 2.0 04/02/17 00:00 80 04/01/17 23:21 74 128/70 04/01/17 20:30 97.0 74 20 128/70 96 Nasal Cannula 2.0 04/01/17 20:00 77 04/01/17 19:45 Nasal Cannula 2.0 28 04/01/17 19:45 94 Nasal Cannula 2.0 28 04/01/17 19:45 79 20 Nasal Cannula 2.0 28 04/01/17 18:17 73 130/83 04/01/17 16:00 97.1 78 21 130/83 99 Nasal Cannula 2.0 04/01/17 16:00 73 04/01/17 13:20 80 135/91 04/01/17 12:01 97.0 80 22 135/91 97 Nasal Cannula 2.0 04/01/17 12:00 80 04/01/17 09:43 Nasal Cannula 2.0 28 04/01/17 09:42 98 Nasal Cannula 2.0 28 04/01/17 09:41 67 20 Nasal Cannula 2.0 28 Laboratory Tests 04/01/17 17:00: Prothrombin Time 15.8H, Prothromb Time International Ratio 1.6H, Vancomycin Level Trough 7.2 04/02/17 05:15: Prothrombin Time 14.8H, Prothromb Time International Ratio 1.5H, White Blood Count 7.2, Red Blood Count 3.61L, Hemoglobin 11.3L, Hematocrit 34.5L, Mean Corpuscular Volume 96, Mean Corpuscular Hemoglobin 31.4H, Mean Corpuscular Hemoglobin Concent 32.8, Red Cell Distribution Width 15.0H, Platelet Count 167, Mean Platelet Volume 5.7L, Neutrophils (%) (Auto) 80.3H, Lymphocytes (%) (Auto) 15.3L, Monocytes (%) (Auto) 3.8, Eosinophils (%) (Auto) 0.0, Basophils (%) (Auto ) 0.6, Sodium Level 140, Potassium Level 3.8, Chloride Level 105, Carbon Dioxide Level 25, Anion Gap 10, Blood Urea Nitrogen 25H, Creatinine 0.6L, Estimat Glomerular Filtration Rate , Glucose Level 172H, Calcium Level 8.1L, Phosphorus Level 2.4L Height (Feet): 5 Height (Inches): 6.00 Weight (Pounds): 152 Objective NAD, confused bilat basilar crackles+ S1,S2,irr/irr, no M/R/G soft, non tender, BS+, PEG+ no edema DODD,SAPNA Apr 02, 2017 09:24
[2017-04-02] MEDS ORDERED: Potassium Phosphate 15 MM in NS 275 ML IV ONE (11:00)
[2017-04-02 12:00] VITALS: BP 143/95
--- NOTE | 2017-04-02 14:22 | Cardiology Progress Note ---
Assessment/Plan Problem List: (1) Hyperkalemia (2) NANI (acute kidney injury) (3) Atrial fibrillation with tachycardic ventricular rate (4) Sepsis (5) Anemia (6) PEG (percutaneous endoscopic gastrostomy) adjustment/replacement/removal Status: stable, unchanged Status Narrative Pt is hemodynamically stable. Sepsis resolving He remains in AF, w/ controlled ventricular rates, on diltiazem per G tube. Assessment/Plan Continue iv antibiotics, supportive care. continue diltiazem for rate control in AF. Warfarin being started for prevention of embolic complications. INR subtherapeutic. f/u INR, CBC in am. Subjective ROS Limited/Unobtainable: Yes Subjective Cardiology for Dr. Frye Pt awake, nonverbal Objective Last 24 Hour Vital Signs Date Time Temp Pulse Resp B/P (MAP) Pulse Ox O2 Delivery O2 Flow Rate FiO2 04/02/17 12:00 96.8 84 20 143/95 97 Nasal Cannula 2.0 04/02/17 11:48 84 132/73 04/02/17 09:54 73 04/02/17 08:00 97.5 72 21 132/73 98 Nasal Cannula 2.0 04/02/17 05:46 80 115/80 04/02/17 04:25 98.0 83 20 136/94 99 Nasal Cannula 2.0 04/02/17 04:00 80 04/02/17 00:00 97.0 83 20 115/80 98 Nasal Cannula 2.0 04/02/17 00:00 80 04/01/17 23:21 74 128/70 04/01/17 20:30 97.0 74 20 128/70 96 Nasal Cannula 2.0 04/01/17 20:00 77 04/01/17 19:45 Nasal Cannula 2.0 28 04/01/17 19:45 94 Nasal Cannula 2.0 28 04/01/17 19:45 79 20 Nasal Cannula 2.0 28 04/01/17 18:17 73 130/83 04/01/17 16:00 97.1 78 21 130/83 99 Nasal Cannula 2.0 04/01/17 16:00 73 General Appearance: WD/WN, no apparent distress Neck: no JVD Rhythm: Afib Cardiovascular: no gallop/murmur, irregularly irregular Respiratory/Chest: lungs clear - clear anteriorly. Poor cooperation w/ deep inspir effort Abdomen: non tender, soft, other - + g tube Extremities: other - no edema. No palpable distal LE pulses Neurologic: alert - nonverbal. Contractures of hands. min movements of extrem, other Laboratory Tests Test 04/01/17 17:00 04/02/17 05:15 Prothrombin Time 15.8 SEC (9.30-11.50) H 14.8 SEC (9.30-11.50) H Prothromb Time International Ratio 1.6 (0.9-1.1) H 1.5 (0.9-1.1) H Vancomycin Level Trough 7.2 ug/mL (5.0-12.0) White Blood Count 7.2 K/UL (4.8-10.8) Red Blood Count 3.61 M/UL (4.70-6.10) L Hemoglobin 11.3 G/DL (14.2-18.0) L Hematocrit 34.5 % (42.0-52.0) L Mean Corpuscular Volume 96 FL (80-99) Mean Corpuscular Hemoglobin 31.4 PG (27.0-31.0) H Mean Corpuscular Hemoglobin Concent 32.8 G/DL (32.0-36.0) Red Cell Distribution Width 15.0 % (11.6-14.8) H Platelet Count 167 K/UL (150-450) Mean Platelet Volume 5.7 FL (6.5-10.1) L Neutrophils (%) (Auto) 80.3 % (45.0-75.0) H Lymphocytes (%) (Auto) 15.3 % (20.0-45.0) L Monocytes (%) (Auto) 3.8 % (1.0-10.0) Eosinophils (%) (Auto) 0.0 % (0.0-3.0) Basophils (%) (Auto) 0.6 % (0.0-2.0) Sodium Level 140 mEQ/L (135-145) Potassium Level 3.8 mEQ/L (3.4-4.9) Chloride Level 105 mEQ/L (98-107) Carbon Dioxide Level 25 mEQ/L (20-30) Anion Gap 10 (5-15) Blood Urea Nitrogen 25 mg/dL (7-23) H Creatinine 0.6 mg/dL (0.7-1.2) L Estimat Glomerular Filtration Rate mL/min (>60) Glucose Level 172 mg/dL (74-106) H Calcium Level 8.1 mg/dL (8.6-10.2) L Phosphorus Level 2.4 mg/dL (2.5-4.8) L JESSICA BOATENG Apr 02, 2017 14:22
--- NOTE | 2017-04-02 14:31 | Infectious Diseases Prog Note ---
Assessment/Plan Assessment/Plan ASSESSMENT AND PLAN: 1. sepsis, fevers, leukocytosis, ? uti, ? aspiration pna/hap vs atx, high aspiration risk - clinically improved, fevers and leukocytosis resolved - continue vancomycin and zosyn - day # 6 abx - check f/u labs and chest x-ray - if chest x-ray stable then transition to oral abx 2. History of diabetes. 3. Hypertension. 4. Weakness. 5. History of sepsis and pneumonia. 6. Dysphagia, Gastrostomy tube and aspiration risk. 7. History of cerebrospinal fluid drainage. 8. Continue treatment for hypertension and diabetes per primary. 9. Anemia. 10. Gastritis. 11. Decreased gait. 12. Altered mental status. 13. Age-related disability. 14. Dementia. 15. Gastroesophageal reflux disease. 16. Benign prostatic hypertrophy. 17. Normal pressure hydrocephalus. 18. condom catheter 19. Case discussed with Dr. Caraballo. 20. MAR was noted. 21. Case was discussed with RN. 22. Family history is noncontributory. 23. Social history is negative. 24. Orders were noted. 25. Records were reviewed. 26. Continue treatment per primary consultants. 27. Skin care protocol and ICU care. 28. allergies - negative 29. mrsa colonization and isolation Subjective Constitutional: Reports: fatigue, Denies: fever HEENT: Denies: congestion Respiratory: Denies: shortness of breath Cardiovascular: Denies: chest pain Gastrointestinal/Abdominal: Denies: nausea, vomiting, diarrhea Genitourinary: Reports: other - + pierce Neurologic: Denies: headache Psychiatric: Denies: depression Skin: Denies: rash Hematologic: Denies: bleeding Musculoskeletal: Denies: pain Allergies: Coded Allergies: No Known Allergies (Unverified , 03/28/17) Objective Vital Signs Last 24 Hour Vital Signs Date Time Temp Pulse Resp B/P (MAP) Pulse Ox O2 Delivery O2 Flow Rate FiO2 04/02/17 12:00 96.8 84 20 143/95 97 Nasal Cannula 2.0 04/02/17 11:48 84 132/73 04/02/17 09:54 73 04/02/17 08:00 97.5 72 21 132/73 98 Nasal Cannula 2.0 04/02/17 05:46 80 115/80 04/02/17 04:25 98.0 83 20 136/94 99 Nasal Cannula 2.0 04/02/17 04:00 80 04/02/17 00:00 97.0 83 20 115/80 98 Nasal Cannula 2.0 04/02/17 00:00 80 04/01/17 23:21 74 128/70 04/01/17 20:30 97.0 74 20 128/70 96 Nasal Cannula 2.0 04/01/17 20:00 77 04/01/17 19:45 Nasal Cannula 2.0 28 04/01/17 19:45 94 Nasal Cannula 2.0 28 04/01/17 19:45 79 20 Nasal Cannula 2.0 28 04/01/17 18:17 73 130/83 04/01/17 16:00 97.1 78 21 130/83 99 Nasal Cannula 2.0 04/01/17 16:00 73 Height (Feet): 5 Height (Inches): 6.00 Weight (Pounds): 152 General Appearance: no acute distress HEENT: normocephalic, atraumatic, anicteric, mucous membranes moist, EOMI, pharynx normal, supple, no JVD Respiratory/Chest: lungs clear, normal breath sounds, no respiratory distress, no accessory muscle use, rhonchi - bilaterally Cardiovascular: normal rate, regular rhythm, no gallop/murmur, no JVD Abdomen: normal bowel sounds, soft, non tender, no organomegaly, non distended Genitourinary: other - + pierce - urine clear Extremities: no cyanosis Skin: no rash Neurologic/Psychiatric: food and nutrition supervisor II-XII grossly normal, alert, responsive Lymphatic: no neck adenopathy Musculoskeletal: no effusion Objective 03/29 - chest x-ray: IMPRESSION: Element of subsegmental atelectasis left lung base Persistent prominence vascular markings right lung base, likely compressive Stable cardiomegaly Chest x-ray - 03/31 - Findings: The heart is borderline enlarged. Left hemidiaphragm is elevated with probable mild underlying atelectasis without significant change in appearance. Lungs are essentially clear. Impression: No change. Mild elevation of the left hemidiaphragm Microbiology Date/Time Source Procedure Growth Status 03/28/17 13:47 Blood Blood Culture - Preliminary NO GROWTH AFTER 4 DAYS Resulted 03/28/17 16:05 Nasal Nares MRSA Culture - Final Staphylococcus Aureus - Mrsa Complete 03/28/17 16:00 Urine,Clean Catch Urine Culture - Final Mixed Urogenital Contaminants Complete 03/28/17 16:05 Rectum VRE Culture - Final NO VANCOMYCIN RESISTANT ENTEROCOCCUS ... Complete Laboratory Tests Test 04/01/17 17:00 04/02/17 05:15 Prothrombin Time 15.8 SEC (9.30-11.50) H 14.8 SEC (9.30-11.50) H Prothromb Time International Ratio 1.6 (0.9-1.1) H 1.5 (0.9-1.1) H Vancomycin Level Trough 7.2 ug/mL (5.0-12.0) White Blood Count 7.2 K/UL (4.8-10.8) Red Blood Count 3.61 M/UL (4.70-6.10) L Hemoglobin 11.3 G/DL (14.2-18.0) L Hematocrit 34.5 % (42.0-52.0) L Mean Corpuscular Volume 96 FL (80-99) Mean Corpuscular Hemoglobin 31.4 PG (27.0-31.0) H Mean Corpuscular Hemoglobin Concent 32.8 G/DL (32.0-36.0) Red Cell Distribution Width 15.0 % (11.6-14.8) H Platelet Count 167 K/UL (150-450) Mean Platelet Volume 5.7 FL (6.5-10.1) L Neutrophils (%) (Auto) 80.3 % (45.0-75.0) H Lymphocytes (%) (Auto) 15.3 % (20.0-45.0) L Monocytes (%) (Auto) 3.8 % (1.0-10.0) Eosinophils (%) (Auto) 0.0 % (0.0-3.0) Basophils (%) (Auto) 0.6 % (0.0-2.0) Sodium Level 140 mEQ/L (135-145) Potassium Level 3.8 mEQ/L (3.4-4.9) Chloride Level 105 mEQ/L (98-107) Carbon Dioxide Level 25 mEQ/L (20-30) Anion Gap 10 (5-15) Blood Urea Nitrogen 25 mg/dL (7-23) H Creatinine 0.6 mg/dL (0.7-1.2) L Estimat Glomerular Filtration Rate mL/min (>60) Glucose Level 172 mg/dL (74-106) H Calcium Level 8.1 mg/dL (8.6-10.2) L Phosphorus Level 2.4 mg/dL (2.5-4.8) L Current Medications Medications (Trade) Dose Ordered Sig/Angel Route PRN Reason Start Time Stop Time Status Last Admin Dose Admin Acetaminophen (Tylenol) 650 mg Q4H PRN GT Mild Pain/Temp > 100.5 03/30/17 23:00 04/28/17 10:59 Albuterol/ Ipratropium (DuoNeb 0.5-3(2.5)mg/3ml) 3 ml 5x DAILYPRN PRN HHN Shortness of Breath 03/30/17 22:30 04/02/17 14:29 Clotrimazole (Lotrimin) 1 applic TWICE A DAY TOPIC 03/31/17 09:00 04/27/17 17:59 04/02/17 08:37 Dextrose (Dextrose 50%) STAT PRN IV Hypoglycemia 03/30/17 23:02 04/29/17 23:01 Diltiazem HCl (Cardizem) 60 mg EVERY 6 HOURS GT 03/31/17 18:00 04/30/17 17:59 04/02/17 11:48 Ondansetron HCl (Zofran) 4 mg Q6H PRN IVP Nausea & Vomiting 03/30/17 23:04 04/29/17 23:03 Piperacillin Sod/ Tazobactam Sod 3.375 gm/Dextrose 110 ml @ 27.5 mls/hr EVERY 8 HOURS IVPB 03/31/17 06:00 04/02/17 21:59 04/02/17 13:53 Potassium Phosphate 15 mm/ Sodium Chloride 280 ml @ 46.667 mls/ hr ONCE ONCE IV 04/02/17 11:00 04/02/17 16:59 04/02/17 11:48 Ranitidine HCl (Zantac) 150 mg Q12HR GT 03/31/17 21:00 04/30/17 20:59 04/02/17 08:38 Sodium Chloride 1,000 ml @ 50 mls/hr Q20H IV 03/30/17 23:00 04/27/17 22:59 04/02/17 05:46 Vancomycin HCl (Vanco rx to dose) 1 ea DAILY PRN MISC PRN RX PROTOCOL 03/31/17 09:00 04/27/17 16:29 Vancomycin HCl 1 gm/Dextrose 275 ml @ 183.708 mls/hr Q24H IVPB 04/02/17 18:00 04/07/17 17:59 Warfarin Sodium (Coumadin per pharmacy) 1 ea DAILY PRN MISC Per rx protocol 04/01/17 13:30 05/01/17 13:29 Warfarin Sodium (Coumadin) 5 mg ONCE ONCE ORAL 04/02/17 17:00 04/02/17 17:01 ZANE DE LEON Apr 02, 2017 14:31
[2017-04-02] MEDS ORDERED: Sterile Water Irrig 1000ml IRRIG ONE (15:29)
[2017-04-02] MEDS ORDERED: 1/2 NS 1000ml IV ONE (15:29)
[2017-04-02] MEDS ORDERED: NS 275ml ONE (15:29)
[2017-04-02] MEDS ORDERED: Tubing IV Secondary IV ONE (15:29)
[2017-04-02 16:00] VITALS: BP 133/81
[2017-04-02] MEDS ORDERED: Warfarin Sodium 5mg ORAL ONE (17:00)
[2017-04-02] MEDS: Vancomycin 1gm/D5W 275ml IVPB SCH ×2 (18:07)
[2017-04-02 20:27] VITALS: BP 124/73
[2017-04-03 00:04] VITALS: BP 141/96
[2017-04-03 03:51] VITALS: BP 147/98
[2017-04-03] MEDS: Piperacillin/Tazobactam 3.375 GM in D5W 110 ML IVPB SCH ×2 (05:46→13:15)
[2017-04-03 07:57] LABS: INR 1.9 (0.9-1.1); PROTHROMBIN TIME 19.2 SEC (9.30-11.50)
[2017-04-03 08:10] VITALS: BP 131/74
--- NOTE | 2017-04-03 11:12 | Diagnostic Imaging Report ---
Indication: Dyspnea Comparison: 03/31/17 A single view chest radiograph was obtained. Findings: There is mildly calcified. Bones are osteopenic. Heart size is borderline. Lung volumes are low. No obvious infiltrate seen. Impression: No acute disease
[2017-04-03 11:40] VITALS: BP 159/82
--- NOTE | 2017-04-03 12:38 | Cardiology Progress Note ---
Assessment/Plan Problem List: (1) Hyperkalemia (2) NANI (acute kidney injury) (3) Atrial fibrillation with tachycardic ventricular rate (4) Sepsis (5) Anemia (6) PEG (percutaneous endoscopic gastrostomy) adjustment/replacement/removal Status: stable, unchanged Status Narrative Pt is hemodynamically stable. Sepsis resolving He remains in AF, w/ controlled ventricular rates, on diltiazem per G tube and initiating warfarin No significant change in neuro status Assessment/Plan Continue iv antibiotics, GT feeds, supportive care continue diltiazem for rate control in AF. INR near therapeutic, on warfarin Subjective ROS Limited/Unobtainable: Yes Subjective Cardiology for Dr. Frye No respiratory distress. Awake/nonverbal Objective Last 24 Hour Vital Signs Date Time Temp Pulse Resp B/P (MAP) Pulse Ox O2 Delivery O2 Flow Rate FiO2 04/03/17 11:40 97.2 76 20 159/82 97 Nasal Cannula 2.0 04/03/17 08:10 96.9 78 20 131/74 95 Nasal Cannula 2.0 04/03/17 08:00 61 04/03/17 06:53 Nasal Cannula 2.0 04/03/17 06:53 78 20 Nasal Cannula 2.0 04/03/17 06:53 95 Nasal Cannula 2.0 04/03/17 05:56 68 147/68 04/03/17 04:00 64 04/03/17 03:51 96.7 68 20 147/98 Nasal Cannula 04/03/17 00:04 96.7 81 20 141/96 Nasal Cannula 04/03/17 00:04 77 143/84 04/03/17 00:00 76 04/02/17 20:27 96.3 77 20 124/73 100 Nasal Cannula 04/02/17 20:00 79 04/02/17 19:46 Nasal Cannula 2.0 28 04/02/17 19:46 93 Nasal Cannula 2.0 04/02/17 19:45 59 20 Nasal Cannula 2.0 28 04/02/17 18:07 77 133/81 04/02/17 16:00 97.9 77 21 133/81 96 Room Air 04/02/17 16:00 79 General Appearance: WD/WN, no apparent distress Neck: supple, no JVD Rhythm: Afib Cardiovascular: normal rate, no gallop/murmur, irregularly irregular Respiratory/Chest: rhonchi - bilaterally - R> L rhonchi Abdomen: normal bowel sounds, non tender, soft, other - + g tube Neurologic: aphasia Laboratory Tests Test 04/03/17 06:00 Prothrombin Time 19.2 SEC (9.30-11.50) H Prothromb Time International Ratio 1.9 (0.9-1.1) H JESSICA BOATENG Apr 03, 2017 12:38
--- NOTE | 2017-04-03 12:54 | Critical Care Progress Note ---
Assessment/Plan Assessment/Plan ASSESSMENT: 1. Respiratory infection, clearing 2. Sepsis syndrome. 3. Significant hypoxemia 4. Chronic atrial fibrillation. 5. Respiratory insufficiency 6. Chronic obstructive pulmonary disease. 7. acute renal insufficiency 8. Hypernatremia 9. Hypoxemia PLAN: 1. stable as is; taper oxygen; cxr negative 2. antibiotics and taper per ID 3. titrate oxygen and currently with minimal need 4. Continue Coumadin per pharmacy protocol. 5. monitor chest Xray PRN 6. optimize care and proceed with dc soon medications/laboratory data/nursing notes reviewed in detail note reviewed and edited care discussed with RN and RT Critical Care - Subjective ROS Limited/Unobtainable: Yes EKG Rhythm: Sinus Rhythm Critical Care - Objective Last 24 Hour Vital Signs Date Time Temp Pulse Resp B/P (MAP) Pulse Ox O2 Delivery O2 Flow Rate FiO2 04/03/17 11:40 97.2 76 20 159/82 97 Nasal Cannula 2.0 04/03/17 08:10 96.9 78 20 131/74 95 Nasal Cannula 2.0 04/03/17 08:00 61 04/03/17 06:53 Nasal Cannula 2.0 04/03/17 06:53 78 20 Nasal Cannula 2.0 04/03/17 06:53 95 Nasal Cannula 2.0 04/03/17 05:56 68 147/68 04/03/17 04:00 64 04/03/17 03:51 96.7 68 20 147/98 Nasal Cannula 04/03/17 00:04 96.7 81 20 141/96 Nasal Cannula 04/03/17 00:04 77 143/84 04/03/17 00:00 76 04/02/17 20:27 96.3 77 20 124/73 100 Nasal Cannula 04/02/17 20:00 79 04/02/17 19:46 Nasal Cannula 2.0 28 04/02/17 19:46 93 Nasal Cannula 2.0 28 04/02/17 19:45 59 20 Nasal Cannula 2.0 28 04/02/17 18:07 77 133/81 04/02/17 16:00 97.9 77 21 133/81 96 Room Air 04/02/17 16:00 79 Objective: WDWN NAD reduced LOC clear breath sounds bilaterally without rhonchi or wheeze [id number] without MRG NABS nontender no HSM no CCE nonfocal weak overall on oxygen ISHAAYA,FAY Apr 03, 2017 12:54
--- NOTE | 2017-04-03 13:02 | General Progress Note ---
Assessment/Plan Assessment/Plan 1) sepsis--most likely aspiration PNA 2) A fib with RVR--rate is controlled 3) NANI 4) HTN 5) DM 6) aneia 7) s/p PEG 8) hx of normal pressure hydrocephalus Plan Continue Coumadin per Rx. INR today is 1.9 continue Abx Subjective Allergies: Coded Allergies: No Known Allergies (Unverified , 03/28/17) Subjective No acute event. No reported fever Objective Last 24 Hour Vital Signs Date Time Temp Pulse Resp B/P (MAP) Pulse Ox O2 Delivery O2 Flow Rate FiO2 04/03/17 11:40 97.2 76 20 159/82 97 Nasal Cannula 2.0 04/03/17 08:10 96.9 78 20 131/74 95 Nasal Cannula 2.0 04/03/17 08:00 61 04/03/17 06:53 Nasal Cannula 2.0 04/03/17 06:53 78 20 Nasal Cannula 2.0 04/03/17 06:53 95 Nasal Cannula 2.0 04/03/17 05:56 68 147/68 04/03/17 04:00 64 04/03/17 03:51 96.7 68 20 147/98 Nasal Cannula 04/03/17 00:04 96.7 81 20 141/96 Nasal Cannula 04/03/17 00:04 77 143/84 04/03/17 00:00 76 04/02/17 20:27 96.3 77 20 124/73 100 Nasal Cannula 04/02/17 20:00 79 04/02/17 19:46 Nasal Cannula 2.0 28 04/02/17 19:46 93 Nasal Cannula 2.0 28 04/02/17 19:45 59 20 Nasal Cannula 2.0 28 04/02/17 18:07 77 133/81 04/02/17 16:00 97.9 77 21 133/81 96 Room Air 04/02/17 16:00 79 Laboratory Tests 04/03/17 06:00: Prothrombin Time 19.2H, Prothromb Time International Ratio 1.9H Height (Feet): 5 Height (Inches): 6.00 Weight (Pounds): 146 Objective NAD, confused bilat basilar crackles+ S1,S2,irr/irr, no M/R/G soft, non tender, BS+, PEG+ no edema DODD,SAPNA Apr 03, 2017 13:02
[2017-04-03 15:45] VITALS: BP 131/75
[2017-04-03] MEDS ORDERED: Warfarin Sodium 3mg ORAL ONE (17:00)
[2017-04-03] MEDS: Vancomycin 1gm/D5W 275ml IVPB SCH ×2 (18:06)
[2017-04-03 20:00] VITALS: BP 145/84
--- NOTE | 2017-04-03 20:20 | Infectious Diseases Prog Note ---
Assessment/Plan Assessment/Plan ASSESSMENT AND PLAN: 1. sepsis, fevers, leukocytosis, ? uti, ? aspiration pna/hap vs atx, high aspiration risk - clinically improved, fevers and leukocytosis resolved - change abx to augmentin plus doxycycline oral- day # 7/10 abx - check f/u labs and chest x-ray - pulmonary treatment 2. History of diabetes. 3. Hypertension. 4. Weakness. 5. History of sepsis and pneumonia. 6. Dysphagia, Gastrostomy tube and aspiration risk. 7. History of cerebrospinal fluid drainage. 8. Continue treatment for hypertension and diabetes per primary. 9. Anemia. 10. Gastritis. 11. Decreased gait. 12. Altered mental status. 13. Age-related disability. 14. Dementia. 15. Gastroesophageal reflux disease. 16. Benign prostatic hypertrophy. 17. Normal pressure hydrocephalus. 18. condom catheter 19. Case discussed with Dr. Caraballo. 20. MAR was noted. 21. Case was discussed with RN. 22. Family history is noncontributory. 23. Social history is negative. 24. Orders were noted. 25. Records were reviewed. 26. Continue treatment per primary consultants. 27. Skin care protocol and ICU care. 28. allergies - negative 29. mrsa colonization and isolation Subjective Constitutional: Denies: fever HEENT: Denies: congestion Respiratory: Denies: shortness of breath Cardiovascular: Denies: chest pain Gastrointestinal/Abdominal: Denies: nausea, vomiting, diarrhea Neurologic: Denies: headache Psychiatric: Denies: depression Skin: Denies: rash Hematologic: Denies: bleeding Musculoskeletal: Denies: pain Allergies: Coded Allergies: No Known Allergies (Unverified , 03/28/17) Objective Vital Signs Last 24 Hour Vital Signs Date Time Temp Pulse Resp B/P (MAP) Pulse Ox O2 Delivery O2 Flow Rate FiO2 04/03/17 18:06 84 131/75 04/03/17 16:00 66 04/03/17 15:45 97.0 68 20 131/75 98 Nasal Cannula 2.0 04/03/17 13:15 89 159/82 04/03/17 12:00 92 04/03/17 11:40 97.2 76 20 159/82 97 Nasal Cannula 2.0 04/03/17 08:10 96.9 78 20 131/74 95 Nasal Cannula 2.0 04/03/17 08:00 61 04/03/17 06:53 Nasal Cannula 2.0 04/03/17 06:53 78 20 Nasal Cannula 2.0 04/03/17 06:53 95 Nasal Cannula 2.0 04/03/17 05:56 68 147/68 04/03/17 04:00 64 04/03/17 03:51 96.7 68 20 147/98 Nasal Cannula 04/03/17 00:04 96.7 81 20 141/96 Nasal Cannula 04/03/17 00:04 77 143/84 04/03/17 00:00 76 04/02/17 20:27 96.3 77 20 124/73 100 Nasal Cannula Height (Feet): 5 Height (Inches): 6.00 Weight (Pounds): 146 General Appearance: no acute distress HEENT: normocephalic, atraumatic, anicteric, mucous membranes moist, PERRL, EOMI, pharynx normal, supple, no JVD Respiratory/Chest: lungs clear, normal breath sounds, no respiratory distress, no accessory muscle use, crackles/rales - less, rhonchi - bilaterally - less Cardiovascular: normal rate, regular rhythm, no gallop/murmur, no JVD Abdomen: normal bowel sounds, soft, non tender, no organomegaly, non distended Genitourinary: other - + pierce - urine clear Extremities: no cyanosis Skin: no rash Neurologic/Psychiatric: flat sorter processor II-XII grossly normal, alert, responsive Lymphatic: no neck adenopathy Musculoskeletal: no effusion Objective 03/29 - chest x-ray: IMPRESSION: Element of subsegmental atelectasis left lung base Persistent prominence vascular markings right lung base, likely compressive Stable cardiomegaly Chest x-ray - 03/31 - Findings: The heart is borderline enlarged. Left hemidiaphragm is elevated with probable mild underlying atelectasis without significant change in appearance. Lungs are essentially clear. Impression: No change. Mild elevation of the left hemidiaphragm 04/03 - chest x-ray - nad Microbiology Date/Time Source Procedure Growth Status 03/28/17 13:47 Blood Blood Culture - Final NO GROWTH AFTER 5 DAYS Complete 03/28/17 16:05 Nasal Nares MRSA Culture - Final Staphylococcus Aureus - Mrsa Complete 03/28/17 16:00 Urine,Clean Catch Urine Culture - Final Mixed Urogenital Contaminants Complete 03/28/17 16:05 Rectum VRE Culture - Final NO VANCOMYCIN RESISTANT ENTEROCOCCUS ... Complete Labs Test 04/01/17 05:30 04/01/17 17:00 04/02/17 05:15 04/03/17 06:00 White Blood Count 6.1 K/UL (4.8-10.8) 7.2 K/UL (4.8-10.8) Red Blood Count 3.72 M/UL (4.70-6.10) 3.61 M/UL (4.70-6.10) Hemoglobin 11.8 G/DL (14.2-18.0) 11.3 G/DL (14.2-18.0) Hematocrit 35.4 % (42.0-52.0) 34.5 % (42.0-52.0) Mean Corpuscular Volume 95 FL (80-99) 96 FL (80-99) Mean Corpuscular Hemoglobin 31.8 PG (27.0-31.0) 31.4 PG (27.0-31.0) Mean Corpuscular Hemoglobin Concent 33.4 G/DL (32.0-36.0) 32.8 G/DL (32.0-36.0) Red Cell Distribution Width 15.2 % (11.6-14.8) 15.0 % (11.6-14.8) Platelet Count 165 K/UL (150-450) 167 K/UL (150-450) Mean Platelet Volume 6.1 FL (6.5-10.1) 5.7 FL (6.5-10.1) Neutrophils (%) (Auto) 79.8 % (45.0-75.0) 80.3 % (45.0-75.0) Lymphocytes (%) (Auto) 18.4 % (20.0-45.0) 15.3 % (20.0-45.0) Monocytes (%) (Auto) 1.7 % (1.0-10.0) 3.8 % (1.0-10.0) Eosinophils (%) (Auto) 0.0 % (0.0-3.0) 0.0 % (0.0-3.0) Basophils (%) (Auto) 0.0 % (0.0-2.0) 0.6 % (0.0-2.0) Sodium Level 143 mEQ/L (135-145) 140 mEQ/L (135-145) Potassium Level 3.6 mEQ/L (3.4-4.9) 3.8 mEQ/L (3.4-4.9) Chloride Level 108 mEQ/L (98-107) 105 mEQ/L (98-107) Carbon Dioxide Level 25 mEQ/L (20-30) 25 mEQ/L (20-30) Anion Gap 10 (5-15) 10 (5-15) Blood Urea Nitrogen 35 mg/dL (7-23) 25 mg/dL (7-23) Creatinine 0.8 mg/dL (0.7-1.2) 0.6 mg/dL (0.7-1.2) Estimat Glomerular Filtration Rate mL/min (>60) mL/min (>60) Glucose Level 218 mg/dL (74-106) 172 mg/dL (74-106) Calcium Level 8.2 mg/dL (8.6-10.2) 8.1 mg/dL (8.6-10.2) Phosphorus Level 2.2 mg/dL (2.5-4.8) 2.4 mg/dL (2.5-4.8) Magnesium Level 2.4 mg/dL (1.7-2.5) Prothrombin Time 15.8 SEC (9.30-11.50) 14.8 SEC (9.30-11.50) 19.2 SEC (9.30-11.50) Prothromb Time International Ratio 1.6 (0.9-1.1) 1.5 (0.9-1.1) 1.9 (0.9-1.1) Vancomycin Level Trough 7.2 ug/mL (5.0-12.0) Laboratory Tests Test 04/03/17 06:00 Prothrombin Time 19.2 SEC (9.30-11.50) H Prothromb Time International Ratio 1.9 (0.9-1.1) H Current Medications Medications (Trade) Dose Ordered Sig/Angel Route PRN Reason Start Time Stop Time Status Last Admin Dose Admin Acetaminophen (Tylenol) 650 mg Q4H PRN GT Mild Pain/Temp > 100.5 03/30/17 23:00 04/28/17 10:59 Clotrimazole (Lotrimin) 1 applic TWICE A DAY TOPIC 03/31/17 09:00 04/27/17 17:59 04/03/17 18:06 Dextrose (Dextrose 50%) STAT PRN IV Hypoglycemia 03/30/17 23:02 04/29/17 23:01 Diltiazem HCl (Cardizem) 60 mg EVERY 6 HOURS GT 03/31/17 18:00 04/30/17 17:59 04/03/17 18:06 Ondansetron HCl (Zofran) 4 mg Q6H PRN IVP Nausea & Vomiting 03/30/17 23:04 04/29/17 23:03 Piperacillin Sod/ Tazobactam Sod 3.375 gm/Dextrose 110 ml @ 27.5 mls/hr EVERY 8 HOURS IVPB 04/02/17 22:00 04/07/17 21:59 04/03/17 13:15 Ranitidine HCl (Zantac) 150 mg Q12HR GT 03/31/17 21:00 04/30/17 20:59 04/03/17 09:00 Sodium Chloride 1,000 ml @ 50 mls/hr Q20H IV 03/30/17 23:00 04/27/17 22:59 04/03/17 06:46 Vancomycin HCl (Vanco rx to dose) 1 ea DAILY PRN MISC PRN RX PROTOCOL 03/31/17 09:00 04/27/17 16:29 Vancomycin HCl 1 gm/Dextrose 275 ml @ 183.708 mls/hr Q24H IVPB 04/02/17 18:00 04/07/17 17:59 04/03/17 18:06 Warfarin Sodium (Coumadin per pharmacy) 1 ea DAILY PRN MISC Per rx protocol 04/01/17 13:30 05/01/17 13:29 ZANE DE LEON Apr 03, 2017 20:20
[2017-04-03] MEDS: Augmentin 875mg Tab ORAL SCH (21:21)
[2017-04-04] VITALS: BP 146/79
[2017-04-04 04:00] VITALS: BP 136/94
--- NOTE | 2017-04-04 07:09 | General Progress Note ---
Assessment/Plan Assessment/Plan Aspiration Pneumonia + Sepsis -improving. Rapid A. Fib. - improving INR yesterday 1.9 awaiting today's INR. In CY. Subjective Allergies: Coded Allergies: No Known Allergies (Unverified , 03/28/17) Subjective More alert. Objective Last 24 Hour Vital Signs Date Time Temp Pulse Resp B/P (MAP) Pulse Ox O2 Delivery O2 Flow Rate FiO2 04/04/17 05:24 85 136/94 04/04/17 04:00 97.0 67 136/94 Nasal Cannula 2.0 04/04/17 04:00 62 04/04/17 00:20 90 145/84 04/04/17 00:00 97.3 75 18 146/79 95 Nasal Cannula 2.0 04/04/17 00:00 86 04/03/17 20:00 58 04/03/17 20:00 96.3 59 20 145/84 99 Nasal Cannula 2.0 04/03/17 19:30 92 Nasal Cannula 2.0 28 04/03/17 19:30 64 20 Nasal Cannula 2.0 04/03/17 19:30 Nasal Cannula 2.0 04/03/17 18:06 84 131/75 04/03/17 16:00 66 04/03/17 15:45 97.0 68 20 131/75 98 Nasal Cannula 2.0 04/03/17 13:15 89 159/82 04/03/17 12:00 92 04/03/17 11:40 97.2 76 20 159/82 97 Nasal Cannula 2.0 04/03/17 08:10 96.9 78 20 131/74 95 Nasal Cannula 2.0 04/03/17 08:00 61 Height (Feet): 5 Height (Inches): 6.00 Weight (Pounds): 162 Objective No distress. In CY. CV IRR/IRR Lungs CTA Abd SNT + E No CCE VELIA RESENDIZ Apr 04, 2017 07:09
[2017-04-04 07:34] LABS: BASOPHILS % (AUTO) 0.5 % (0.0-2.0); EOSINOPHILS % (AUTO) 0.8 % (0.0-3.0); LYMPHOCYTES % (AUTO) 17.2 % (20.0-45.0); MEAN CORPUSCULAR HEMOGLOBIN 33.7 PG (27.0-31.0); MEAN CORPUSCULAR HGB CONC 35.2 G/DL (32.0-36.0); MEAN CORPUSCULAR VOLUME 96 FL (80-99); MEAN PLATELET VOLUME 5.9 FL (6.5-10.1); MONOCYTES % (AUTO) 5.3 % (1.0-10.0); NEUTROPHILS % (AUTO) 76.2 % (45.0-75.0); PLATELET COUNT 178 K/UL (150-450); RED BLOOD COUNT 4.05 M/UL (4.70-6.10); RED CELL DISTRIBUTION WIDTH 15.7 % (11.6-14.8)
[2017-04-04 07:51] LABS: ANION GAP 11 (5-15); CALCIUM 8.2 mg/dL (8.6-10.2); CARBON DIOXIDE 28 mEQ/L (20-30); CHLORIDE 96 mEQ/L (98-107); CREATININE 0.7 mg/dL (0.7-1.2); HEMOLYSIS 6; POTASSIUM 3.4 mEQ/L (3.4-4.9); SODIUM 135 mEQ/L (135-145)
[2017-04-04 07:58] LABS: INR 2.4 (0.9-1.1); PROTHROMBIN TIME 24.7 SEC (9.30-11.50)
[2017-04-04 08:00] VITALS: BP 155/92
[2017-04-04] MEDS: Augmentin 875mg Tab ORAL SCH (09:00)
--- NOTE | 2017-04-04 09:03 | Critical Care Progress Note ---
Assessment/Plan Assessment/Plan ASSESSMENT: 1. Respiratory infection, clearing 2. Sepsis syndrome. 3. Significant hypoxemia 4. Chronic atrial fibrillation. 5. Respiratory insufficiency 6. Chronic obstructive pulmonary disease. 7. acute renal insufficiency 8. Hypernatremia 9. Hypoxemia PLAN: 1. stable as is; taper oxygen; cxr negative; none new 2. antibiotics and taper per ID 3.monitor oxygen needs 4. Continue Coumadin per pharmacy protocol. 5. monitor chest Xray PRN 6. dc planning ok per pulmonary medications/laboratory data/nursing notes reviewed in detail note reviewed and edited care discussed with RN and RT Critical Care - Subjective Interval Events: reviewed and noted discussed EKG Rhythm: Sinus Rhythm Critical Care - Objective Last 24 Hour Vital Signs Date Time Temp Pulse Resp B/P (MAP) Pulse Ox O2 Delivery O2 Flow Rate FiO2 04/04/17 08:00 96.6 85 20 155/92 99 Nasal Cannula 2.0 04/04/17 05:24 85 136/94 04/04/17 04:00 97.0 67 136/94 Nasal Cannula 2.0 04/04/17 04:00 62 04/04/17 00:20 90 145/84 04/04/17 00:00 97.3 75 18 146/79 95 Nasal Cannula 2.0 04/04/17 00:00 86 04/03/17 20:00 58 04/03/17 20:00 96.3 59 20 145/84 99 Nasal Cannula 2.0 04/03/17 19:30 92 Nasal Cannula 2.0 04/03/17 19:30 64 20 Nasal Cannula 2.0 04/03/17 19:30 Nasal Cannula 2.0 04/03/17 18:06 84 131/75 04/03/17 16:00 66 04/03/17 15:45 97.0 68 20 131/75 98 Nasal Cannula 2.0 04/03/17 13:15 89 159/82 04/03/17 12:00 92 04/03/17 11:40 97.2 76 20 159/82 97 Nasal Cannula 2.0 Labs: Labs Test 04/01/17 17:00 04/02/17 05:15 04/03/17 06:00 04/04/17 05:10 Prothrombin Time 15.8 SEC (9.30-11.50) 14.8 SEC (9.30-11.50) 19.2 SEC (9.30-11.50) 24.7 SEC (9.30-11.50) Prothromb Time International Ratio 1.6 (0.9-1.1) 1.5 (0.9-1.1) 1.9 (0.9-1.1) 2.4 (0.9-1.1) Vancomycin Level Trough 7.2 ug/mL (5.0-12.0) White Blood Count 7.2 K/UL (4.8-10.8) 7.0 K/UL (4.8-10.8) Red Blood Count 3.61 M/UL (4.70-6.10) 4.05 M/UL (4.70-6.10) Hemoglobin 11.3 G/DL (14.2-18.0) 13.7 G/DL (14.2-18.0) Hematocrit 34.5 % (42.0-52.0) 38.8 % (42.0-52.0) Mean Corpuscular Volume 96 FL (80-99) 96 FL (80-99) Mean Corpuscular Hemoglobin 31.4 PG (27.0-31.0) 33.7 PG (27.0-31.0) Mean Corpuscular Hemoglobin Concent 32.8 G/DL (32.0-36.0) 35.2 G/DL (32.0-36.0) Red Cell Distribution Width 15.0 % (11.6-14.8) 15.7 % (11.6-14.8) Platelet Count 167 K/UL (150-450) 178 K/UL (150-450) Mean Platelet Volume 5.7 FL (6.5-10.1) 5.9 FL (6.5-10.1) Neutrophils (%) (Auto) 80.3 % (45.0-75.0) 76.2 % (45.0-75.0) Lymphocytes (%) (Auto) 15.3 % (20.0-45.0) 17.2 % (20.0-45.0) Monocytes (%) (Auto) 3.8 % (1.0-10.0) 5.3 % (1.0-10.0) Eosinophils (%) (Auto) 0.0 % (0.0-3.0) 0.8 % (0.0-3.0) Basophils (%) (Auto) 0.6 % (0.0-2.0) 0.5 % (0.0-2.0) Sodium Level 140 mEQ/L (135-145) 135 mEQ/L (135-145) Potassium Level 3.8 mEQ/L (3.4-4.9) 3.4 mEQ/L (3.4-4.9) Chloride Level 105 mEQ/L (98-107) 96 mEQ/L (98-107) Carbon Dioxide Level 25 mEQ/L (20-30) 28 mEQ/L (20-30) Anion Gap 10 (5-15) 11 (5-15) Blood Urea Nitrogen 25 mg/dL (7-23) 17 mg/dL (7-23) Creatinine 0.6 mg/dL (0.7-1.2) 0.7 mg/dL (0.7-1.2) Estimat Glomerular Filtration Rate mL/min (>60) mL/min (>60) Glucose Level 172 mg/dL (74-106) 104 mg/dL (74-106) Calcium Level 8.1 mg/dL (8.6-10.2) 8.2 mg/dL (8.6-10.2) Phosphorus Level 2.4 mg/dL (2.5-4.8) Objective: WDWN NAD reduced LOC clear breath sounds bilaterally without rhonchi or wheeze [id number] without MRG NABS nontender no HSM no CCE nonfocal weak overall on oxygen FAY LLANOS Apr 04, 2017 09:03
--- NOTE | 2017-04-04 10:42 | GI Progress Note ---
Assessment/Plan Problems: (1) G tube feedings ICD Codes: Z93.1 - Gastrostomy status SNOMED: 543126202, 196237494 (2) PEG (percutaneous endoscopic gastrostomy) adjustment/replacement/removal ICD Codes: Z43.1 - Encounter for attention to gastrostomy SNOMED: 867622989, 212044257 (3) Anemia ICD Codes: D64.9 - Anemia, unspecified SNOMED: 648855338 Status: stable Status Narrative Discussed with Dr. Ayers. Assessment/Plan OB stool positive GT replaced with 20 fr >> KUB confirmed, okay to use. GT site care daily/prn fu cdiff, consider Imodium after sample collected GTFs per dietary monitor H&H, prn transfusions ppi abx fu labs Subjective Subjective limited Objective Last 24 Hour Vital Signs Date Time Temp Pulse Resp B/P (MAP) Pulse Ox O2 Delivery O2 Flow Rate FiO2 04/04/17 08:05 72 20 Nasal Cannula 2.0 04/04/17 08:05 93 Nasal Cannula 2.0 04/04/17 08:05 Nasal Cannula 2.0 04/04/17 08:00 75 04/04/17 08:00 96.6 85 20 155/92 99 Nasal Cannula 2.0 04/04/17 05:24 85 136/94 04/04/17 04:00 97.0 67 136/94 Nasal Cannula 2.0 04/04/17 04:00 62 04/04/17 00:20 90 145/84 04/04/17 00:00 97.3 75 18 146/79 95 Nasal Cannula 2.0 04/04/17 00:00 86 04/03/17 20:00 58 04/03/17 20:00 96.3 59 20 145/84 99 Nasal Cannula 2.0 04/03/17 19:30 92 Nasal Cannula 2.0 04/03/17 19:30 64 20 Nasal Cannula 2.0 28 04/03/17 19:30 Nasal Cannula 2.0 28 04/03/17 18:06 84 131/75 04/03/17 16:00 66 04/03/17 15:45 97.0 68 20 131/75 98 Nasal Cannula 2.0 04/03/17 13:15 89 159/82 04/03/17 12:00 92 04/03/17 11:40 97.2 76 20 159/82 97 Nasal Cannula 2.0 Laboratory Tests Test 04/04/17 05:10 White Blood Count 7.0 K/UL (4.8-10.8) Red Blood Count 4.05 M/UL (4.70-6.10) L Hemoglobin 13.7 G/DL (14.2-18.0) L Hematocrit 38.8 % (42.0-52.0) L Mean Corpuscular Volume 96 FL (80-99) Mean Corpuscular Hemoglobin 33.7 PG (27.0-31.0) H Mean Corpuscular Hemoglobin Concent 35.2 G/DL (32.0-36.0) Red Cell Distribution Width 15.7 % (11.6-14.8) H Platelet Count 178 K/UL (150-450) Mean Platelet Volume 5.9 FL (6.5-10.1) L Neutrophils (%) (Auto) 76.2 % (45.0-75.0) H Lymphocytes (%) (Auto) 17.2 % (20.0-45.0) L Monocytes (%) (Auto) 5.3 % (1.0-10.0) Eosinophils (%) (Auto) 0.8 % (0.0-3.0) Basophils (%) (Auto) 0.5 % (0.0-2.0) Prothrombin Time 24.7 SEC (9.30-11.50) H Prothromb Time International Ratio 2.4 (0.9-1.1) H Sodium Level 135 mEQ/L (135-145) Potassium Level 3.4 mEQ/L (3.4-4.9) Chloride Level 96 mEQ/L (98-107) L Carbon Dioxide Level 28 mEQ/L (20-30) Anion Gap 11 (5-15) Blood Urea Nitrogen 17 mg/dL (7-23) Creatinine 0.7 mg/dL (0.7-1.2) Estimat Glomerular Filtration Rate mL/min (>60) Glucose Level 104 mg/dL (74-106) Calcium Level 8.2 mg/dL (8.6-10.2) L Height (Feet): 5 Height (Inches): 6.00 Weight (Pounds): 162 General Appearance: no apparent distress, alert Cardiovascular: normal rate Respiratory/Chest: normal breath sounds, no respiratory distress, other - 2LNC Abdominal Exam: soft, GT site - c/d/i Evy Stephen N.P. Apr 04, 2017 10:42
[2017-04-04 12:00] VITALS: BP 143/81
[2017-04-04 16:02] VITALS: BP 145/77
--- NOTE | 2017-04-04 16:34 | Infectious Diseases Prog Note ---
Assessment/Plan Assessment/Plan ASSESSMENT AND PLAN: 1. sepsis, fevers, leukocytosis, ? uti, ? aspiration pna/hap vs atx, high aspiration risk - clinically improved, fevers and leukocytosis resolved - augmentin plus doxycycline oral- day # 8/10 abx - check f/u labs and chest x-ray - pulmonary treatment 2. History of diabetes. 3. Hypertension. 4. Weakness. 5. History of sepsis and pneumonia. 6. Dysphagia, Gastrostomy tube and aspiration risk. 7. History of cerebrospinal fluid drainage. 8. Continue treatment for hypertension and diabetes per primary. 9. Anemia. 10. Gastritis. 11. Decreased gait. 12. Altered mental status. 13. Age-related disability. 14. Dementia. 15. Gastroesophageal reflux disease. 16. Benign prostatic hypertrophy. 17. Normal pressure hydrocephalus. 18. condom catheter 19. Case discussed with Dr. Caraballo. 20. MAR was noted. 21. Case was discussed with RN. 22. Family history is noncontributory. 23. Social history is negative. 24. Orders were noted. 25. Records were reviewed. 26. Continue treatment per primary consultants. 27. Skin care protocol and ICU care. 28. allergies - negative 29. mrsa colonization and isolation Subjective Constitutional: Denies: fever HEENT: Reports: congestion - mild Respiratory: Denies: shortness of breath Cardiovascular: Denies: chest pain Gastrointestinal/Abdominal: Denies: nausea, vomiting, diarrhea Genitourinary: Reports: other - + pierce Neurologic: Denies: headache Psychiatric: Denies: depression Skin: Denies: rash Hematologic: Denies: bleeding Musculoskeletal: Denies: pain Allergies: Coded Allergies: No Known Allergies (Unverified , 03/28/17) Objective Vital Signs Last 24 Hour Vital Signs Date Time Temp Pulse Resp B/P (MAP) Pulse Ox O2 Delivery O2 Flow Rate FiO2 04/04/17 16:02 96.1 75 20 145/77 98 Nasal Cannula 2.0 04/04/17 16:00 64 04/04/17 12:19 72 146/76 04/04/17 12:00 96.6 79 18 143/81 97 Nasal Cannula 2.0 04/04/17 12:00 77 04/04/17 08:05 72 20 Nasal Cannula 2.0 28 04/04/17 08:05 93 Nasal Cannula 2.0 28 04/04/17 08:05 Nasal Cannula 2.0 04/04/17 08:00 75 04/04/17 08:00 96.6 85 20 155/92 99 Nasal Cannula 2.0 04/04/17 05:24 85 136/94 04/04/17 04:00 97.0 67 136/94 Nasal Cannula 2.0 04/04/17 04:00 62 04/04/17 00:20 90 145/84 04/04/17 00:00 97.3 75 18 146/79 95 Nasal Cannula 2.0 04/04/17 00:00 86 04/03/17 20:00 58 04/03/17 20:00 96.3 59 20 145/84 99 Nasal Cannula 2.0 04/03/17 19:30 92 Nasal Cannula 2.0 04/03/17 19:30 64 20 Nasal Cannula 2.0 04/03/17 19:30 Nasal Cannula 2.0 04/03/17 18:06 84 131/75 Height (Feet): 5 Height (Inches): 6.00 Weight (Pounds): 162 General Appearance: no acute distress HEENT: normocephalic, atraumatic, anicteric, mucous membranes moist, EOMI, pharynx normal, supple, no JVD Respiratory/Chest: no respiratory distress, respiratory distress, rhonchi - bilaterally Cardiovascular: normal rate, regular rhythm, no gallop/murmur, no JVD Abdomen: normal bowel sounds, soft, non tender, no organomegaly, non distended Genitourinary: other - + pierce - urine clear Extremities: no cyanosis Skin: no rash Neurologic/Psychiatric: mica patcher II-XII grossly normal, alert, responsive Lymphatic: no neck adenopathy Musculoskeletal: no effusion Objective 03/29 - chest x-ray: IMPRESSION: Element of subsegmental atelectasis left lung base Persistent prominence vascular markings right lung base, likely compressive Stable cardiomegaly Chest x-ray - 03/31 - Findings: The heart is borderline enlarged. Left hemidiaphragm is elevated with probable mild underlying atelectasis without significant change in appearance. Lungs are essentially clear. Impression: No change. Mild elevation of the left hemidiaphragm 04/03 - chest x-ray - nad Microbiology Date/Time Source Procedure Growth Status 03/28/17 13:47 Blood Blood Culture - Final NO GROWTH AFTER 5 DAYS Complete 03/28/17 16:05 Nasal Nares MRSA Culture - Final Staphylococcus Aureus - Mrsa Complete 03/28/17 16:00 Urine,Clean Catch Urine Culture - Final Mixed Urogenital Contaminants Complete 03/28/17 16:05 Rectum VRE Culture - Final NO VANCOMYCIN RESISTANT ENTEROCOCCUS ... Complete Laboratory Tests Test 04/04/17 05:10 White Blood Count 7.0 K/UL (4.8-10.8) Red Blood Count 4.05 M/UL (4.70-6.10) L Hemoglobin 13.7 G/DL (14.2-18.0) L Hematocrit 38.8 % (42.0-52.0) L Mean Corpuscular Volume 96 FL (80-99) Mean Corpuscular Hemoglobin 33.7 PG (27.0-31.0) H Mean Corpuscular Hemoglobin Concent 35.2 G/DL (32.0-36.0) Red Cell Distribution Width 15.7 % (11.6-14.8) H Platelet Count 178 K/UL (150-450) Mean Platelet Volume 5.9 FL (6.5-10.1) L Neutrophils (%) (Auto) 76.2 % (45.0-75.0) H Lymphocytes (%) (Auto) 17.2 % (20.0-45.0) L Monocytes (%) (Auto) 5.3 % (1.0-10.0) Eosinophils (%) (Auto) 0.8 % (0.0-3.0) Basophils (%) (Auto) 0.5 % (0.0-2.0) Prothrombin Time 24.7 SEC (9.30-11.50) H Prothromb Time International Ratio 2.4 (0.9-1.1) H Sodium Level 135 mEQ/L (135-145) Potassium Level 3.4 mEQ/L (3.4-4.9) Chloride Level 96 mEQ/L (98-107) L Carbon Dioxide Level 28 mEQ/L (20-30) Anion Gap 11 (5-15) Blood Urea Nitrogen 17 mg/dL (7-23) Creatinine 0.7 mg/dL (0.7-1.2) Estimat Glomerular Filtration Rate mL/min (>60) Glucose Level 104 mg/dL (74-106) Calcium Level 8.2 mg/dL (8.6-10.2) L Current Medications Medications (Trade) Dose Ordered Sig/Angel Route PRN Reason Start Time Stop Time Status Last Admin Dose Admin Acetaminophen (Tylenol) 650 mg Q4H PRN GT Mild Pain/Temp > 100.5 03/30/17 23:00 04/28/17 10:59 Amoxicillin/ Clavulanate Potassium (Augmentin) 875 mg EVERY 12 HOURS GT 04/04/17 21:00 04/10/17 20:59 Clotrimazole (Lotrimin) 1 applic TWICE A DAY TOPIC 03/31/17 09:00 04/27/17 17:59 04/04/17 09:00 Dextrose (Dextrose 50%) STAT PRN IV Hypoglycemia 03/30/17 23:02 04/29/17 23:01 Diltiazem HCl (Cardizem) 60 mg EVERY 6 HOURS GT 03/31/17 18:00 04/30/17 17:59 04/04/17 12:19 Doxycycline Monohydrate (Vibramycin) 100 mg EVERY 12 HOURS ORAL 04/03/17 21:00 04/10/17 20:59 04/04/17 09:00 Ondansetron HCl (Zofran) 4 mg Q6H PRN IVP Nausea & Vomiting 03/30/17 23:04 04/29/17 23:03 Ranitidine HCl (Zantac) 150 mg Q12HR GT 03/31/17 21:00 04/30/17 20:59 04/04/17 09:00 Sodium Chloride 1,000 ml @ 50 mls/hr Q20H IV 03/30/17 23:00 04/27/17 22:59 04/04/17 05:25 Warfarin Sodium (Coumadin per pharmacy) 1 ea DAILY PRN MISC Per rx protocol 04/01/17 13:30 05/01/17 13:29 Warfarin Sodium (Coumadin) 4 mg COUMADIN ONCE PO 04/04/17 17:00 04/04/17 17:01 ZANE DE LEON Apr 04, 2017 16:34
[2017-04-04] MEDS ORDERED: Warfarin Sodium 4mg PO ONE (17:00)
--- NOTE | 2017-04-04 17:05 | Cardiology Progress Note ---
Assessment/Plan Assessment/Plan atrial fibrillation, better controlled on cardizem continue diltiazem every 6 hours echo results noted, EF is normal The patient is therapeutic on Coumadin, INR today 2.4, coumadin dose is managed by pharmacy the patient remains comatose, despite on treatment of sepsis stable from cardiac standpoint Subjective Subjective the patient looks slightly more alert, moaning and possibly reacting to enviroment Objective Last 24 Hour Vital Signs Date Time Temp Pulse Resp B/P (MAP) Pulse Ox O2 Delivery O2 Flow Rate FiO2 04/04/17 16:02 96.1 75 20 145/77 98 Nasal Cannula 2.0 04/04/17 16:00 64 04/04/17 12:19 72 146/76 04/04/17 12:00 96.6 79 18 143/81 97 Nasal Cannula 2.0 04/04/17 12:00 77 04/04/17 08:05 72 20 Nasal Cannula 2.0 04/04/17 08:05 93 Nasal Cannula 2.0 04/04/17 08:05 Nasal Cannula 2.0 04/04/17 08:00 75 04/04/17 08:00 96.6 85 20 155/92 99 Nasal Cannula 2.0 04/04/17 05:24 85 136/94 04/04/17 04:00 97.0 67 136/94 Nasal Cannula 2.0 04/04/17 04:00 62 04/04/17 00:20 90 145/84 04/04/17 00:00 97.3 75 18 146/79 95 Nasal Cannula 2.0 04/04/17 00:00 86 04/03/17 20:00 58 04/03/17 20:00 96.3 59 20 145/84 99 Nasal Cannula 2.0 04/03/17 19:30 92 Nasal Cannula 2.0 04/03/17 19:30 64 20 Nasal Cannula 2.0 04/03/17 19:30 Nasal Cannula 2.0 04/03/17 18:06 84 131/75 General Appearance: lethargic EENT: other - facial droop Neck: no JVD Rhythm: Afib Cardiovascular: normal rate Respiratory/Chest: crackles/rales - only at bases Abdomen: normal bowel sounds Extremities: other - not moving, contracted Intake and Output 04/04/17 04/05/17 19:00 07:00 Intake Total 735 ml Output Total 400 ml Balance 335 ml IV Total 350 ml Tube Feeding 385 ml Output Urine Total 400 ml Laboratory Tests Test 04/04/17 05:10 White Blood Count 7.0 K/UL (4.8-10.8) Red Blood Count 4.05 M/UL (4.70-6.10) L Hemoglobin 13.7 G/DL (14.2-18.0) L Hematocrit 38.8 % (42.0-52.0) L Mean Corpuscular Volume 96 FL (80-99) Mean Corpuscular Hemoglobin 33.7 PG (27.0-31.0) H Mean Corpuscular Hemoglobin Concent 35.2 G/DL (32.0-36.0) Red Cell Distribution Width 15.7 % (11.6-14.8) H Platelet Count 178 K/UL (150-450) Mean Platelet Volume 5.9 FL (6.5-10.1) L Neutrophils (%) (Auto) 76.2 % (45.0-75.0) H Lymphocytes (%) (Auto) 17.2 % (20.0-45.0) L Monocytes (%) (Auto) 5.3 % (1.0-10.0) Eosinophils (%) (Auto) 0.8 % (0.0-3.0) Basophils (%) (Auto) 0.5 % (0.0-2.0) Prothrombin Time 24.7 SEC (9.30-11.50) H Prothromb Time International Ratio 2.4 (0.9-1.1) H Sodium Level 135 mEQ/L (135-145) Potassium Level 3.4 mEQ/L (3.4-4.9) Chloride Level 96 mEQ/L (98-107) L Carbon Dioxide Level 28 mEQ/L (20-30) Anion Gap 11 (5-15) Blood Urea Nitrogen 17 mg/dL (7-23) Creatinine 0.7 mg/dL (0.7-1.2) Estimat Glomerular Filtration Rate mL/min (>60) Glucose Level 104 mg/dL (74-106) Calcium Level 8.2 mg/dL (8.6-10.2) NOBLE YORK Apr 04, 2017 17:05
[2017-04-04 20:20] VITALS: BP 143/79
[2017-04-04] MEDS: Augmentin 875mg Tab GT SCH (20:50)
[2017-04-05] VITALS (7 sets, daily range): BP systolic 124–145; BP diastolic 70–94
[2017-04-05 06:47] LABS: INR 2.7 (0.9-1.1); PROTHROMBIN TIME 28.3 SEC (9.30-11.50)
[2017-04-05 06:51] LABS: BASOPHILS % (AUTO) 0.4 % (0.0-2.0); EOSINOPHILS % (AUTO) 1.3 % (0.0-3.0); LYMPHOCYTES % (AUTO) 16.8 % (20.0-45.0); MEAN CORPUSCULAR HEMOGLOBIN 31.7 PG (27.0-31.0); MEAN CORPUSCULAR HGB CONC 33.8 G/DL (32.0-36.0); MEAN CORPUSCULAR VOLUME 94 FL (80-99); MEAN PLATELET VOLUME 5.9 FL (6.5-10.1); MONOCYTES % (AUTO) 6.1 % (1.0-10.0); NEUTROPHILS % (AUTO) 75.4 % (45.0-75.0); PLATELET COUNT 163 K/UL (150-450); RED BLOOD COUNT 4.15 M/UL (4.70-6.10); RED CELL DISTRIBUTION WIDTH 15.2 % (11.6-14.8); WHITE BLOOD COUNT 6.5 K/UL (4.8-10.8)
[2017-04-05 06:57] LABS: ANION GAP 10 (5-15); CALCIUM 8.3 mg/dL (8.6-10.2); CARBON DIOXIDE 28 mEQ/L (20-30); CHLORIDE 98 mEQ/L (98-107); CREATININE 0.7 mg/dL (0.7-1.2); HEMOLYSIS 6; POTASSIUM 3.8 mEQ/L (3.4-4.9); SODIUM 136 mEQ/L (135-145)
[2017-04-05] MEDS: Augmentin 875mg Tab GT SCH ×2 (09:18→22:24)
--- NOTE | 2017-04-05 09:20 | Critical Care Progress Note ---
Assessment/Plan Assessment/Plan ASSESSMENT: 1. Respiratory infection, clearing 2. Sepsis syndrome. 3. Significant hypoxemia 4. Chronic atrial fibrillation. 5. Respiratory insufficiency 6. Chronic obstructive pulmonary disease. 7. acute renal insufficiency 8. Hypernatremia 9. Hypoxemia PLAN: 1. monitor and recommend; pulmonary care reviewed in detail 2. antibiotics and taper per ID 3.monitor oxygen needs 4. Continue Coumadin per pharmacy protocol. 5. monitor chest Xray PRN 6. dc planning ok per pulmonary medications/laboratory data/nursing notes reviewed in detail note reviewed and edited care discussed with RN and RT Critical Care - Subjective EKG Rhythm: Sinus Rhythm I&O: care noted stable at present cards discussed Critical Care - Objective Last 24 Hour Vital Signs Date Time Temp Pulse Resp B/P (MAP) Pulse Ox O2 Delivery O2 Flow Rate FiO2 04/05/17 06:23 78 133/79 04/05/17 04:00 72 04/05/17 04:00 97.0 64 20 133/79 98 Nasal Cannula 2.0 04/05/17 00:12 97.3 64 20 143/94 97 Nasal Cannula 04/05/17 00:00 85 04/04/17 23:43 85 143/94 04/04/17 20:20 97.7 62 20 143/79 100 Nasal Cannula 2.0 04/04/17 20:00 72 04/04/17 19:30 66 20 Nasal Cannula 2.0 04/04/17 19:30 Nasal Cannula 2.0 28 04/04/17 19:30 96 Nasal Cannula 2.0 04/04/17 17:33 68 145/74 04/04/17 16:02 96.1 75 20 145/77 98 Nasal Cannula 2.0 04/04/17 16:00 64 04/04/17 12:19 72 146/76 04/04/17 12:00 96.6 79 18 143/81 97 Nasal Cannula 2.0 04/04/17 12:00 77 Objective: WDWN NAD reduced LOC clear breath sounds bilaterally without rhonchi or wheeze [id number] without MRG NABS nontender no HSM no CCE nonfocal weak overall on oxygen FAY LLANOS Apr 05, 2017 09:20
[2017-04-05] MEDS ORDERED: Sterile Water Irrig 1000ml IRRIG ONE (09:42)
[2017-04-05] MEDS ORDERED: 1/2 NS 1000ml IV ONE (09:42)
[2017-04-05] MEDS ORDERED: NS 275ml ONE (09:42)
[2017-04-05] MEDS ORDERED: Tubing IV Secondary IV ONE (09:42)
--- NOTE | 2017-04-05 10:52 | GI Progress Note ---
Assessment/Plan Problems: (1) G tube feedings ICD Codes: Z93.1 - Gastrostomy status SNOMED: 966852158, 520002301 (2) PEG (percutaneous endoscopic gastrostomy) adjustment/replacement/removal ICD Codes: Z43.1 - Encounter for attention to gastrostomy SNOMED: 632435020, 412360272 (3) Anemia ICD Codes: D64.9 - Anemia, unspecified SNOMED: 904700121 Status: stable, unchanged Status Narrative Discussed with Dr. Ayers. Assessment/Plan OB stool positive GT replaced with 20 fr >> KUB confirmed, okay to use. stable H&H GT site care daily/prn GTFs per dietary monitor H&H, prn transfusions ppi abx fu labs Subjective Subjective limited Objective Last 24 Hour Vital Signs Date Time Temp Pulse Resp B/P (MAP) Pulse Ox O2 Delivery O2 Flow Rate FiO2 04/05/17 08:00 96.1 82 19 143/78 96 Nasal Cannula 2.0 04/05/17 06:23 78 133/79 04/05/17 04:00 72 04/05/17 04:00 97.0 64 20 133/79 98 Nasal Cannula 2.0 04/05/17 00:12 97.3 64 20 143/94 97 Nasal Cannula 04/05/17 00:00 85 04/04/17 23:43 85 143/94 04/04/17 20:20 97.7 62 20 143/79 100 Nasal Cannula 2.0 04/04/17 20:00 72 04/04/17 19:30 66 20 Nasal Cannula 2.0 04/04/17 19:30 Nasal Cannula 2.0 04/04/17 19:30 96 Nasal Cannula 2.0 28 04/04/17 17:33 68 145/74 04/04/17 16:02 96.1 75 20 145/77 98 Nasal Cannula 2.0 04/04/17 16:00 64 04/04/17 12:19 72 146/76 04/04/17 12:00 96.6 79 18 143/81 97 Nasal Cannula 2.0 04/04/17 12:00 77 Intake and Output 04/05/17 04/06/17 19:00 07:00 Intake Total 200 ml Balance 200 ml IV Total 200 ml Laboratory Tests Test 8/29/17 06:00 White Blood Count 6.5 K/UL (4.8-10.8) Red Blood Count 4.15 M/UL (4.70-6.10) L Hemoglobin 13.2 G/DL (14.2-18.0) L Hematocrit 39.0 % (42.0-52.0) L Mean Corpuscular Volume 94 FL (80-99) Mean Corpuscular Hemoglobin 31.7 PG (27.0-31.0) H Mean Corpuscular Hemoglobin Concent 33.8 G/DL (32.0-36.0) Red Cell Distribution Width 15.2 % (11.6-14.8) H Platelet Count 163 K/UL (150-450) Mean Platelet Volume 5.9 FL (6.5-10.1) L Neutrophils (%) (Auto) 75.4 % (45.0-75.0) H Lymphocytes (%) (Auto) 16.8 % (20.0-45.0) L Monocytes (%) (Auto) 6.1 % (1.0-10.0) Eosinophils (%) (Auto) 1.3 % (0.0-3.0) Basophils (%) (Auto) 0.4 % (0.0-2.0) Prothrombin Time 28.3 SEC (9.30-11.50) H Prothromb Time International Ratio 2.7 (0.9-1.1) H Sodium Level 136 mEQ/L (135-145) Potassium Level 3.8 mEQ/L (3.4-4.9) Chloride Level 98 mEQ/L (98-107) Carbon Dioxide Level 28 mEQ/L (20-30) Anion Gap 10 (5-15) Blood Urea Nitrogen 17 mg/dL (7-23) Creatinine 0.7 mg/dL (0.7-1.2) Estimat Glomerular Filtration Rate mL/min (>60) Glucose Level 102 mg/dL (74-106) Calcium Level 8.3 mg/dL (8.6-10.2) L Height (Feet): 5 Height (Inches): 6.00 Weight (Pounds): 161 General Appearance: no apparent distress Cardiovascular: normal rate Respiratory/Chest: no respiratory distress Abdominal Exam: GT site - c/d/i Evy Stephen N.PHenrietta Apr 05, 2017 10:52
--- NOTE | 2017-04-05 12:25 | Diagnostic Imaging Report ---
Indication: Dyspnea Comparison: 04/03/17 A single view chest radiograph was obtained. Findings: Bones are osteopenic. Aorta is ectatic. The heart is borderline enlarged. Lungs are essentially clear. Impression: No acute disease
--- NOTE | 2017-04-05 13:39 | General Progress Note ---
Assessment/Plan Assessment/Plan Aspiration Pneumonia + Sepsis -improving. Rapid A. Fib. - improving INR today 2.7 DC to SNF. Subjective Allergies: Coded Allergies: No Known Allergies (Unverified , 03/28/17) Subjective More alert. Objective Last 24 Hour Vital Signs Date Time Temp Pulse Resp B/P (MAP) Pulse Ox O2 Delivery O2 Flow Rate FiO2 04/05/17 12:06 72 117/71 04/05/17 12:00 76 04/05/17 12:00 96.4 78 21 145/88 96 Nasal Cannula 1.0 04/05/17 08:00 96.1 82 19 143/78 96 Nasal Cannula 2.0 04/05/17 08:00 77 04/05/17 06:23 78 133/79 04/05/17 04:00 72 04/05/17 04:00 97.0 64 20 133/79 98 Nasal Cannula 2.0 04/05/17 00:12 97.3 64 20 143/94 97 Nasal Cannula 04/05/17 00:00 85 04/04/17 23:43 85 143/94 04/04/17 20:20 97.7 62 20 143/79 100 Nasal Cannula 2.0 04/04/17 20:00 72 04/04/17 19:30 66 20 Nasal Cannula 2.0 04/04/17 19:30 Nasal Cannula 2.0 28 04/04/17 19:30 96 Nasal Cannula 2.0 28 04/04/17 17:33 68 145/74 04/04/17 16:02 96.1 75 20 145/77 98 Nasal Cannula 2.0 04/04/17 16:00 64 Intake and Output 04/05/17 04/06/17 19:00 07:00 Intake Total 200 ml Balance 200 ml IV Total 200 ml Laboratory Tests 04/05/17 06:00: White Blood Count 6.5, Red Blood Count 4.15L, Hemoglobin 13.2L, Hematocrit 39.0L , Mean Corpuscular Volume 94, Mean Corpuscular Hemoglobin 31.7H, Mean Corpuscular Hemoglobin Concent 33.8, Red Cell Distribution Width 15.2H, Platelet Count 163, Mean Platelet Volume 5.9L, Neutrophils (%) (Auto) 75.4H, Lymphocytes (%) (Auto) 16.8L, Monocytes (%) (Auto) 6.1, Eosinophils (%) (Auto) 1.3, Basophils (%) (Auto) 0.4, Prothrombin Time 28.3H, Prothromb Time International Ratio 2.7H, Sodium Level 136, Potassium Level 3.8, Chloride Level 98, Carbon Dioxide Level 28, Anion Gap 10, Blood Urea Nitrogen 17, Creatinine 0.7, Estimat Glomerular Filtration Rate , Glucose Level 102, Calcium Level 8.3L Height (Feet): 5 Height (Inches): 6.00 Weight (Pounds): 161 Objective No distress. In CY. CV IRR/IRR Lungs CTA Abd SNT + E No CCE VELIA RESENDIZ Apr 05, 2017 13:39
[2017-04-05] MEDS ORDERED: COUMADIN2.5 MG ORAL (13:42)
[2017-04-05] MEDS ORDERED: RANITIDINE HCL150 MG GT (13:42)
[2017-04-05] MEDS ORDERED: CARDIZEM60 MG GT (13:42)
[2017-04-05] MEDS ORDERED: TYLENOL650 MG/20. GT (13:42)
[2017-04-05] MEDS ORDERED: Warfarin Sodium 2.5mg ORAL SCH (17:00)
--- NOTE | 2017-04-05 21:20 | Cardiology Progress Note ---
Assessment/Plan Assessment/Plan atrial fibrillation, better controlled on cardizem continue diltiazem every 6 hours echo results noted, EF is normal The patient is therapeutic on Coumadin, INR today 2.4, coumadin dose is managed by pharmacy the patient remains comatose, despite on treatment of sepsis stable from cardiac standpoint Subjective Subjective no significant changes, contact with the patient absent Objective Last 24 Hour Vital Signs Date Time Temp Pulse Resp B/P (MAP) Pulse Ox O2 Delivery O2 Flow Rate FiO2 04/05/17 20:36 97.1 73 21 129/73 Nasal Cannula 04/05/17 19:30 94 Nasal Cannula 2.0 04/05/17 19:30 74 20 Nasal Cannula 2.0 04/05/17 19:30 Nasal Cannula 2.0 04/05/17 17:57 76 133/70 04/05/17 16:00 96.8 76 23 133/70 95 Nasal Cannula 1.0 04/05/17 16:00 73 04/05/17 12:06 72 117/71 04/05/17 12:00 76 04/05/17 12:00 96.4 78 21 145/88 96 Nasal Cannula 1.0 04/05/17 08:00 96.1 82 19 143/78 96 Nasal Cannula 2.0 04/05/17 08:00 77 04/05/17 06:23 78 133/79 04/05/17 04:00 72 04/05/17 04:00 97.0 64 20 133/79 98 Nasal Cannula 2.0 04/05/17 00:12 97.3 64 20 143/94 97 Nasal Cannula 04/05/17 00:00 85 04/04/17 23:43 85 143/94 General Appearance: other - obtunded EENT: other - fACIAL DROOP Neck: no JVD Rhythm: Afib Cardiovascular: normal rate Respiratory/Chest: decreased breath sounds Abdomen: non tender, other - GTUBE Extremities: non-tender Intake and Output 04/05/17 04/06/17 19:00 07:00 Intake Total 550 ml Output Total 1600 ml Balance -1050 ml IV Total 550 ml Output Urine Total 1600 ml Laboratory Tests Test 04/05/17 06:00 White Blood Count 6.5 K/UL (4.8-10.8) Red Blood Count 4.15 M/UL (4.70-6.10) L Hemoglobin 13.2 G/DL (14.2-18.0) L Hematocrit 39.0 % (42.0-52.0) L Mean Corpuscular Volume 94 FL (80-99) Mean Corpuscular Hemoglobin 31.7 PG (27.0-31.0) H Mean Corpuscular Hemoglobin Concent 33.8 G/DL (32.0-36.0) Red Cell Distribution Width 15.2 % (11.6-14.8) H Platelet Count 163 K/UL (150-450) Mean Platelet Volume 5.9 FL (6.5-10.1) L Neutrophils (%) (Auto) 75.4 % (45.0-75.0) H Lymphocytes (%) (Auto) 16.8 % (20.0-45.0) L Monocytes (%) (Auto) 6.1 % (1.0-10.0) Eosinophils (%) (Auto) 1.3 % (0.0-3.0) Basophils (%) (Auto) 0.4 % (0.0-2.0) Prothrombin Time 28.3 SEC (9.30-11.50) H Prothromb Time International Ratio 2.7 (0.9-1.1) H Sodium Level 136 mEQ/L (135-145) Potassium Level 3.8 mEQ/L (3.4-4.9) Chloride Level 98 mEQ/L (98-107) Carbon Dioxide Level 28 mEQ/L (20-30) Anion Gap 10 (5-15) Blood Urea Nitrogen 17 mg/dL (7-23) Creatinine 0.7 mg/dL (0.7-1.2) Estimat Glomerular Filtration Rate mL/min (>60) Glucose Level 102 mg/dL (74-106) Calcium Level 8.3 mg/dL (8.6-10.2) NOBLE YORK Apr 05, 2017 21:20
[2017-04-06 04:31] VITALS: BP 160/68
--- NOTE | 2017-04-06 06:51 | Critical Care Progress Note ---
Assessment/Plan Assessment/Plan ASSESSMENT: 1. Respiratory infection, clearing 2. Sepsis syndrome. 3. Significant hypoxemia 4. Chronic atrial fibrillation. 5. Respiratory insufficiency 6. Chronic obstructive pulmonary disease. 7. acute renal insufficiency 8. Hypernatremia 9. Hypoxemia PLAN: 1. optimize care 2. antibiotics per ID 3.monitor oxygen needs- stable at present 4. Continue Coumadin per pharmacy protocol. 5. monitor chest Xray PRN (reviewed and negative) 6. dc planning ok per pulmonary medications/laboratory data/nursing notes reviewed in detail note reviewed and edited care discussed with RN and RT Critical Care - Subjective Interval Events: care noted minimal cough and congestion EKG Rhythm: Sinus Rhythm Critical Care - Objective Last 24 Hour Vital Signs Date Time Temp Pulse Resp B/P (MAP) Pulse Ox O2 Delivery O2 Flow Rate FiO2 04/06/17 06:05 98 153/75 04/06/17 04:31 97.2 68 21 160/68 96 Room Air 04/06/17 04:00 93 04/06/17 00:14 75 124/62 04/06/17 00:00 78 04/05/17 23:51 97.8 124 20 124/70 95 Nasal Cannula 04/05/17 20:36 97.1 73 21 129/73 Nasal Cannula 04/05/17 20:00 70 04/05/17 19:30 94 Nasal Cannula 2.0 04/05/17 19:30 74 20 Nasal Cannula 2.0 04/05/17 19:30 Nasal Cannula 2.0 04/05/17 17:57 76 133/70 04/05/17 16:00 96.8 76 23 133/70 95 Nasal Cannula 1.0 04/05/17 16:00 73 04/05/17 12:06 72 117/71 04/05/17 12:00 76 04/05/17 12:00 96.4 78 21 145/88 96 Nasal Cannula 1.0 04/05/17 08:00 96.1 82 19 143/78 96 Nasal Cannula 2.0 04/05/17 08:00 77 Labs: Labs Test 04/04/17 05:10 04/05/17 06:00 White Blood Count 7.0 K/UL (4.8-10.8) 6.5 K/UL (4.8-10.8) Red Blood Count 4.05 M/UL (4.70-6.10) 4.15 M/UL (4.70-6.10) Hemoglobin 13.7 G/DL (14.2-18.0) 13.2 G/DL (14.2-18.0) Hematocrit 38.8 % (42.0-52.0) 39.0 % (42.0-52.0) Mean Corpuscular Volume 96 FL (80-99) 94 FL (80-99) Mean Corpuscular Hemoglobin 33.7 PG (27.0-31.0) 31.7 PG (27.0-31.0) Mean Corpuscular Hemoglobin Concent 35.2 G/DL (32.0-36.0) 33.8 G/DL (32.0-36.0) Red Cell Distribution Width 15.7 % (11.6-14.8) 15.2 % (11.6-14.8) Platelet Count 178 K/UL (150-450) 163 K/UL (150-450) Mean Platelet Volume 5.9 FL (6.5-10.1) 5.9 FL (6.5-10.1) Neutrophils (%) (Auto) 76.2 % (45.0-75.0) 75.4 % (45.0-75.0) Lymphocytes (%) (Auto) 17.2 % (20.0-45.0) 16.8 % (20.0-45.0) Monocytes (%) (Auto) 5.3 % (1.0-10.0) 6.1 % (1.0-10.0) Eosinophils (%) (Auto) 0.8 % (0.0-3.0) 1.3 % (0.0-3.0) Basophils (%) (Auto) 0.5 % (0.0-2.0) 0.4 % (0.0-2.0) Prothrombin Time 24.7 SEC (9.30-11.50) 28.3 SEC (9.30-11.50) Prothromb Time International Ratio 2.4 (0.9-1.1) 2.7 (0.9-1.1) Sodium Level 135 mEQ/L (135-145) 136 mEQ/L (135-145) Potassium Level 3.4 mEQ/L (3.4-4.9) 3.8 mEQ/L (3.4-4.9) Chloride Level 96 mEQ/L (98-107) 98 mEQ/L (98-107) Carbon Dioxide Level 28 mEQ/L (20-30) 28 mEQ/L (20-30) Anion Gap 11 (5-15) 10 (5-15) Blood Urea Nitrogen 17 mg/dL (7-23) 17 mg/dL (7-23) Creatinine 0.7 mg/dL (0.7-1.2) 0.7 mg/dL (0.7-1.2) Estimat Glomerular Filtration Rate mL/min (>60) mL/min (>60) Glucose Level 104 mg/dL (74-106) 102 mg/dL (74-106) Calcium Level 8.2 mg/dL (8.6-10.2) 8.3 mg/dL (8.6-10.2) Objective: WDWN NAD reduced LOC clear breath sounds bilaterally without rhonchi or wheeze [id number] without MRG NABS nontender no HSM no CCE nonfocal weak overall on oxygen FAY LLANOS Apr 06, 2017 06:51
[2017-04-06 08:02] VITALS: BP 140/90
[2017-04-06 08:30] LABS: BASOPHILS % (AUTO) 0.2 % (0.0-2.0); EOSINOPHILS % (AUTO) 2.1 % (0.0-3.0); LYMPHOCYTES % (AUTO) 15.6 % (20.0-45.0); MEAN CORPUSCULAR HEMOGLOBIN 31.9 PG (27.0-31.0); MEAN CORPUSCULAR HGB CONC 34.1 G/DL (32.0-36.0); MEAN CORPUSCULAR VOLUME 93 FL (80-99); MEAN PLATELET VOLUME 5.7 FL (6.5-10.1); MONOCYTES % (AUTO) 6.6 % (1.0-10.0); NEUTROPHILS % (AUTO) 75.6 % (45.0-75.0); PLATELET COUNT 159 K/UL (150-450); RED BLOOD COUNT 4.12 M/UL (4.70-6.10); RED CELL DISTRIBUTION WIDTH 15.2 % (11.6-14.8); WHITE BLOOD COUNT 7.2 K/UL (4.8-10.8)
[2017-04-06 08:40] LABS: INR 2.5 (0.9-1.1); PROTHROMBIN TIME 26.5 SEC (9.30-11.50)
[2017-04-06 08:44] LABS: ANION GAP 10 (5-15); CALCIUM 8.6 mg/dL (8.6-10.2); CARBON DIOXIDE 27 mEQ/L (20-30); CHLORIDE 97 mEQ/L (98-107); CREATININE 0.7 mg/dL (0.7-1.2); HEMOLYSIS 7; POTASSIUM 3.9 mEQ/L (3.4-4.9); SODIUM 134 mEQ/L (135-145)
[2017-04-06] MEDS: Augmentin 875mg Tab GT SCH (09:13)
--- NOTE | 2017-04-06 10:06 | GI Progress Note ---
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 Ayers. Assessment/Plan OB stool positive GT replaced with 20 fr >> okay to used stable H&H GT site care daily/prn GTFs per dietary monitor H&H, prn transfusions ppi abx fu labs Subjective Subjective limited Objective Last 24 Hour Vital Signs Date Time Temp Pulse Resp B/P (MAP) Pulse Ox O2 Delivery O2 Flow Rate FiO2 04/06/17 08:02 98.2 81 20 140/90 98 Nasal Cannula 04/06/17 06:05 98 153/75 04/06/17 04:31 97.2 68 21 160/68 96 Room Air 04/06/17 04:00 93 04/06/17 00:14 75 124/62 04/06/17 00:00 78 04/05/17 23:51 97.8 124 20 124/70 95 Nasal Cannula 04/05/17 20:36 97.1 73 21 129/73 Nasal Cannula 04/05/17 20:00 70 04/05/17 19:30 94 Nasal Cannula 2.0 04/05/17 19:30 74 20 Nasal Cannula 2.0 04/05/17 19:30 Nasal Cannula 2.0 04/05/17 17:57 76 133/70 04/05/17 16:00 96.8 76 23 133/70 95 Nasal Cannula 1.0 04/05/17 16:00 73 04/05/17 12:06 72 117/71 04/05/17 12:00 76 04/05/17 12:00 96.4 78 21 145/88 96 Nasal Cannula 1.0 Laboratory Tests Test 04/06/17 07:15 White Blood Count 7.2 K/UL (4.8-10.8) Red Blood Count 4.12 M/UL (4.70-6.10) L Hemoglobin 13.2 G/DL (14.2-18.0) L Hematocrit 38.5 % (42.0-52.0) L Mean Corpuscular Volume 93 FL (80-99) Mean Corpuscular Hemoglobin 31.9 PG (27.0-31.0) H Mean Corpuscular Hemoglobin Concent 34.1 G/DL (32.0-36.0) Red Cell Distribution Width 15.2 % (11.6-14.8) H Platelet Count 159 K/UL (150-450) Mean Platelet Volume 5.7 FL (6.5-10.1) L Neutrophils (%) (Auto) 75.6 % (45.0-75.0) H Lymphocytes (%) (Auto) 15.6 % (20.0-45.0) L Monocytes (%) (Auto) 6.6 % (1.0-10.0) Eosinophils (%) (Auto) 2.1 % (0.0-3.0) Basophils (%) (Auto) 0.2 % (0.0-2.0) Prothrombin Time 26.5 SEC (9.30-11.50) H Prothromb Time International Ratio 2.5 (0.9-1.1) H Sodium Level 134 mEQ/L (135-145) L Potassium Level 3.9 mEQ/L (3.4-4.9) Chloride Level 97 mEQ/L (98-107) L Carbon Dioxide Level 27 mEQ/L (20-30) Anion Gap 10 (5-15) Blood Urea Nitrogen 15 mg/dL (7-23) Creatinine 0.7 mg/dL (0.7-1.2) Estimat Glomerular Filtration Rate mL/min (>60) Glucose Level 105 mg/dL (74-106) Calcium Level 8.6 mg/dL (8.6-10.2) Height (Feet): 5 Height (Inches): 6.00 Weight (Pounds): 160 General Appearance: no apparent distress, alert, confused Cardiovascular: normal rate Respiratory/Chest: other - 2LNC Abdominal Exam: GT site - c/d/i Evy Stephen N.P. Apr 06, 2017 10:06
[2017-04-06] MEDS ORDERED: Warfarin Sodium 4mg PO SCH (17:00)
--- NOTE | 2017-04-08 17:28 | Discharge Summary ---
Discharge Summary Hospital Course Date of Admission Mar 28, 2017 at 13:48 Date of Discharge Apr 06, 2017 at 10:20 Admitting Diagnosis SEPSIS MIRANDA Mccloud is a 81 year old male who was admitted on Mar 28, 2017 at 13:48 for Sepsis Hospital Course [id number] Discharge Discharge Disposition Patient was discharged to SNF/Subacute Facility(03) Discharge Diagnoses: Chen Gaviria NP Apr 08, 2017 17:28
--- NOTE | 2017-04-09 03:45 | Discharge Summary 2 SIG ---
DATE OF ADMISSION: 03/28/2017 DATE OF DISCHARGE: 04/06/2017 CONSULTANTS: 1. Alona Frye M.D. 2. Fortunato Mock M.D. 3. Diallo Ayers M.D. 4. Tyrell Parish M.D. BRIEF HOSPITAL COURSE: The patient is an 81-year-old [place] male, who is a resident of [facility]. The patient apparently pulled out the G-tube and became short of breath. He was transferred to [facility]. On evaluation, the patient was febrile with temperature of 104 degrees. He also had tachycardia and was in atrial fibrillation with rapid ventricular response, initially was in the 160s. He was given IV Cardizem. Chest x-ray done showed no obvious pneumonia, however, there is consideration for possible aspiration pneumonia. He had elevated troponin 0.52 and potassium 5.6. He was admitted to ICU and was given Cardizem drip. He was empirically started on Zosyn and vancomycin. He was placed on non-rebreather and venturi mask. Venous duplex of lower extremity was negative for DVT. G-tube was replaced with a 20-Khmer tube and confirmed by the abdominal x-ray. Tube feedings were started. He was continued on anticoagulation as the patient has indications for full anticoagulation due to atrial fibrillation for stroke prevention. Diltiazem drip was discontinued and was switched to G-tube. Rate controlled. Blood culture did not isolate any growth. Urine showed mixed urogenital contaminants. Antibiotics were switched to Augmentin and doxycycline and the patient was eventually discharged back to [facility]. FINAL DIAGNOSES: 1. Sepsis, secondary to aspiration pneumonia. 2. Atrial fibrillation with rapid ventricular response. 3. Percutaneous endoscopic gastrostomy tube replacement. 4. Acute kidney injury. 5. Hypertension. 6. Diabetes mellitus. 7. History of normal pressure hydrocephalus. DISPOSITION: The patient was discharged to [facility]. DISCHARGE MEDICATIONS: Refer to medication list. Eugene Caraballo M.D. I have been assigned to dictate discharge summary on this account and I was not involved in the patient's management. Chen Gaviria N.P. DR: BELLE JOB#: [id number] CC:
== END 2017-04-06 10:20 | DRG 871 ==
LOC: EDBD 13:10 → EMR 13:35 → ICU 13:48 → EDBEDREQSVC 14:07 → EDBEDREQ 15:57 → ICU 16:30 → 2E 03-30 22:54
PROC: 0D20XUZ Change Feeding Device in Upper Intestinal Tract, External Approach (ICD-10-PCS; principal; 2017-03-31)
DX: A41.9 Sepsis, unspecified organism (principal); J69.0 Pneumonitis due to inhalation of food and vomit; J96.01 Acute respiratory failure with hypoxia; N17.9 Acute kidney failure, unspecified; E87.0 Hyperosmolality and hypernatremia; I48.2 Chronic atrial fibrillation; G91.2 (Idiopathic) normal pressure hydrocephalus; E86.0 Dehydration; F03.90 Unspecified dementia, unspecified severity, without behavioral disturbance, psychotic disturbance, mood disturbance, and anxiety; R13.10 Dysphagia, unspecified; Z43.1 Encounter for attention to gastrostomy; I10 Essential (primary) hypertension; J44.9 Chronic obstructive pulmonary disease, unspecified; N40.0 Benign prostatic hyperplasia without lower urinary tract symptoms; D64.9 Anemia, unspecified; E87.6 Hypokalemia; D72.829 Elevated white blood cell count, unspecified; E11.9 Type 2 diabetes mellitus without complications; Z79.01 Long term (current) use of anticoagulants; R26.89 Other abnormalities of gait and mobility; Z86.73 Personal history of transient ischemic attack (TIA), and cerebral infarction without residual deficits; K21.9 Gastro-esophageal reflux disease without esophagitis; K29.70 Gastritis, unspecified, without bleeding
CPT/HCPCS: 36415; 36600; 43760; 71010; 74000; 80048; 80053; 80202; 81003; 82248; 82270; 82378; 82550; 82553; 82607; 82728; 82746; 82803; 83540; 83550; 83605; 83735; 83880; 84100; 84439; 84443; 84484; 85007; 85025; 85044; 85610; 87040; 87081; 87086; 93005; 93306; 93970; 94664; 94760